=== PATIENT | female | born 1935 | race Caucasian/White ===

== ENCOUNTER 2017-07-03 17:42 | Inpatient (IN) | payer MEDICARE, OTHER ==
[2017-07-03] VITALS (8 sets, daily range): BP systolic 102–153; BP diastolic 49–102
[~2017-07-03] VITALS: Ht 147.3 cm; Wt 49.5 kg
[~2017-07-03 17:42] MED LIST: CARVEDILOL6.25 MG PO; FERROUS SULFAT325 MG PO; LEVOFLOXACIN500 MG PO; METFORMIN HCL500 MG PO; MYRBETRIQ25 MG PO; SULAR17 MG PO
[2017-07-03] MEDS ORDERED: SODIUM CHLORIDE 0.9% 1000ML 1,000 ML ONE (18:13)
[2017-07-03 18:47] LABS: BASOPHILS % 0.1 % (0.0-1.0); HEMATOCRIT 28.9 % (34.2-44.1); LYMPHOCYTES # (AUTO) 1.9 (1.0-3.2); LYMPHOCYTES % 5.2 % (18.0-39.1); MEAN CORPUSCULAR HEMOGLOBIN 30.6 pg (28-32); MEAN CORPUSCULAR HGB CONC 34.6 g/dL (31-35); MEAN CORPUSCULAR VOLUME 88.4 fL (81-99); MONOCYTES # (AUTO) 1.1 (0.2-0.8); MONOCYTES % 2.9 % (4.4-11.3); NEUTROPHILS # (AUTO) 32.5 (2.1-6.9); NEUTROPHILS % 88.1 % (38.7-80.0); PLATELET COUNT 327 x10e3/uL (140-360); RED BLOOD COUNT 3.27 x10e6/uL (3.6-5.1); RED CELL DISTRIBUTION WIDTH 14.2 % (11.7-14.4)
[2017-07-03 18:51] LABS: BILIRUBIN,URINE NEGATIVE (NEGATIVE); CLARITY,URINE CLOUDY (CLEAR); COLOR,URINE YELLOW (YELLOW); KETONES,URINE NEGATIVE (NEGATIVE); LEUKOCYTE ESTERASE ,URINE 2+ (NEGATIVE); URINE UROBILINOGEN 0.2 mg/dL (0.2 - 1)
[2017-07-03 18:54] LABS: INR 1.03
[2017-07-03 18:55] LABS: NITRITE,URINE POSITIVE (NEGATIVE); PARTIAL THROMBOPLASTIN TIME 29.2 seconds (23.8-35.5)
[2017-07-03 18:56] LABS: PROTEIN,URINE DIPSTICK 2+ (NEGATIVE)
[2017-07-03 19:00] LABS: BACTERIA,URINE MANY /HPF; EPITHELIAL CELLS,URINE RARE /LPF; WBC,URINE (MAN) >50 /HPF (0-5)
[2017-07-03 19:02] LABS: ABG PH 7.41 (7.31-7.41)
[2017-07-03 19:02] LABS: ALBUMIN 2.2 g/dL (3.5-5.0); ALBUMIN/GLOBULIN RATIO 0.5 (0.8-2.0); ANION GAP 12.9 mmol/L (8-16); CALCIUM 8.1 mg/dL (8.4-10.2); CREATININE, SERUM 1.08 mg/dL (0.57-1.11)
[2017-07-03 19:05] LABS: POTASSIUM 2.9 mmol/L (3.5-5.1)
--- NOTE | 2017-07-03 19:07 | Diagnostic Imaging Report ---
EXAMINATION: Chest, CHEST SINGLE (PORTABLE) INDICATION: Chest pain COMPARISON: None FINDINGS: LINES: Endotracheal catheter is present with the tip projecting over the expected region of the trachea, positioned 2 cm from the nehemiah. Heart: Normal cardiac silhouette. Vascular: The pulmonary vasculature is within normal limits. Atherosclerotic calcifications of the aortic arch. Mediastinum: No mediastinal, hilar, or axillary mass or lymphadenopathy. Lungs: No parenchymal mass. Right lung base airspace opacity. Pleura: Small bilateral pleural effusions. No pneumothorax. Bones: No acute osseous abnormality. Degenerative changes of the thoracic spine. Degenerative changes of the right shoulder. Median sternotomy wires. Soft tissues: Normal. Impression: Right lung base airspace opacity may represent a developing pneumonia. Small bilateral pleural effusions. Signed by: Dr. Shmuel Rodgers M.D. on 07/03/2017 7:03 PM
[2017-07-03 19:08] LABS: CREATINE KINASE MB 0.6 ng/mL (0.00-5.00); TROPONIN I 0.018 ng/mL (0-0.300)
[2017-07-03] MEDS ORDERED: SODIUM CHLORIDE 0.9% 1000ML 1,000 ML IV SCH (19:10)
[2017-07-03] MEDS ORDERED: AZITHROMYCIN 500MG/SOD CHL 0.9% 250ML BAG IV SCH (19:15)
[2017-07-03] MEDS ORDERED: LEVOFLOXACIN 750MG/DEXTROSE PREMIX BAG 150ML IV SCH (19:15)
[2017-07-03] MEDS ORDERED: LEVOFLOXACIN 500MG/D5W 100ML 0 ML IV ONE (19:19)
[2017-07-03] MEDS ORDERED: POTASSIUM CHLORIDE 20MEQ/100ML 100 ML IV STA (19:45)
--- NOTE | 2017-07-03 19:49 | Diagnostic Imaging Report ---
EXAMINATION: Head CT without contrast. HISTORY:Unresponsive. COMPARISON:None. TECHNIQUE: Multidetector axial images were obtained from the foramen magnum to the vertex without contrast. The images were reconstructed using brain and bone algorithms. Thin section brain images were reformatted into coronal and sagittal planes. Intravenous contrast: None IMAGE QUALITY: Suboptimal evaluation due to motion-related streak artifacts. FINDINGS: Skull/scalp: No abnormality. Parenchyma: Nonspecific few, scattered supratentorial white matter patchy hypodensity are likely related to small vessel ischemic changes. No acute hemorrhage, mass or acute major vascular territorial infarct. Arteries: Atherosclerotic calcification in bilateral carotid siphon and V4 segment of the vertebral arteries. Dural sinuses: No abnormal density suggestive of thrombosis. Ventricles: Mild compensated dilatation due to volume loss. No hydrocephalus. Extra-axial spaces: No abnormal density. Brain volume: Generalized age-related cerebral volume loss. Craniocervical junction: No mass, Chiari malformation, or basilar invagination. Sella: No mass. Paranasal/mastoid sinuses: Imaged portions unremarkable. IMPRESSION: No acute intracranial abnormality, particularly no acute hemorrhage, mass or acute major vascular territorial infarct. Mild supratentorial white matter microvascular ischemic changes. Generalized age-related cerebral volume loss. Signed by: Dr. Kylie James M.D. on 07/03/2017 7:45 PM
[2017-07-03] MEDS ORDERED: POTASSIUM CHLORIDE 20MEQ/100ML 100 ML ONE (19:52)
[2017-07-03] MEDS: KCL 20MEQ/.9 SOD CHL 1,000 ML IV SCH (20:04)
[2017-07-03 20:09] LABS: BAND NEUTROPHILS % (MANUAL) 28 %; LYMPHOCYTES % (MANUAL) 2 % (19-48); MONOCYTES % (MANUAL) 2 % (3.4-9.0); NEUTROPHILS % (MANUAL) 67 % (40-74)
[2017-07-03 20:10] LABS: PLATELET ESTIMATE ADEQUATE; PLATELET MORPHOLOGY COMMENT FEW LARGE; RBC MORPHOLOGY COMMENT NORMAL
[2017-07-03] MEDS ORDERED: ASCORBIC ACID500 MG PO (20:49)
[2017-07-03] MEDS ORDERED: OS-CAL 500+D T1 EACH PO (20:49)
[2017-07-03] MEDS ORDERED: PANTOPRAZOLE SO40 MG PO (20:49)
[2017-07-03] MEDS ORDERED: PERCOCET 10-321 EACH PO (20:49)
[2017-07-03] MEDS ORDERED: GABAPENTIN100 MG PO (20:49)
[2017-07-03] MEDS ORDERED: IMODIUM2 MG PO (20:49)
[2017-07-03] MEDS ORDERED: NOVOLOG100 UNITS1 (20:49)
[2017-07-03] MEDS ORDERED: TRESIBA SC (20:49)
[2017-07-03] MEDS ORDERED: URSODIOL300 MG PO (20:49)
[2017-07-03] MEDS ORDERED: MULTIVITAMINS1 EAC7 PO (20:49)
[2017-07-03] MEDS ORDERED: VOLTAREN100 GM TD (20:49)
[2017-07-03] MEDS ORDERED: VANCOMYCIN HCL 1GM/NS 250 ML BAG IV SCH (21:00)
[2017-07-03] MEDS ORDERED: DEXTROSE 50% SYRINGE 50 ML IV PRN (21:45)
[2017-07-03] MEDS: VANCOMYCIN HCL 1GM/NS 250 ML BAG IV SCH (23:30)
[2017-07-04] VITALS (96 sets, daily range): BP systolic 81–170; BP diastolic 41–105
[2017-07-04] MEDS: FENTANYL CITRATE INJ 2,000 MCG in SODIUM CHLORIDE 0.9% 250ML 210 ML IV PRN (00:10)
[2017-07-04] MEDS ORDERED: ACETAMINOPHEN 325 MG SUPP PR PRN (00:15)
[2017-07-04] MEDS: ALBUTEROL/IPRATROPIUM 3 ML NEB NEB SCH ×4 (01:00→19:57)
[2017-07-04] MEDS: KCL 20MEQ/.9 SOD CHL 1,000 ML IV SCH (04:24)
[2017-07-04 07:17] LABS: BASOPHILS # (AUTO) 0.1 (0.0-0.1); BASOPHILS % 0.4 % (0.0-1.0); HEMATOCRIT 26.5 % (34.2-44.1); HEMOGLOBIN 9.1 g/dL (12.0-16.0); LYMPHOCYTES # (AUTO) 1.6 (1.0-3.2); MEAN CORPUSCULAR HEMOGLOBIN 30.3 pg (28-32); MEAN CORPUSCULAR HGB CONC 34.3 g/dL (31-35); MEAN CORPUSCULAR VOLUME 88.3 fL (81-99); MONOCYTES # (AUTO) 0.6 (0.2-0.8); MONOCYTES % 2.7 % (4.4-11.3); NEUTROPHILS # (AUTO) 19.6 (2.1-6.9); PLATELET COUNT 253 x10e3/uL (140-360); RED CELL DISTRIBUTION WIDTH 14.1 % (11.7-14.4)
[2017-07-04 07:41] LABS: ALANINE AMINOTRANSFERASE 11 IU/L (0-55); ALBUMIN 1.8 g/dL (3.5-5.0); ALBUMIN/GLOBULIN RATIO 0.5 (0.8-2.0); ALKALINE PHOSPHATASE 115 IU/L (40-150); ANION GAP 10.4 mmol/L (8-16); BLOOD UREA NITROGEN 13 mg/dL (7-26); BUN/CREATININE RATIO 16 (6-25); CALCIUM 7.5 mg/dL (8.4-10.2); CARBON DIOXIDE 19 mmol/L (22-29); CHLORIDE 103 mmol/L (98-107); EST GLOMERULAR FILTRATION RATE > 60 ML/MIN (60-); GLUCOSE 79 mg/dL (74-118); PHOSPHORUS 1.4 MG/DL (2.3-4.7); POTASSIUM 3.4 mmol/L (3.5-5.1); SODIUM 129 mmol/L (136-145)
[2017-07-04] MEDS ORDERED: KCL 20MEQ/.9 SOD CHL 1,000 ML IV SCH (07:45)
[2017-07-04 07:55] LABS: MAGNESIUM 0.9 MG/DL (1.3-2.1)
[2017-07-04] MEDS ORDERED: MAGNESIUM SULFATE 2GM/50ML 50 ML IV ONE (08:15)
[2017-07-04] MEDS ORDERED: MAGNESIUM SULF 1GRAM/DEXTROSE 100 ML IV ONE (08:15)
[2017-07-04] MEDS ORDERED: POTASSIUM CHLORIDE 20MEQ/100ML 100 ML IV ONE ×2 (08:15→19:00)
[2017-07-04 09:02] LABS: BAND NEUTROPHILS % (MANUAL) 9 %; EOSINOPHILS % (MANUAL) 1 % (0-7); LYMPHOCYTES % (MANUAL) 3 % (19-48); MONOCYTES % (MANUAL) 3 % (3.4-9.0); NEUTROPHILS % (MANUAL) 84 % (40-74)
[2017-07-04 09:03] LABS: ANISOCYTOSIS SLIGHT; HYPOCHROMASIA SLIGHT; RBC MORPHOLOGY COMMENT NORMAL
[2017-07-04 09:04] LABS: PLATELET ESTIMATE ADEQUATE; PLATELET MORPHOLOGY COMMENT NORMAL
[2017-07-04] MEDS: D5NS/KCL 20MEQ 1,000 ML IV SCH ×3 (10:49→21:02)
[2017-07-04] MEDS: VANCOMYCIN HCL 1GM/NS 250 ML BAG IV SCH (10:50)
[2017-07-04] MEDS ORDERED: DEXTROSE 50% SYRINGE 50 ML IV PRN (18:30)
[2017-07-04] MEDS ORDERED: FUROSEMIDE INJ 10 MG/ML 2 ML VIAL IV ONE (18:45)
[2017-07-04] MEDS: ENOXAPARIN SOD INJ 40 MG/0.4 ML SYR SC SCH (18:57)
[2017-07-04 19:36] LABS: MAGNESIUM 1.6 MG/DL (1.3-2.1); PHOSPHORUS 1.5 MG/DL (2.3-4.7)
[2017-07-04 19:43] LABS: ANION GAP 11.3 mmol/L (8-16); BLOOD UREA NITROGEN 10 mg/dL (7-26); BUN/CREATININE RATIO 12 (6-25); CARBON DIOXIDE 15 mmol/L (22-29); CHLORIDE 107 mmol/L (98-107); CREATININE, SERUM 0.82 mg/dL (0.57-1.11); EST GLOMERULAR FILTRATION RATE > 60 ML/MIN (60-); GLUCOSE 319 mg/dL (74-118); POTASSIUM 4.3 mmol/L (3.5-5.1); SODIUM 129 mmol/L (136-145)
[2017-07-04] MEDS ORDERED: MAGNESIUM SULFATE 2GM/50ML 50 ML IV PRN (20:30)
[2017-07-04] MEDS: FAMOTIDINE 20 MG/2 ML VIAL IV SCH (21:02)
[2017-07-04] MEDS: CEFEPIME 1GM/NS 0.9% 50 ML 50 ML IV SCH (21:02)
[2017-07-04] MEDS ORDERED: CEFOXITIN SOD 1 GM VIAL ONE (21:03)
[2017-07-04] MEDS: INSULIN REGULAR, HUMAN 100 UNIT/1 ML 3ML VIAL SQ SCH (21:03)
[2017-07-04] MEDS: MIDAZOLAM HCL 2 MG/2 ML VIAL IV PRN (23:00)
[2017-07-05] VITALS (69 sets, daily range): BP systolic 77–167; BP diastolic 44–86
--- NOTE | 2017-07-05 00:02 | History and Physical ---
PRIMARY CARE PROVIDER: Dr. Cesar Frost at [facility]. CHIEF COMPLAINT: Unresponsive. HISTORY OF PRESENT ILLNESS: Ms. Feldman is an 81-year-old lady found unresponsive at the [facility] and sent to the ER for evaluation. She was urgently intubated in the ED for altered mental status. REVIEW OF SYSTEMS: Unobtainable as the patient is intubated. PAST MEDICAL HISTORY: Significant for hypertension, coronary artery disease, aortic stenosis, type 2 diabetes and frequent UTIs. She has a history of aortic valve replacement and one vessel CABG in 2010. She has a distant history of hysterectomy. She has had 2 bladder suspensions done in 2005 in an attempt to address these recurrent UTIs. CURRENT MEDICATIONS: Coreg 6.25 mg twice daily. Ascorbic acid 500 mg twice daily. Gabapentin 100 mg twice a day. Multivitamin daily. Myrbetriq extended release 50 mg daily. NovoLog insulin on a sliding scale. Os-Laz + D 500 mg twice a day. Oxycodone 1/2 tablet every 6 hours as needed. for pain. Protonix 20 mg q.a.m. Tresiba flex touch 12 units a day. Ursodiol 300 mg daily. Voltaren gel. ALLERGIES: SHE HAS A STATED ALLERGY TO ITRACONAZOLE. FAMILY HISTORY: Significant for hypertension and diabetes. SOCIAL HISTORY: The patient currently residing at the [facility] where she is being treated for recurrent UTIs. She does smoke, drink or use illegal drugs. She requires quite a bit of assistance with ADLs. PHYSICAL EXAM: PSYCHIATRIC: Patient is awake and following commands. VITAL SIGNS: Blood pressure 116/57. Pulse 96 and regular. Respiratory rate 17, ventilated. O2 sat 98%. Temperature 99.3. . HEENT: Head is atraumatic. Eyes are anicteric with clear conjunctivae. Ears and nares are without erythema or discharge. Oropharynx is clear. NECK: Supple with no masses or thyromegaly. LYMPHATIC SYSTEM: She has no palpable cervical, axillary or inguinal adenopathy. CARDIOVASCULAR: Her heart has a regular rate and rhythm without murmur or extra heart sounds. No peripheral edema. RESPIRATORY: Lungs are clear to auscultation and percussion. She is being ventilated. GASTROINTESTINAL: Abdomen is soft without organomegaly, masses or tenderness. She has normal bowel sounds present. CUTANEOUS: Her skin is warm and dry to touch with no rash or skin breakdown. MUSCULOSKELETAL: Joints are normal alignment without erythema or swelling. She has no calf tenderness. NEUROLOGIC: Exam is nonfocal with intact cranial nerves and no motor or sensory deficits. DIAGNOSTIC STUDIES: Chest x-ray shows right lower lobe atelectasis, possible early pneumonia. CT scan of brain shows no acute disease, but does show extensive microvascular changes and atrophy consistent with age. Her UA has greater than 50 white cells and her urine culture is growing greater than 100,000 gram-negative rods. BNP 347.0. Troponin 0.018, lactic acid 10.5. Her chemistry profile: Sodium is 121. Potassium 2.9, chloride 92. CO2 19. Calcium 8.1. Glucose 137. Creatinine is 1.08. BUN 17 for a GFR 49. After 24 hour hydration with D5 normal saline and potassium, patient has a sodium of 129, potassium 3.4. CO2 is still 19. Creatinine 0.80. BUN 13 for a normal GFR. Calcium 7.5. Magnesium 0.9. Phosphorus 1.4. Glucose 79. Transaminases, bilirubin and alkaline phos are normal. CBC shows a white count of 38.8 thousand with 88% neutrophils, 5% lymphocytes and 3% monocytes. Hemoglobin 10.0, hematocrit 28.9 and platelet count 327,000. IMPRESSION AND PLAN 1. Acute respiratory failure secondary to altered mental status and sepsis. The patient was intubated and is on a ventilator, admitted to ICU. Pulmonary services managing the ventilator weaning. 2. Urinary tract infection with sepsis. The patient is started on IV vancomycin, Levaquin and cefepime in view of previous recurrent UTIs [facility]. 3. Possible right lower lobe pneumonia. Again, will continue Levaquin and cefepime and will check another chest x-ray tomorrow. Will consult infectious disease for assistance with the recurrent urinary tract infection and sepsis. 4. Hypertension. Will continue her Coreg. 5. Type 2 diabetes. Will use sliding scale insulin. 6. For prophylaxis will use Lovenox for DVT prophylaxis and Pepcid for GI prophylaxis. Job#: [id number]
[2017-07-05] MEDS: MIDAZOLAM HCL 2 MG/2 ML VIAL IV PRN (01:00)
[2017-07-05] MEDS: ALBUTEROL/IPRATROPIUM 3 ML NEB NEB SCH ×4 (01:08→19:30)
[2017-07-05] MEDS: FENTANYL CITRATE INJ 2,000 MCG in SODIUM CHLORIDE 0.9% 250ML 210 ML IV PRN ×2 (01:15→04:46)
--- NOTE | 2017-07-05 01:19 | Consultation ---
DATE OF CONSULTATION: July 04, 2017 PULMONARY/CRITICAL CARE MEDICINE CONSULT REFERRING PHYSICIAN: Dr. Frost REASON FOR REFERRAL: Acute respiratory failure. HISTORY: Ms. Feldman is a pleasant 81-year-old female with acute respiratory failure. Patient has been having worsening pain over the last year. While she was basically independent per the family, she did have a fracture of the hip in about November 2016. Since then, she is confined to the home. She does walk with the walker inside the house. She used to get out 3 times a week, but now is mostly homebound. Patient was having repetitive urinary tract infection. Furthermore, patient with issues with eating and labs. Family reports "malnutrition" diagnosis. Patient was at nursing facility, where she has recovered from recent colitis and urinary tract infection. Patient was having worsening mentation. She is having appearance of more shortness of breath. She was transferred to acute care facility [facility]. Patient came to the ER and was found to have abnormal urinalysis. Furthermore, chest x-ray with some infiltrates versus atelectasis plus effusion. She was intubated. Low urine output so far. I am consulted. PAST MEDICAL HISTORY: Coronary artery disease, status post CABG, valvular disease, status post valve replacement. Weakness. Recurrent UTI. Hip fracture. MEDICATIONS: Medication list reviewed per electronic record. ALLERGIES: ITRACONAZOLE. SOCIAL HISTORY: Cannot get it as she is not verbalizing. No smoking, no drinking, no drugs. FAMILY HISTORY: Noncontributory to this condition. REVIEW OF SYSTEMS: Cannot get it as she is intubated. OBJECTIVE VITAL SIGNS: 100.7 temperature maximum. Other vital signs noted per record. She is on pressors. GENERAL: On vent, pale, awake despite ventilator. HEENT: Normocephalic, atraumatic. NECK: Supple. Throat midline. LUNGS: Bilateral air entry, few rhonchi. CARDIOVASCULAR: S1/S2. No murmurs, rubs or gallops. ABDOMEN: Soft, nontender. EXTREMITIES: No clubbing, no cyanosis. There is the 1+ edema. INTEGUMENT: No rash, no purpura. LABS: 121 sodium, phosphorus 1.4. Magnesium 0.9. 37,000 white count, 26 hematocrit, 253,000 platelets, 20% bands. BNP was 348. Albumin was 1.8. INR is 1.03. IMPRESSIONS AND PLAN 1. Acute respiratory failure, intubated. 2. Severe sepsis. 3. Clinical likely urinary tract infection, severe. 4. Abnormal chest x-ray possible pneumonia. 5. Abnormal chest x-ray, possible fluid overload. 6. Recurrent urinary tract infection. 7. Electrolyte abnormalities including hyponatremia, hypophosphatemia, hypomagnesemia, hypokalemia. 8. Severe protein-calorie malnutrition. 9. Coronary artery disease. 10. Aortic valve replacement. 11. Other history not totally known. Continue current treatment. Follow up on high-dose antibiotics. Will modify and adjust dosing as needed. Follow up kidney function. Good amount of fluid bolusing today. Later, towards evening, we gave some diuretics. She is responding well. She remains on pressors. Will consider extubating with further improvement. I discussed in detail with family, staff, and physicians. Thank you very much, Dr. Frost, for allowing me the chance to participate in the care of Ms. Feldman. Do not hesitate to contact me if I can help in any way. Thirty minutes of direct care today, multiple evaluations, and multiple followups. Job#: [id number] CQ
[2017-07-05] MEDS: CEFEPIME 1GM/NS 0.9% 50 ML 50 ML IV SCH ×2 (01:50→09:48)
[2017-07-05] MEDS: INSULIN REGULAR, HUMAN 100 UNIT/1 ML 3ML VIAL SQ SCH ×3 (03:25→16:30)
[2017-07-05 06:05] LABS: BASOPHILS # (AUTO) 0.1 (0.0-0.1); BASOPHILS % 0.3 % (0.0-1.0); EOSINOPHILS % 0.1 % (0.0-6.0); HEMATOCRIT 25.7 % (34.2-44.1); HEMOGLOBIN 8.7 g/dL (12.0-16.0); LYMPHOCYTES # (AUTO) 2.5 (1.0-3.2); LYMPHOCYTES % 9.1 % (18.0-39.1); MEAN CORPUSCULAR HEMOGLOBIN 30.7 pg (28-32); MEAN CORPUSCULAR HGB CONC 33.9 g/dL (31-35); MEAN CORPUSCULAR VOLUME 90.8 fL (81-99); MONOCYTES # (AUTO) 1.4 (0.2-0.8); NEUTROPHILS % 82.9 % (38.7-80.0); PLATELET COUNT 245 x10e3/uL (140-360); RED BLOOD COUNT 2.83 x10e6/uL (3.6-5.1); RED CELL DISTRIBUTION WIDTH 14.5 % (11.7-14.4)
[2017-07-05 06:25] LABS: ALANINE AMINOTRANSFERASE 9 IU/L (0-55); ALBUMIN 1.7 g/dL (3.5-5.0); ALBUMIN/GLOBULIN RATIO 0.5 (0.8-2.0); ALKALINE PHOSPHATASE 118 IU/L (40-150); ANION GAP 9.3 mmol/L (8-16); BLOOD UREA NITROGEN 10 mg/dL (7-26); BUN/CREATININE RATIO 12 (6-25); CALCIUM 7.4 mg/dL (8.4-10.2); CARBON DIOXIDE 17 mmol/L (22-29); CHLORIDE 111 mmol/L (98-107); CREATININE, SERUM 0.81 mg/dL (0.57-1.11); EST GLOMERULAR FILTRATION RATE > 60 ML/MIN (60-); GLUCOSE 99 mg/dL (74-118); MAGNESIUM 1.5 MG/DL (1.3-2.1); PHOSPHORUS 1.3 MG/DL (2.3-4.7); POTASSIUM 3.3 mmol/L (3.5-5.1); SODIUM 134 mmol/L (136-145)
[2017-07-05 06:58] LABS: FREE T4 (FREE THYROXINE) 1.12 ng/dL (0.8-1.8); THYROID STIMULATING HORMONE 2.939 uIU/mL (0.350-4.940)
[2017-07-05] MEDS: D5NS/KCL 20MEQ 1,000 ML IV SCH ×2 (06:58→19:55)
[2017-07-05] MEDS: POTASSIUM CHLORIDE 20MEQ/100ML 200 ML IV PRN (06:59)
--- NOTE | 2017-07-05 07:02 | Diagnostic Imaging Report ---
EXAM: CHEST SINGLE (PORTABLE), AP 1 view DATE: 07/05/2017 5:00 AM Time stamp on exam: O 0559 hours INDICATION: Intubated, pneumonia COMPARISON: AP view of the chest July 03, 2017 FINDINGS: LINES/TUBES: Stable position of endotracheal tube. LUNGS: Vascular congestion and bibasilar atelectasis. PLEURA: Small bilateral layering pleural effusions. HEART AND MEDIASTINUM: Stable appearance. BONES AND SOFT TISSUES: Advanced degenerative changes of the right shoulder. IMPRESSION: No interval change. Signed by: Dr. Rafia Redman M.D. on 07/05/2017 6:59 AM
[2017-07-05] MEDS ORDERED: POTASSIUM CHLORIDE 20MEQ/100ML 100 ML ONE (07:06)
[2017-07-05] MEDS ORDERED: VANCOMYCIN HCL 1GM/NS 250 ML BAG IV SCH (09:00)
[2017-07-05] MEDS ORDERED: VANCOMYCIN 1GM/NS 250 ML 250 ML IV SCH (09:00)
[2017-07-05] MEDS: FAMOTIDINE 20 MG/2 ML VIAL IV SCH ×2 (09:48→22:25)
[2017-07-05 10:03] LABS: BAND NEUTROPHILS % (MANUAL) 2 %; LYMPHOCYTES % (MANUAL) 7 % (19-48); MONOCYTES % (MANUAL) 4 % (3.4-9.0); NEUTROPHILS % (MANUAL) 87 % (40-74)
[2017-07-05 10:04] LABS: HYPOCHROMASIA SLIGHT; PLATELET ESTIMATE ADEQUATE
[2017-07-05 10:05] LABS: ANISOCYTOSIS SLIGHT
[2017-07-05 10:06] LABS: PLATELET MORPHOLOGY COMMENT NORMAL; RBC MORPHOLOGY COMMENT NORMAL
[2017-07-05] MEDS ORDERED: POTASSIUM CHLORIDE 20MEQ/100ML 100 ML IV ONE ×2 (11:30→11:45)
[2017-07-05] MEDS ORDERED: MAGNESIUM SULF 1GRAM/DEXTROSE 100 ML IV ONE (11:30)
[2017-07-05] MEDS ORDERED: FUROSEMIDE INJ 10 MG/ML 4 ML VIAL ONE (11:32)
[2017-07-05] MEDS ORDERED: LEVOFLOXACIN 750MG/D5W 150ML 150 ML IV SCH (12:00)
[2017-07-05] MEDS: FUROSEMIDE INJ 10 MG/ML 2 ML VIAL IV SCH (12:14)
--- NOTE | 2017-07-05 13:23 | Progress Note ---
DATE: July 05, 2017 PULMONARY MEDICINE PROGRESS NOTE SUBJECTIVE: Ernie Feldman was seen and examined at bedside. She remains intubated at this time. White count did come down minimally. However, she did respond very well yesterday to the fluid loading and then diuresis. Her C. diff assay did come back positive as she did have some diarrhea. Liters in 3.6, liters out 2.7. REVIEW OF SYSTEMS: No ability to get as she is intubated. OBJECTIVE VITAL SIGNS: Afebrile. Vital signs noted per electronic record. GENERALLY: No acute distress, alert and calm on ventilator. HEENT: Normocephalic, atraumatic. NECK: Supple. Throat midline. LUNGS: Bilateral air entry, a few rhonchi. CARDIOVASCULAR: S1 and S2. No murmurs, rubs or gallops. ABDOMINAL: Soft, nontender. EXTREMITIES: No clubbing, no cyanosis. There is 1+ edema. INTEGUMENT: No rash. No purpura. LABS: Potassium 3.3, sodium 134, BUN 10, creatinine 0.81. White count 28, hematocrit 37, platelets 245. IMPRESSION AND PLAN 1. Acute respiratory failure, intubated. 2. Clostridium difficile colitis. 3. Urinary tract infection, gram-negative, greater than 100,000 per high-power field. 4. Secondary fluid overload. 5. Possible pneumonia, less likely. 6. Hypokalemia. 7. Hypomagnesemia. 8. Hypophosphatemia. 9. Weakness. Continue current treatment at this time. Antibiotics have been adjusted. Follow up cultures for sensitivity. Patient will go for CAT scan reportedly of the abdomen today. Thereafter, we will consider extubation if she is able to tolerate. Give some Lasix and diurese her more before the possibility of extubation if her x-ray today is worse. Will follow up closely. We have been continuously repleting electrolytes given the fluid shifting. Greater than 30 minutes in direct care today in coordination. Job#: [id number] EV
--- NOTE | 2017-07-05 15:24 | Diagnostic Imaging Report ---
PROCEDURE: CT ABDOMEN AND PELVIS WITHOUT CONTRAST TECHNIQUE: The abdomen and pelvis were scanned utilizing a multidetector helical scanner from the diaphragm to the lesser trochanter after the oral administration of water. No IV contrast was administered per protocol. Coronal and sagittal multiplanar reformations were obtained. COMPARISON: None. INDICATIONS: sepsis, stone protocol FINDINGS: ABSENCE OF INTRAVENOUS CONTRAST DECREASES SENSITIVITY FOR DETECTION OF FOCAL LESIONS AND VASCULAR PATHOLOGY. LOWER THORAX: Small bilateral pleural effusions. Right lower lobe consolidation with air bronchograms (series 3, image 5). Mild compressive atelectasis of the left lower lobe. Atherosclerotic calcification of the aortic valve, coronary arteries and likely mitral anulus.. HEPATOBILIARY: Markedly nodular contour of the liver, consistent with cirrhosis. 2 mm calcification in the right hepatic lobe, likely representing a calcified granuloma (series 3, image 57). No other focal lesions. No intrahepatic or extrahepatic biliary ductal dilation. Gallbladder is hydropic. No radiopaque stones. No wall thickening. SPLEEN: No splenomegaly. PANCREAS: Marked fatty replacement of the pancreas and atrophy. No ductal dilation or focal lesion. ADRENALS: No adrenal nodules. KIDNEYS/URETERS: Right: 2-3 mm nonobstructing calculus in the interpolar region (series 3, image 45). 3-4 mm, nonobstructing calculus in the interpolar region (series 3, image 47). No other renal or any ureteral calculi. No hydronephrosis or obstruction. No renal contour abnormality. Mild surrounding perinephric stranding. Left: No renal or ureteral calculi. No hydronephrosis or obstruction. No renal contour abnormality. Mild perinephric stranding. PELVIC ORGANS/BLADDER: Evaluation of the pelvis is limited by beam hardening artifact from bilateral hip hardware. Daly catheter in place. Moderate circumferential bladder wall thickening. No definite focal lesions. The uterus is nonvisualized. No adnexal masses. PERITONEUM / RETROPERITONEUM: Small amount of perihepatic and abdominal ascites. Moderate amount of fluid in the pelvis. LYMPH NODES: No lymphadenopathy. VESSELS: Atherosclerotic calcification of the abdominal aorta, iliac vessels and aortic branches. GI TRACT: Moderate diffuse wall thickening involving the cecum, ascending, proximal and distal transverse, and proximal descending colon, with mild surrounding stranding (for example, series 3, image 77 in the hepatic flexure). No bowel dilation or evidence of obstruction. BONES AND SOFT TISSUES: Marked osteopenia with compression fractures of L1 and L2 status post vertebroplasty changes. Decreased height of the L4 and T12 vertebral bodies, likely representing chronic compression deformities. Bilateral humeral neck and head screws. A right femoral intramedullary carmencita is also noted. Generalized anasarca. Several rounded focal areas of nodularity and stranding in the subcutaneous soft tissues of the anterior lower abdomen/pelvis likely represent injection sites (for example series 3, images 111 and 105).. IMPRESSION: 1. 2 nonobstructing calculi in the right kidney. No ureteral, or bladder calculi. No hydronephrosis or obstruction. 2. Right lower lobe consolidation with air bronchograms, likely reflecting a combination of atelectasis and pneumonia. 3. Small bilateral pleural effusions. 4. Findings in the cecum, ascending, proximal and distal transverse, and proximal descending colon are suspicious for colitis, probably infectious (particularly if the patient has been on antibiotics). Portal colopathy is also considered. Ischemic colitis is another consideration, it cannot be assessed on this exam given the lack of intravenous contrast. 5. Hydropic gallbladder. No wall thickening or radiopaque stones are identified. 6. Moderate circumferential bladder wall thickening. Correlate for cystitis. 7. Cirrhotic liver. No focal lesions noted in this noncontrast exam. Babatunde Shelton M.D. Dictated by: Babatunde Shelton M.D. on 07/05/2017 at 15:32 Electronically approved by: Babtaunde Shelton M.D. on 07/05/2017 at 15:32
--- NOTE | 2017-07-05 16:42 | Consultation ---
DATE OF CONSULTATION: July 05, 2017 REASON FOR CONSULTATION: Sepsis. HISTORY OF PRESENT ILLNESS: This patient is an 81-year-old white female who is currently at [facility] ICU intubated. There is no family. History was taken mainly from the chart. The patient has history of coronary artery disease, hypertension, aortic stenosis, type 2 diabetes mellitus, recurrent UTI, history of aortic valve replacement, history of CABG in 2010, hysterectomy in the past, 2 bladder suspension surgeries in 2005. Patient comes into the emergency room with shortness of breath, altered mental status, and she was intubated in the emergency room. Today I was consulted to see her. Her stools came back positive for C. diff. The patient was in the intensive care unit, intubated, sedated. PAST MEDICAL HISTORY: As above. PAST SURGICAL HISTORY: As above. ALLERGIES: NKA. SOCIAL HISTORY: Does not smoke, no drug abuse or alcohol abuse. FAMILY HISTORY: Could not be obtained. REVIEW OF SYSTEMS: Could not be obtained. LABORATORY DATA: On admission white count was 36.8, came down to 22 and went up to 27, hemoglobin 10, hematocrit 28, sodium 134, potassium 3.3, creatinine of 0.8. Urine showing Citrobacter. C. diff. was positive. Chest x-ray showed no acute changes. PHYSICAL EXAMINATION: GENERAL: She was intubated, sedated. VITALS: Stable currently, afebrile. Temperature 98.4, T max has been 100.7. HEENT: Normocephalic. NECK: Supple. No JVD. No lymphadenopathy. No thyromegaly. CHEST: A few crackles. COR: No murmurs. ABDOMEN: Soft. Distended. EXTREMITIES: No edema. IMPRESSION AND PLAN: Sepsis, concerned due to Clostridium difficile. Suggest to discontinue Levaquin and cefepime. Continue oral vancomycin. Add metronidazole. Recheck CBC. Recheck chem panel. Will follow with you. Thank you for asking me to see this patient. Job#: [id number]
[2017-07-05] MEDS: ENOXAPARIN SOD INJ 40 MG/0.4 ML SYR SC SCH (17:55)
[2017-07-05] MEDS: VANCOMYCIN 250MG/5ML ORAL SOLN PO SCH ×2 (17:55→18:00)
[2017-07-05] MEDS: METRONIDAZOLE 500MG/NS 100ML 100 ML IV SCH (18:03)
[2017-07-06] VITALS (26 sets, daily range): BP systolic 91–166; BP diastolic 51–97
[2017-07-06] MEDS: METRONIDAZOLE 500MG/NS 100ML 100 ML IV SCH ×4 (00:14→23:29)
[2017-07-06] MEDS: VANCOMYCIN 250MG/5ML ORAL SOLN PO SCH ×5 (00:14→23:29)
[2017-07-06] MEDS: FUROSEMIDE INJ 10 MG/ML 2 ML VIAL IV SCH ×4 (00:14→21:03)
[2017-07-06] MEDS: INSULIN REGULAR, HUMAN 100 UNIT/1 ML 3ML VIAL SQ SCH ×5 (00:25→23:22)
[2017-07-06] MEDS: ALBUTEROL/IPRATROPIUM 3 ML NEB NEB SCH ×4 (02:20→19:05)
[2017-07-06 06:10] LABS: BASOPHILS # (AUTO) 0.1 (0.0-0.1); BASOPHILS % 0.3 % (0.0-1.0); EOSINOPHILS # (AUTO) 0.1 (0.0-0.4); EOSINOPHILS % 0.3 % (0.0-6.0); HEMATOCRIT 29.2 % (34.2-44.1); HEMOGLOBIN 9.9 g/dL (12.0-16.0); LYMPHOCYTES # (AUTO) 3.1 (1.0-3.2); LYMPHOCYTES % 12.5 % (18.0-39.1); MEAN CORPUSCULAR HEMOGLOBIN 30.2 pg (28-32); MEAN CORPUSCULAR HGB CONC 33.9 g/dL (31-35); MONOCYTES # (AUTO) 1.2 (0.2-0.8); MONOCYTES % 5.1 % (4.4-11.3); NEUTROPHILS # (AUTO) 19.2 (2.1-6.9); NEUTROPHILS % 78.7 % (38.7-80.0); PLATELET COUNT 232 x10e3/uL (140-360); RED BLOOD COUNT 3.28 x10e6/uL (3.6-5.1); RED CELL DISTRIBUTION WIDTH 14.8 % (11.7-14.4)
[2017-07-06 06:30] LABS: ALBUMIN 1.9 g/dL (3.5-5.0); ALBUMIN/GLOBULIN RATIO 0.5 (0.8-2.0); ANION GAP 13.1 mmol/L (8-16); CALCIUM 7.8 mg/dL (8.4-10.2); CREATININE, SERUM 0.91 mg/dL (0.57-1.11); MAGNESIUM 1.3 MG/DL (1.3-2.1); PHOSPHORUS 2.2 MG/DL (2.3-4.7); POTASSIUM 3.1 mmol/L (3.5-5.1)
--- NOTE | 2017-07-06 06:36 | Diagnostic Imaging Report ---
EXAM: CHEST SINGLE (PORTABLE), AP 1 view DATE: 07/06/2017 5:00 AM Time stamp on exam: 0534 hours INDICATION: Intubated, respiratory failure COMPARISON: AP view of the chest July 05, 2017 FINDINGS: LINES/TUBES: Stable position of endotracheal tube. The nasal/orogastric tube terminates in expected location of the proximal stomach. LUNGS: Bibasilar atelectasis. PLEURA: Layering bilateral pleural effusions. HEART AND MEDIASTINUM: Stable appearance. BONES AND SOFT TISSUES: No acute findings. IMPRESSION: Interval placement of nasal/orogastric tube, otherwise no significant interval change in appearance of the chest. Signed by: Dr. Rafia Redman M.D. on 07/06/2017 6:33 AM
[2017-07-06 08:18] LABS: BAND NEUTROPHILS % (MANUAL) 4 %; LYMPHOCYTES % (MANUAL) 14 % (19-48); MONOCYTES % (MANUAL) 4 % (3.4-9.0); NEUTROPHILS % (MANUAL) 78 % (40-74)
[2017-07-06 08:19] LABS: ANISOCYTOSIS SLIGHT; HYPOCHROMASIA SLIGHT; PLATELET ESTIMATE ADEQUATE; PLATELET MORPHOLOGY COMMENT NORMAL; RBC MORPHOLOGY COMMENT NORMAL
[2017-07-06] MEDS: FAMOTIDINE 20 MG/2 ML VIAL IV SCH ×2 (09:00→21:03)
[2017-07-06] MEDS ORDERED: MAGNESIUM OXIDE 400 MG TAB PO ONE (14:30)
[2017-07-06] MEDS: POTASSIUM CHLORIDE 20MEQ/15ML UDC NG SCH ×2 (14:45→19:42)
--- NOTE | 2017-07-06 15:56 | Progress Note ---
DATE: July 06, 2017 PULMONARY CRITICAL CARE MEDICINE PROGRESS NOTE SUBJECTIVE: Mrs. Feldman was seen and seen and examined at the bedside. She continues to be in the ICU at this time. She is intubated. She has had sedation on hold for greater than 4 hours. She is breathing about 5 liters a minute now, and obviously under the effects of some of the sedation. However, she does awaken readily, but she goes back to sleep when left alone. The patient otherwise with good urine output on the diuretics. REVIEW OF SYSTEMS: Unable to get as she is intubated. OBJECTIVE VITAL SIGNS: Afebrile. Vital signs noted per electronic record. GENERAL: In no acute distress, alert and calm. HEENT: Normocephalic, atraumatic NECK: Supple. Throat midline. LUNGS: Bilateral air entry, few rhonchi. CARDIOVASCULAR: S1 and S2 with no murmurs, rubs or gallops. ABDOMEN: Soft, nontender. EXTREMITIES: No clubbing or cyanosis. There is trace edema to the legs. INTEGUMENT: No rash, no purpura. IMPRESSION 1. Acute respiratory failure, intubated. 2. Fluid overload. 3. Possible pneumonia. 4. Clostridium difficile colitis. 5. Urinary tract infection, severe. 6. Hypokalemia. PLAN: Continue diuresis. Replace potassium aggressively. Will continue to try to get the patient extubated today. Multiple evaluations being done. The patient will continued on sedation holiday. Greater than 30 minutes of direct care today. Will continue to follow closely. Job#: [id number]
[2017-07-06] MEDS: ENOXAPARIN SOD INJ 40 MG/0.4 ML SYR SC SCH (19:01)
[2017-07-06] MEDS: D5NS/KCL 20MEQ 1,000 ML IV SCH (19:31)
--- NOTE | 2017-07-06 20:43 | Diagnostic Imaging Report ---
A single frontal view of the chest. HISTORY: PICC line insertion COMPARISON: Chest radiograph July 06, 2017 DISCUSSION: Portable technique, limits sensitivity of the exam. Multiple overlying tubes and lines. Tubes/Lines: The endotracheal tube and nasogastric/orogastric tube appear unchanged. Interval placement of a right upper extremity PICC line, the tip projects at the level of the distal superior vena cava. Lungs and pleura: Low lung volumes result in bibasilar vascular crowding, accentuation of the pulmonary interstitial markings, central pulmonary vasculature, and the cardiac silhouette. Allowing for these limitations, the findings are as follows: Slightly decreased right basilar opacity. Heart and mediastinum: The cardiomediastinal silhouette appears unremarkable. IMPRESSION: Status post placement of a right upper extremity PICC line with the tip at the level of the distal superior vena cava. Signed by: Dr. Kennedy Mendez D.O., M.M.M. on 07/06/2017 8:39 PM
[2017-07-07] VITALS (72 sets, daily range): BP systolic 101–177; BP diastolic 57–111
[2017-07-07] MEDS: ALBUTEROL/IPRATROPIUM 3 ML NEB NEB SCH ×3 (03:00→19:40)
[2017-07-07] MEDS: FUROSEMIDE INJ 10 MG/ML 2 ML VIAL IV SCH ×3 (05:05→21:25)
[2017-07-07] MEDS: VANCOMYCIN 250MG/5ML ORAL SOLN PO SCH ×4 (05:05→23:17)
[2017-07-07] MEDS: INSULIN REGULAR, HUMAN 100 UNIT/1 ML 3ML VIAL SQ SCH ×4 (05:12→23:11)
[2017-07-07] MEDS: METRONIDAZOLE 500MG/NS 100ML 100 ML IV SCH ×3 (08:00→23:16)
[2017-07-07 08:57] LABS: BASOPHILS # (AUTO) 0.1 (0.0-0.1); BASOPHILS % 0.4 % (0.0-1.0); HEMATOCRIT 29.9 % (34.2-44.1); HEMOGLOBIN 10.1 g/dL (12.0-16.0); LYMPHOCYTES # (AUTO) 2.1 (1.0-3.2); LYMPHOCYTES % 12.4 % (18.0-39.1); MEAN CORPUSCULAR HEMOGLOBIN 30.1 pg (28-32); MEAN CORPUSCULAR HGB CONC 33.8 g/dL (31-35); MONOCYTES # (AUTO) 1.3 (0.2-0.8); MONOCYTES % 7.7 % (4.4-11.3); NEUTROPHILS # (AUTO) 12.7 (2.1-6.9); NEUTROPHILS % 74.7 % (38.7-80.0); PLATELET COUNT 231 x10e3/uL (140-360); RED BLOOD COUNT 3.36 x10e6/uL (3.6-5.1); RED CELL DISTRIBUTION WIDTH 14.6 % (11.7-14.4)
[2017-07-07] MEDS: FAMOTIDINE 20 MG/2 ML VIAL IV SCH ×2 (09:00→21:11)
[2017-07-07 09:13] LABS: ANION GAP 14.1 mmol/L (8-16); CREATININE, SERUM 1.1 mg/dL (0.57-1.11); POTASSIUM 3.1 mmol/L (3.5-5.1)
--- NOTE | 2017-07-07 09:15 | Diagnostic Imaging Report ---
PROCEDURE:CHEST SINGLE (PORTABLE) TECHNIQUE:Portable AP chest INDICATION:Pneumonia COMPARISON:Patients [facility], DX, CHEST XRAY LINE PLACEMENT, 07/06/2017, 20:07. FINDINGS: See conclusion. CONCLUSION: 1. Enteric tube tip in the gastric body. 2. Right PICC terminating in the low SVC. 3. Right middle and lower lobe airspace opacity unchanged from July 06 consistent with pneumonia. No cavitation. 4. No pleural effusions. 5. Stable cardiomediastinal silhouette, with normal heart size. Midline sternotomy wires intact. 6. Grossly intact skeleton. Severe right glenohumeral degenerative change. Dictated by: Kike Villalta M.D. on 07/07/2017 at 9:24 Electronically approved by: Kike Villalta M.D. on 07/07/2017 at 9:24
[2017-07-07] MEDS ORDERED: POTASSIUM CHLORIDE 20MEQ/15ML UDC NG NR ×2 (11:30→13:30)
[2017-07-07] MEDS: MEROPENEM 500 MG VIAL IV SCH ×2 (12:00→21:12)
[2017-07-07 12:13] LABS: BAND NEUTROPHILS % (MANUAL) 1 %; LYMPHOCYTES % (MANUAL) 14 % (19-48); METAMYELOCYTES % (MANUAL) 2 % (0-0); MONOCYTES % (MANUAL) 11 % (3.4-9.0); MYELOCYTES % (MANUAL) 1 % (0-0); NEUTROPHILS % (MANUAL) 71 % (40-74); PLATELET MORPHOLOGY COMMENT FEW LARGE
[2017-07-07 12:14] LABS: ANISOCYTOSIS SLIGHT; HYPOCHROMASIA SLIG; PLATELET ESTIMATE ADEQUATE; RBC MORPHOLOGY COMMENT NORMAL
[2017-07-07] MEDS ORDERED: SODIUM CHLORIDE 0.9% 250ML 250 ML ONE (12:56)
--- NOTE | 2017-07-07 13:06 | Diagnostic Imaging Report ---
PROCEDURE:CHEST SINGLE (PORTABLE) TECHNIQUE:Portable AP chest INDICATION:Endotracheal tube positioning COMPARISON:Patients [facility], , CHEST SINGLE (PORTABLE), 07/07/2017, 8:46. FINDINGS: See conclusion. CONCLUSION: 1. Endotracheal tube tip about 2 cm from the nehemiah. 2. Nasogastric tube tip in the gastric body. 3. Right PICC terminating in the high SVC. 4. Stable right lower lobe airspace opacity consistent with atelectasis with or without pneumonia. 5. Intact skeleton. 6. No interval change from 8:46 AM. Dictated by: Kike Villalta M.D. on 07/07/2017 at 13:15 Electronically approved by: Kike Villalta M.D. on 07/07/2017 at 13:15
[2017-07-07] MEDS ORDERED: MEROPENEM 500MG 500 MG in SODIUM CHLORIDE 0.9% 50ML 50 ML IV SCH (14:00)
[2017-07-07 14:04] LABS: ABG HCO3 27 mmol/L (23-28); ABG PCO2 29 mmHg (41-51); ABG PH 7.58 (7.31-7.41); ABG PO2 203 mmHg (80-105)
[2017-07-07] MEDS ORDERED: ONDANSETRON HCL INJ 2 MG/ML VIAL IV PRN (15:00)
--- NOTE | 2017-07-07 16:06 | Progress Note ---
DATE: July 07, 2017 PULMONARY MEDICINE PROGRESS NOTE SUBJECTIVE: Mrs. Feldman was seen and examined at bedside. Temperature maximum 101.3. IV fluid at 40 mL per hour. Urine 650 mL over 5 hours. Chest x-ray with borderline low endotracheal tube, which was felt reasonable after repeat chest x-ray. D5 NS at 40 mL per hour right now. Patient still with significant apnea during weaning trials, which have been going on all night and during the morning. Therefore, no extubation. REVIEW OF SYSTEMS: No ability to get as she is intubated. OBJECTIVE VITAL SIGNS: Afebrile. Vital signs noted per electronic record. GENERALLY: No acute distress, looks amazingly well off sedation on ventilator. HEENT: Normocephalic, atraumatic. NECK: Supple. Throat midline. LUNGS: Bilateral air entry, limited, a few rhonchi. CARDIOVASCULAR: S1 and S2. No murmurs, rubs or gallops. ABDOMINAL: Soft, nontender. EXTREMITIES: No clubbing, no cyanosis. There is trace edema. INTEGUMENT: No rash. No purpura. LABS: Potassium 3.1, BUN 9, creatinine 1.1. White count 17, hematocrit 30, platelets 231. Chest x-ray with continuing improvement in the edema versus pneumonia. IMPRESSION AND PLAN 1. Clostridium difficile colitis. 2. Urinary tract infection, citrobacter. 3. Possible pneumonia, seems less likely. 4. Fluid overload. 5. Acute kidney injury, resolving. 6. Continued apnea, possible chronic apnea versus new acute. 7. Presumed toxic-metabolic encephalopathy. 8. Hypokalemia. Continue diuresis. Will consider decreasing diuretics tomorrow. Continue sodium and potassium following potassium repletion today. Start tube feeds as we are not extubating yet. Follow up closely and will extubate her once she is not having these apneas. Will follow along closely. Greater than 30 minutes in direct care today, multiple evaluations. Job#: [id number] JOHN
[2017-07-07] MEDS: ENOXAPARIN SOD INJ 40 MG/0.4 ML SYR SC SCH (17:00)
[2017-07-07] MEDS: POTASSIUM CHLORIDE 20MEQ/100ML 200 ML IV PRN (19:33)
[2017-07-07] MEDS ORDERED: METOPROLOL TARTRATE INJ 1 MG/ML VIAL ONE ×2 (19:57→20:19)
[2017-07-07] MEDS ORDERED: AMIODARONE HCL 360MG 200 ML IV PRN (20:30)
[2017-07-07] MEDS ORDERED: AMIODARONE HCL 150MG 100 ML IV ONE (20:30)
[2017-07-07] MEDS ORDERED: AMIODARONE HCL 900 MG in DEXTROSE 5 % 500ML BOTTLE 500 ML IV SCH (20:30)
[2017-07-07] MEDS ORDERED: METOPROLOL TARTRATE INJ 1 MG/ML VIAL IV PRN (20:30)
[2017-07-07] MEDS ORDERED: METOPROLOL TARTRATE INJ 1 MG/ML VIAL IV ONE ×2 (20:45→20:55)
[2017-07-07] MEDS ORDERED: AMIODARONE HCL 900 MG in DEXTROSE 5 % 500ML BOTTLE 500 ML IV PRN (20:45)
[2017-07-07] MEDS ORDERED: AMIODARONE HCL 150 MG in DEXTROSE 5% 100ML 100 ML IV ONE (20:45)
[2017-07-07 20:52] LABS: BASOPHILS # (AUTO) 0.1 (0.0-0.1); BASOPHILS % 0.3 % (0.0-1.0); HEMATOCRIT 30.8 % (34.2-44.1); HEMOGLOBIN 10.6 g/dL (12.0-16.0); LYMPHOCYTES # (AUTO) 2.3 (1.0-3.2); LYMPHOCYTES % 10.1 % (18.0-39.1); MEAN CORPUSCULAR HEMOGLOBIN 30.5 pg (28-32); MEAN CORPUSCULAR HGB CONC 34.4 g/dL (31-35); MEAN CORPUSCULAR VOLUME 88.8 fL (81-99); MONOCYTES # (AUTO) 1.7 (0.2-0.8); MONOCYTES % 7.5 % (4.4-11.3); NEUTROPHILS # (AUTO) 17.4 (2.1-6.9); NEUTROPHILS % 77.8 % (38.7-80.0); PLATELET COUNT 240 x10e3/uL (140-360); RED BLOOD COUNT 3.47 x10e6/uL (3.6-5.1); RED CELL DISTRIBUTION WIDTH 14.6 % (11.7-14.4)
[2017-07-07 21:04] LABS: INR 1.32; PROTHROMBIN TIME 17.1 seconds (11.9-14.5)
[2017-07-07 21:05] LABS: PARTIAL THROMBOPLASTIN TIME 38.3 seconds (23.8-35.5)
[2017-07-07] MEDS ORDERED: HEPARIN SOD (PORCINE) 1000 UNIT/ML SDV IV ONE (21:15)
[2017-07-07] MEDS: HEPARIN 25,000 UNIT/D5W 250ML 250 ML IV PRN (21:38)
[2017-07-07] MEDS: METOPROLOL TARTRATE INJ 1 MG/ML VIAL IV SCH (23:17)
[2017-07-08] VITALS (89 sets, daily range): BP systolic 89–172; BP diastolic 46–123
[2017-07-08] MEDS: ALBUTEROL/IPRATROPIUM 3 ML NEB NEB SCH ×4 (02:00→18:50)
[2017-07-08] MEDS: MEROPENEM 500 MG VIAL IV SCH (03:37)
[2017-07-08] MEDS: FUROSEMIDE INJ 10 MG/ML 2 ML VIAL IV SCH ×3 (05:43→20:48)
[2017-07-08] MEDS: INSULIN REGULAR, HUMAN 100 UNIT/1 ML 3ML VIAL SQ SCH ×3 (05:44→17:39)
[2017-07-08] MEDS: VANCOMYCIN 250MG/5ML ORAL SOLN PO SCH ×3 (05:44→17:39)
[2017-07-08] MEDS: METOPROLOL TARTRATE INJ 1 MG/ML VIAL IV SCH ×3 (05:44→17:39)
[2017-07-08 06:00] LABS: BASOPHILS # (AUTO) 0.1 (0.0-0.1); BASOPHILS % 0.4 % (0.0-1.0); HEMATOCRIT 29.3 % (34.2-44.1); HEMOGLOBIN 9.9 g/dL (12.0-16.0); LYMPHOCYTES # (AUTO) 3.1 (1.0-3.2); LYMPHOCYTES % 13.1 % (18.0-39.1); MEAN CORPUSCULAR HEMOGLOBIN 30.7 pg (28-32); MEAN CORPUSCULAR HGB CONC 33.8 g/dL (31-35); MEAN CORPUSCULAR VOLUME 90.7 fL (81-99); MONOCYTES # (AUTO) 2.3 (0.2-0.8); MONOCYTES % 9.6 % (4.4-11.3); NEUTROPHILS # (AUTO) 16.8 (2.1-6.9); NEUTROPHILS % 71.3 % (38.7-80.0); PLATELET COUNT 236 x10e3/uL (140-360); RED BLOOD COUNT 3.23 x10e6/uL (3.6-5.1); RED CELL DISTRIBUTION WIDTH 14.6 % (11.7-14.4)
--- NOTE | 2017-07-08 06:09 | Diagnostic Imaging Report ---
EXAM: CHEST SINGLE (PORTABLE), AP 1 view DATE: 07/08/2017 5:00 AM Time stamp on exam: 0455 hours INDICATION: Respiratory failure COMPARISON: AP view of the chest July 07, 2017 at 1243 hours FINDINGS: LINES/TUBES: * Endotracheal tube terminates 2 cm above the nehemiah * Right approach PICC, stable position * Nasal/orogastric tube terminates in expected location of the body of the stomach LUNGS: Improved aeration of the lungs. PLEURA: No effusions or pneumothorax. HEART AND MEDIASTINUM: Normal size and contour. BONES AND SOFT TISSUES: No acute findings. IMPRESSION: Interval improved aeration of the lungs. Signed by: Dr. Rafia Redman M.D. on 07/08/2017 6:05 AM
[2017-07-08 06:35] LABS: ANION GAP 15.8 mmol/L (8-16); CALCIUM 8.1 mg/dL (8.4-10.2); CREATININE, SERUM 1.19 mg/dL (0.57-1.11)
[2017-07-08 06:37] LABS: POTASSIUM 2.8 mmol/L (3.5-5.1)
[2017-07-08] MEDS: POTASSIUM CHLORIDE 20MEQ/100ML 200 ML IV PRN (07:01)
[2017-07-08] MEDS: METRONIDAZOLE 500MG/NS 100ML 100 ML IV SCH ×2 (09:21→17:37)
[2017-07-08] MEDS: FAMOTIDINE 20 MG/2 ML VIAL IV SCH ×2 (09:21→20:49)
[2017-07-08] MEDS ORDERED: POTASSIUM CHLORIDE 20MEQ/15ML UDC NG STA (09:27)
[2017-07-08] MEDS ORDERED: MAGNESIUM SULFATE 2GM/50ML 50 ML IV ONE (09:30)
[2017-07-08 10:10] LABS: LYMPHOCYTES % (MANUAL) 11 % (19-48); MONOCYTES % (MANUAL) 7 % (3.4-9.0); NEUTROPHILS % (MANUAL) 82 % (40-74)
--- NOTE | 2017-07-08 10:11 | Progress Note ---
DATE: July 08, 2017 TIME: 5:33 a.m. OVERNIGHT: Patient had a new-onset AFib. REVIEW OF SYSTEMS: Unobtainable. PHYSICAL EXAM VITAL SIGNS: Reviewed. GENERAL: A tired-appearing woman resting in bed. HEENT: She has ET tube in place. Patient is intubated. Has NG tube in place. CARDIOVASCULAR: Normal S1/S2. LUNGS: Mildly coarse breath sounds. ABDOMEN: Soft, nontender, nondistended. : She has Daly in place. EXTREMITIES: No edema. SKIN: Dry. PSYCHIATRIC: Unable to assess neurologically. Not interactive at this time. MUSCULOSKELETAL: Midline surgical scar on the chest wall. LABS: Reviewed. MEDICATIONS: Reviewed. ASSESSMENT AND PLAN: This is an 81-year-old woman with 1. Acute respiratory failure. 2. Clostridium difficile positive colitis. 3. Urinary tract infection, Citrobacter. 4. Pneumonia. 5. Acute kidney injury. 6. Metabolic encephalopathy. 7. Electrolyte derangement. 8. Normocytic anemia. 9. Acute kidney injury. 10. Dysphagia. 11. Sepsis. PLAN 1. Continue IV meropenem and oral vancomycin. 2. Continue amiodarone and beta-blockers. 3. Continue potassium replacement. 4. Continue Lasix 20 IV q.8. 5. Continue heparin. 6. Continue IV Flagyl. 7. Daughter not interested in tracheostomy at this time. 8. Continue supportive care in the ICU. CRITICAL CARE TIME: More than 35 minutes. Job#: [id number] CQ
[2017-07-08 10:13] LABS: ANISOCYTOSIS SLIG; HYPOCHROMASIA SLIGHT; PLATELET ESTIMATE ADEQUATE; PLATELET MORPHOLOGY COMMENT NORMAL; RBC MORPHOLOGY COMMENT NORMAL; TOXIC GRANULATION SLIGHT
[2017-07-08] MEDS ORDERED: POTASSIUM CHLORIDE 20MEQ/15ML UDC NG ONE (10:45)
--- NOTE | 2017-07-08 14:09 | Progress Note ---
DATE: July 08, 2017 PULMONARY MEDICINE PROGRESS NOTE SUBJECTIVE: Mrs. Feldman was seen and examined at bedside. She continues at this time to be on ventilator. Liters in 0.9, liters out 3.5. Patient with IV fluid at 40 mL per hour right now. Feeds at 30 mL per hour as tolerated, 30 mL every 4 hours of water. REVIEW OF SYSTEMS: No headaches, no bleeding. OBJECTIVE VITAL SIGNS: Afebrile. Vital signs noted per electronic record. GENERALLY: No acute distress, on ventilator, calm. HEENT: Normocephalic, atraumatic. NECK: Supple. Throat midline. LUNGS: Bilateral air entry, a few rhonchi. CARDIOVASCULAR: S1 and S2. No murmurs, rubs or gallops. ABDOMINAL: Soft, nontender. EXTREMITIES: No clubbing, no cyanosis. There is trace edema. INTEGUMENT: No rash. No purpura. LABS: Potassium 2.8, creatinine 1.2. White count 24, hematocrit 29, platelets 236. ABG showed 7.58/39/203 yesterday. Magnesium level 1.0. IMPRESSION AND PLAN 1. Complicating atrial fibrillation with rapid rate. 2. Acute respiratory failure, intubated. 3. Persistent repetitive apneas, driving source under investigation. 4. Hypokalemia. 5. Acute kidney failure, improving. 6. Clostridium difficile colitis, severe but improving. 7. Urinary tract infection, gram-negative rods. Continue current treatment at this time. Patient will get aggressive potassium repletion. Patient will remain on amiodarone drip at this time. Will follow up closely. Family was discussed with. Patient is having less apnea tendency today. She is alkalotic, which may be driving the apnea or may not be. We will offer them trial of extubation, noting that the patient may be [id number]. Therefore, it is also feasible to wait another day or two to see if the apneas get better given the patient may be a [id number] status. Will follow along closely. Job#: [id number] EV
[2017-07-08 15:29] LABS: ABG HCO3 33 mmol/L (23-28); ABG PCO2 42 mmHg (41-51); ABG PH 7.51 (7.31-7.41); ABG PO2 191 mmHg (80-105)
--- NOTE | 2017-07-08 16:26 | Consultation ---
DATE OF CONSULTATION: July 08, 2017 CARDIOLOGY CONSULTATION REQUESTING PHYSICIAN: Dr. Cesar Frost. REASON FOR CONSULTATION: Atrial fibrillation. HISTORY OF PRESENT ILLNESS: This is an 81-year-old woman with history of coronary artery disease status post 1-vessel CABG in 2010, bioprosthetic aortic valve replacement, hypertension and type 2 diabetes mellitus, who presented with altered mental status. The patient had been at [facility] recovering from recent colitis and urinary tract infection when the family noted she was more somnolent than baseline. The day of admission, the staff at [facility] found the patient unresponsive and tachypneic. She was transferred to [facility] for further care. On arrival she was found to have leukocytosis, hypokalemia and a urinary tract infection. She was intubated and admitted to the ICU for further care. REVIEW OF SYSTEMS: Unable to obtain secondary to intubation. PAST MEDICAL HISTORY 1. Coronary artery disease status post 1-vessel CABG in 2010. 2. Aortic stenosis status post bioprosthetic aortic valve replacement. 3. Diabetes mellitus. 4. Hypertension. PAST SURGICAL HISTORY 1. CABG. 2. Aortic valve replacement. 3. Hysterectomy. 4. Bladder suspension x2. ALLERGIES: PLEASE SEE EMR. MEDICATIONS: Please see medication list. SOCIAL HISTORY: Unable to obtain secondary to intubation. Per EMR, no tobacco, alcohol or drugs. FAMILY HISTORY: Noncontributory. PHYSICAL EXAMINATION VITAL SIGNS: Temperature 96.9 degrees, pulse 88, respiratory rate 17, blood pressure 153/67, oxygen saturation 100% on mechanical ventilation. GENERAL: Elderly woman, no acute distress. Intubated and sedated. HEENT: Normocephalic, atraumatic. NECK: Supple. No thyromegaly or cervical lymphadenopathy, no carotid bruits. LUNGS: Clear to auscultation bilaterally. No wheezes or crackles. CARDIOVASCULAR: Normal rate, regular rhythm. No murmur. Normal S1 and S2. ABDOMEN: Soft. EXTREMITIES: No edema. NEURO: Sedated. LABS: WBC 23.6, hemoglobin 9.9, hematocrit 29.3, platelets 236. Sodium 141, potassium 2.8, chloride 102, CO2 26, BUN 11, creatinine 1.19. CHEST X-RAY: Interval improved aeration of the lungs. Initial EKG demonstrated normal sinus rhythm with normal ECG. EKG last night demonstrated atrial fibrillation, rapid ventricular response, and extensive ST-T wave changes. TELEMETRY: Normal sinus rhythm. IMPRESSION 1. Atrial fibrillation with rapid ventricular response, now normal sinus rhythm. 2. Acute respiratory failure on mechanical ventilation. 3. Clostridium difficile colitis. 4. Citrobacter urinary tract infection. 5. Pneumonia. 6. Acute kidney injury. 7. Altered mental status. 8. Electrolyte abnormalities. 9. Anemia. 10. Coronary artery disease status post coronary artery bypass graft. 11. Bioprosthetic aortic valve replacement. 12. Diabetes mellitus. 13. Hypertension. RECOMMENDATIONS: The patient converted back to normal sinus rhythm overnight after initiation of amiodarone protocol as well as metoprolol. Heparin drip was started for CVA prophylaxis given pharmacologic conversion to normal sinus rhythm. Continue metoprolol for rate control. Replete electrolytes. Antibiotics per Infectious Disease. We will review the echocardiogram which was previously done. Thank you for this consult. We will continue to follow. Job#: [id number] EV
[2017-07-08] MEDS ORDERED: POTASSIUM CHL 40 MEQ in WATER STERILE 10ML VIAL 80 ML IV PRN (17:45)
[2017-07-09] VITALS (59 sets, daily range): BP systolic 108–166; BP diastolic 50–87
[2017-07-09] MEDS: METRONIDAZOLE 500MG/NS 100ML 100 ML IV SCH ×3 (00:47→16:30)
[2017-07-09] MEDS: METOPROLOL TARTRATE INJ 1 MG/ML VIAL IV SCH ×4 (00:47→18:16)
[2017-07-09] MEDS: VANCOMYCIN 250MG/5ML ORAL SOLN PO SCH ×4 (00:47→18:16)
[2017-07-09] MEDS: ALBUTEROL/IPRATROPIUM 3 ML NEB NEB SCH ×4 (02:40→18:45)
[2017-07-09] MEDS: INSULIN REGULAR, HUMAN 100 UNIT/1 ML 3ML VIAL SQ SCH ×4 (05:43→18:16)
[2017-07-09 06:05] LABS: BASOPHILS # (AUTO) 0.1 (0.0-0.1); BASOPHILS % 0.4 % (0.0-1.0); EOSINOPHILS # (AUTO) 0.1 (0.0-0.4); EOSINOPHILS % 0.6 % (0.0-6.0); HEMATOCRIT 28.8 % (34.2-44.1); HEMOGLOBIN 9.3 g/dL (12.0-16.0); LYMPHOCYTES # (AUTO) 3.6 (1.0-3.2); LYMPHOCYTES % 15.7 % (18.0-39.1); MEAN CORPUSCULAR HEMOGLOBIN 30.2 pg (28-32); MEAN CORPUSCULAR HGB CONC 32.3 g/dL (31-35); MEAN CORPUSCULAR VOLUME 93.5 fL (81-99); MONOCYTES % 8.9 % (4.4-11.3); NEUTROPHILS # (AUTO) 15.9 (2.1-6.9); NEUTROPHILS % 70.4 % (38.7-80.0); PLATELET COUNT 210 x10e3/uL (140-360); RED BLOOD COUNT 3.08 x10e6/uL (3.6-5.1); RED CELL DISTRIBUTION WIDTH 14.7 % (11.7-14.4)
[2017-07-09 06:28] LABS: ALBUMIN 2.2 g/dL (3.5-5.0); ALBUMIN/GLOBULIN RATIO 0.5 (0.8-2.0); ANION GAP 12.9 mmol/L (8-16); CALCIUM 7.9 mg/dL (8.4-10.2); CREATININE, SERUM 1.1 mg/dL (0.57-1.11); MAGNESIUM 1.4 MG/DL (1.3-2.1)
[2017-07-09 06:43] LABS: POTASSIUM 2.9 mmol/L (3.5-5.1)
--- NOTE | 2017-07-09 06:48 | Diagnostic Imaging Report ---
EXAM: CHEST SINGLE (PORTABLE), AP 1 view DATE: 07/09/2017 5:00 AM Time stamp on exam: 0511 hours INDICATION: Congestive heart failure COMPARISON: AP view of the chest July 08, 2017 FINDINGS: LINES/TUBES: Stable right approach PICC and nasal/orogastric tube. Interval removal of endotracheal tube. LUNGS: Low inspiration with vascular crowding and bibasilar atelectasis PLEURA: No effusions or pneumothorax. HEART AND MEDIASTINUM: Stable appearance given low inspiration BONES AND SOFT TISSUES: No acute findings. IMPRESSION: Interval removal of endotracheal tube, otherwise no significant interval change given low inspiratory effort. Signed by: Dr. Rafia Redman M.D. on 07/09/2017 6:45 AM
[2017-07-09] MEDS ORDERED: POTASSIUM CHLORIDE 20MEQ/100ML 300 ML IV ONE (08:00)
--- NOTE | 2017-07-09 08:03 | Progress Note ---
DATE: July 09, 2017 MEDICINE PROGRESS NOTE TIME OF SERVICE: 7:36 a.m. SUBJECTIVE: Overnight patient extubated. REVIEW OF SYSTEMS: Unobtainable. VITAL SIGNS: Have been reviewed. PHYSICAL EXAMINATION GENERAL APPEARANCE: A tired-appearing woman resting in bed. HEENT: Anicteric. NG tube in place. CARDIOVASCULAR: Normal S1/S2. Irregular heart rate and rhythm. LUNGS: Moderate breath sounds. ABDOMEN: Soft, nontender, nondistended. : She has Daly. EXTREMITIES: No edema. SKIN: Dry. PSYCHIATRIC: Flat affect. NEUROLOGICALLY: Awake but not interactive. LABS: Reviewed. MEDICATIONS: Reviewed. ASSESSMENT AND PLAN: An 81-year-old woman. 1. Acute respiratory failure. 2. Clostridium difficile positive diarrhea. 3. Urinary tract infection with citrobacter. 4. Pneumonia. 5. Acute kidney injury. 6. Metabolic encephalopathy. 7. Electrolyte derangement. 8. Dysphagia. 9. Sepsis. PLAN 1. Get swallow eval. If one is passed, can remove NG tube. 2. Switch to Glucerna. 3. Continue amiodarone and heparin drip. 4. Lasix IV. 5. Probiotics. 6. Leukocytosis persistent at 22,000. 7. Replace potassium in setting of hypokalemia. 8. Continue oral vancomycin and IV Flagyl. 9. Critical care time more than 35 minutes. Job#: [id number] EV
[2017-07-09] MEDS: FUROSEMIDE INJ 10 MG/ML 2 ML VIAL IV SCH ×2 (08:22→20:46)
[2017-07-09] MEDS: LACTOBACILLUS ACIDOPHILUS CAPSULE PO SCH (08:22)
[2017-07-09] MEDS: FAMOTIDINE 20 MG/2 ML VIAL IV SCH ×2 (08:22→20:46)
[2017-07-09 10:35] LABS: BAND NEUTROPHILS % (MANUAL) 2 %; LYMPHOCYTES % (MANUAL) 11 % (19-48); MONOCYTES % (MANUAL) 6 % (3.4-9.0); NEUTROPHILS % (MANUAL) 81 % (40-74); PLATELET ESTIMATE ADEQUATE; PLATELET MORPHOLOGY COMMENT NORMAL; RBC MORPHOLOGY COMMENT NORMAL
[2017-07-09] MEDS: AMIODARONE HCL 200 MG TAB PO SCH ×2 (13:18→18:14)
--- NOTE | 2017-07-09 13:55 | Progress Note ---
DATE: July 09, 2017 PULMONARY/CRITICAL CARE PROGRESS NOTE I am covering for Dr. Prince today. SUBJECTIVE: Patient was seen by Infectious Disease yesterday and continued on high-dose oral vancomycin for Clostridium difficile. Her other antibiotics were held. She completed the loading dose for her amiodarone and will now take it orally. She was extubated yesterday and is not having any respiratory problems. OBJECTIVE VITAL SIGNS: The patient is afebrile. The vital signs are stable. HEENT: Examination shows no facial swelling or erythema. She has a nebulizer mask on. CARDIAC: Exam reveals a regular rate and rhythm with a normal S1 and S2. There are no murmurs or rubs. LUNGS: Auscultation reveals rhonchorous breath sounds at the bases. ABDOMEN: Soft and nontender. There is no rebound or guarding. EXTREMITIES: Patient has venous compression devices in place. LABORATORY DATA: White blood cell count is 22.6, and the potassium is 2.9. IMPRESSION 1. Severe Clostridium difficile colitis with severe sepsis. 2. Pneumonia. 3. Urinary tract infection. 4. Atrial fibrillation with acute systolic congestive heart failure. PLAN 1. Will continue the current antimicrobial regimen. 2. Repeat chest x-ray in a.m. 3. Monitor mental status. 4. Replace potassium. 5. Repeat CBC tomorrow. Job#: [id number] EV
[2017-07-09] MEDS: HEPARIN 25,000 UNIT/D5W 250ML 250 ML IV PRN (15:00)
--- NOTE | 2017-07-09 15:50 | Progress Note ---
DATE: July 09, 2017 CARDIOLOGY PROGRESS NOTE SUBJECTIVE: Patient denies chest pain or shortness of breath. She was successfully extubated yesterday. OBJECTIVE VITAL SIGNS: Temperature 97.7 degrees, pulse 79, respiratory rate 16, blood pressure 116/59, oxygen saturation 100% on 3 liters nasal cannula. GENERAL: Elderly woman in no acute distress. LUNGS: Clear to auscultation bilaterally. No wheezes or crackles. CARDIOVASCULAR: Normal rate, regular rhythm. No murmur. Normal S1 and S2. ABDOMEN: Soft. EXTREMITIES: No edema. CARDIAC MEDICATIONS 1. Amiodarone drip. 2. Metoprolol tartrate 5 mg IV q.6 h. 3. Furosemide 20 mg IV q.12 h. LABS: WBC 22.6, hemoglobin 9.3, hematocrit 28.8, platelets 210. Sodium 139, potassium 2.9, chloride 99, CO2 30, BUN 14, creatinine 1.1. Chest x-ray: Interval removal of endotracheal tube. Otherwise no significant interval change given low inspiratory effort. Telemetry: Normal sinus rhythm. IMPRESSION 1. Atrial fibrillation with rapid ventricular response, now normal sinus rhythm. 2. Acute respiratory failure, now extubated. 3. Clostridium difficile colitis. 4. Citrobacter urinary tract infection. 5. Pneumonia. 6. Acute kidney injury, improved. 7. Altered mental status. 8. Electrolyte abnormalities. 9. Anemia. 10. Coronary artery disease status post coronary artery bypass graft. 11. Bioprosthetic aortic valve replacement. 12. Diabetes mellitus. 13. Hypertension. RECOMMENDATIONS: Start amiodarone p.o. 200 mg b.i.d. Stop amiodarone drip. Continue heparin drip for CVA prophylaxis given her pharmacologic conversion to normal sinus rhythm. If she passes her swallow evaluation, we can transition metoprolol from intravenous to p.o. as well. Replete electrolytes. Antibiotics per Infectious Disease. Thank you for this consult. We will continue to follow. Job#: [id number] EV
[2017-07-10] VITALS (24 sets, daily range): BP systolic 108–170; BP diastolic 51–89
[2017-07-10] MEDS: METRONIDAZOLE 500MG/NS 100ML 100 ML IV SCH ×3 (00:03→16:18)
[2017-07-10] MEDS: METOPROLOL TARTRATE INJ 1 MG/ML VIAL IV SCH ×4 (00:03→18:35)
[2017-07-10] MEDS: VANCOMYCIN 250MG/5ML ORAL SOLN PO SCH ×4 (00:03→18:35)
[2017-07-10] MEDS: INSULIN REGULAR, HUMAN 100 UNIT/1 ML 3ML VIAL SQ SCH ×4 (00:08→18:36)
[2017-07-10] MEDS: ALBUTEROL/IPRATROPIUM 3 ML NEB NEB SCH ×4 (02:10→19:26)
[2017-07-10 06:02] LABS: BASOPHILS # (AUTO) 0.1 (0.0-0.1); BASOPHILS % 0.6 % (0.0-1.0); EOSINOPHILS # (AUTO) 0.2 (0.0-0.4); EOSINOPHILS % 1.3 % (0.0-6.0); HEMATOCRIT 32.3 % (34.2-44.1); HEMOGLOBIN 10.3 g/dL (12.0-16.0); LYMPHOCYTES # (AUTO) 3.2 (1.0-3.2); LYMPHOCYTES % 16.7 % (18.0-39.1); MEAN CORPUSCULAR HEMOGLOBIN 30.4 pg (28-32); MEAN CORPUSCULAR HGB CONC 31.9 g/dL (31-35); MEAN CORPUSCULAR VOLUME 95.3 fL (81-99); MONOCYTES # (AUTO) 1.5 (0.2-0.8); MONOCYTES % 7.7 % (4.4-11.3); NEUTROPHILS # (AUTO) 13.1 (2.1-6.9); PLATELET COUNT 208 x10e3/uL (140-360); RED BLOOD COUNT 3.39 x10e6/uL (3.6-5.1); RED CELL DISTRIBUTION WIDTH 15.1 % (11.7-14.4)
[2017-07-10 06:21] LABS: MAGNESIUM 1.5 MG/DL (1.3-2.1); PHOSPHORUS 3.3 MG/DL (2.3-4.7)
[2017-07-10 06:27] LABS: ALBUMIN 2.4 g/dL (3.5-5.0); ALBUMIN/GLOBULIN RATIO 0.5 (0.8-2.0); ANION GAP 12.6 mmol/L (8-16); CALCIUM 8.7 mg/dL (8.4-10.2); CREATININE, SERUM 1.12 mg/dL (0.57-1.11); POTASSIUM 4.6 mmol/L (3.5-5.1)
--- NOTE | 2017-07-10 06:30 | Diagnostic Imaging Report ---
EXAM: CHEST SINGLE (PORTABLE), AP 1 view DATE: 07/10/2017 5:00 AM Time stamp on exam: 0600 hours INDICATION: Shortness of breath COMPARISON: AP view of the chest July 09, 2017 FINDINGS: LINES/TUBES: Stable right approach PICC and nasal/orogastric tube LUNGS: Low inspiration with vascular crowding and bibasilar atelectasis PLEURA: Trace bilateral pleural effusions HEART AND MEDIASTINUM: Stable appearance BONES AND SOFT TISSUES: No acute findings. IMPRESSION: Trace bilateral pleural effusions, otherwise no significant interval change. Signed by: Dr. Rafia Redman M.D. on 07/10/2017 6:27 AM
[2017-07-10] MEDS: FUROSEMIDE INJ 10 MG/ML 2 ML VIAL IV SCH ×2 (08:31→21:49)
[2017-07-10] MEDS: LACTOBACILLUS ACIDOPHILUS CAPSULE PO SCH (08:32)
[2017-07-10] MEDS: AMIODARONE HCL 200 MG TAB PO SCH ×2 (08:32→16:18)
[2017-07-10] MEDS: FAMOTIDINE 20 MG/2 ML VIAL IV SCH ×2 (08:32→21:49)
[2017-07-10] MEDS: INSULIN DETEMIR 100 UNIT/ML PEN SQ SCH (09:58)
--- NOTE | 2017-07-10 10:54 | Progress Note ---
DATE: July 10, 2017 MEDICINE PROGRESS NOTE TIME OF SERVICE: 4:35 a.m. SUBJECTIVE: Overnight 1 episode of diarrhea. REVIEW OF SYSTEMS: Unobtainable. VITAL SIGNS: Reviewed. PHYSICAL EXAMINATION GENERAL APPEARANCE: A tired-appearing woman resting in bed. HEENT: Anicteric. NG tube in place. CARDIOVASCULAR: Normal S1/S2. Irregular heart rate. LUNGS: Moderate breath sounds. ABDOMEN: Soft. : Daly. EXTREMITIES: No edema. SKIN: Dry. PSYCHIATRIC: Flat affect. NEUROLOGICALLY: Awake but not interactive. LABS: Reviewed. MEDICATIONS: Reviewed. ASSESSMENT: An 81-year-old woman. 1. Now acute respiratory failure. 2. Clostridium difficile positive diarrhea. 3. Urinary tract infection with citrobacter. 4. Pneumonia. 5. Acute kidney injury. 6. Metabolic encephalopathy. 7. Electrolyte derangement. 8. Dysphagia. 9. Sepsis. PLAN 1. Patient did not do well with a 3-ounce swallow eval yesterday. 2. Off of amiodarone drip, now on heparin drip only. 3. Probiotics. 4. Follow up labs this morning. 5. Glucose still uncontrolled. Will titrate medication. Will start Levemir 5 units daily. Will also obtain electrolytes. 6. Chest x-ray yesterday was reviewed. 7. Critical care time more than 35 minutes. Job#: [id number] JOHN
[2017-07-10 11:38] LABS: BAND NEUTROPHILS % (MANUAL) 3 %; LYMPHOCYTES % (MANUAL) 20 % (19-48); MONOCYTES % (MANUAL) 2 % (3.4-9.0); NEUTROPHILS % (MANUAL) 75 % (40-74); PLATELET ESTIMATE ADEQUATE; PLATELET MORPHOLOGY COMMENT NORMAL; RBC MORPHOLOGY COMMENT NORMAL
[2017-07-10] MEDS ORDERED: MAGNESIUM SULFATE 2GM/50ML 50 ML IV ONE (12:30)
--- NOTE | 2017-07-10 16:01 | Progress Note ---
DATE: July 10, 2017 PULMONARY/CRITICAL CARE PROGRESS NOTE I am covering for Dr. Prince today. SUBJECTIVE: The patient's saturation is good. She does not have cough or respiratory problems today. She has no diarrhea. She is receiving enteral feedings. OBJECTIVE: The patient is somnolent but arousable. She is not in any acute distress. She has a nasogastric tube in place. She is on a nasal cannula. She has a regular rate and rhythm with a normal S1 and S2. She has decreased breath sounds at the bases. There is no abdominal tenderness. She has no leg edema or calf tenderness. LABORATORY DATA: White blood cell count is decreased to 18.5. IMPRESSION 1. Clostridium difficile colitis with severe sepsis. 2. Resolving pneumonia. 3. Resolving respiratory failure. 4. Atrial fibrillation. 5. Urinary tract infection. PLAN 1. Continue the current antibiotic regimen. 2. Repeat CBC in the morning. 3. Continue enteral feedings. 4. Oxygen. 5. Out of bed as tolerated. Job#: [id number] EV
[2017-07-10] MEDS: BALSAM PERU/CASTOR OIL 60 GM OINT...G. TP PRN (18:38)
[2017-07-11] VITALS (51 sets, daily range): BP systolic 85–157; BP diastolic 45–85
[2017-07-11] MEDS: VANCOMYCIN 250MG/5ML ORAL SOLN PO SCH ×4 (00:36→18:11)
[2017-07-11] MEDS: METRONIDAZOLE 500MG/NS 100ML 100 ML IV SCH ×3 (00:36→16:00)
[2017-07-11] MEDS: INSULIN REGULAR, HUMAN 100 UNIT/1 ML 3ML VIAL SQ SCH ×4 (00:37→18:00)
[2017-07-11] MEDS: METOPROLOL TARTRATE INJ 1 MG/ML VIAL IV SCH ×4 (00:59→18:11)
[2017-07-11] MEDS: ALBUTEROL/IPRATROPIUM 3 ML NEB NEB SCH ×4 (01:10→19:17)
--- NOTE | 2017-07-11 04:42 | Progress Note ---
DATE: July 10, 2017 SUBJECTIVE: The patient is awake, however, she responds yes to most questions. OBJECTIVE: VITAL SIGNS: Temperature 98.1 degrees, pulse 87, respiratory rate 18, blood pressure 147/80, oxygen saturation 100% on 2 L nasal cannula. GENERAL: Elderly woman. Frail. No acute distress. LUNGS: Clear to auscultation bilaterally. No wheezes or crackles. CARDIOVASCULAR: Normal rate. Regular rhythm. No murmur. Normal S1, S2. ABDOMEN: Soft. EXTREMITIES: No edema. CARDIAC MEDICATIONS 1. Amiodarone 200 mg p.o. b.i.d. 2. Furosemide 20 mg IV q.12 h. 3. Metoprolol tartrate 5 mg IV q.6 h. LABS: WBC 18.97, hemoglobin 10.3, hematocrit 32.3, platelets 208,000. Sodium 135, potassium 4.6, chloride 97, CO2 30, BUN 24, creatinine 1.12. Telemetry: Normal sinus rhythm. IMPRESSION 1. Atrial fibrillation with rapid ventricular rate, now in normal sinus rhythm. 2. Acute respiratory failure, now extubated. 3. Clostridium colitis. 4. Citrobacter urinary tract infection. 5. Pneumonia. 6. Acute kidney injury, improved. 7. Altered mental status. 8. Electrolyte abnormalities. 9. Anemia. 10. Coronary artery disease, status post coronary artery bypass graft. 11. Bioprosthetic aortic valve replacement. 12. Diabetes mellitus. 13. Hypertension. RECOMMENDATIONS: Continue current cardiac medications including heparin for CVA prophylaxis. Transition intravenous metoprolol to p.o. Replete magnesium. We will check a lipid panel. Given her frailty, the patient is not a candidate for any invasive cardiac evaluation. Continue medical management including beta sanjuana. We will check a fasting lipid panel. Thank you for this consult. We will continue to follow. Job#: [id number]
[2017-07-11 07:17] LABS: BASOPHILS # (AUTO) 0.1 (0.0-0.1); BASOPHILS % 0.7 % (0.0-1.0); EOSINOPHILS # (AUTO) 0.2 (0.0-0.4); EOSINOPHILS % 0.8 % (0.0-6.0); HEMATOCRIT 29.8 % (34.2-44.1); HEMOGLOBIN 9.4 g/dL (12.0-16.0); LYMPHOCYTES # (AUTO) 3.8 (1.0-3.2); MEAN CORPUSCULAR HEMOGLOBIN 30.5 pg (28-32); MEAN CORPUSCULAR HGB CONC 31.5 g/dL (31-35); MEAN CORPUSCULAR VOLUME 96.8 fL (81-99); MONOCYTES # (AUTO) 1.3 (0.2-0.8); MONOCYTES % 6.4 % (4.4-11.3); NEUTROPHILS # (AUTO) 13.8 (2.1-6.9); NEUTROPHILS % 69.5 % (38.7-80.0); PLATELET COUNT 227 x10e3/uL (140-360); RED BLOOD COUNT 3.08 x10e6/uL (3.6-5.1); RED CELL DISTRIBUTION WIDTH 15.4 % (11.7-14.4)
[2017-07-11 07:36] LABS: INR 1.09; PROTHROMBIN TIME 14.7 seconds (11.9-14.5)
[2017-07-11 07:53] LABS: ALBUMIN 2.3 g/dL (3.5-5.0); ALBUMIN/GLOBULIN RATIO 0.5 (0.8-2.0); ANION GAP 11.8 mmol/L (8-16); CALCIUM 8.4 mg/dL (8.4-10.2); CREATININE, SERUM 1.23 mg/dL (0.57-1.11); MAGNESIUM 1.8 MG/DL (1.3-2.1); POTASSIUM 3.8 mmol/L (3.5-5.1)
[2017-07-11] MEDS: FAMOTIDINE 20 MG/2 ML VIAL IV SCH (09:00)
[2017-07-11] MEDS: FUROSEMIDE INJ 10 MG/ML 2 ML VIAL IV SCH ×2 (09:00→21:47)
[2017-07-11] MEDS: LACTOBACILLUS ACIDOPHILUS CAPSULE PO SCH (09:00)
[2017-07-11] MEDS: INSULIN DETEMIR 100 UNIT/ML PEN SQ SCH (09:00)
[2017-07-11] MEDS: AMIODARONE HCL 200 MG TAB PO SCH ×2 (10:18→16:52)
[2017-07-11 11:36] LABS: BAND NEUTROPHILS % (MANUAL) 5 %; LYMPHOCYTES % (MANUAL) 13 % (19-48); MONOCYTES % (MANUAL) 1 % (3.4-9.0); NEUTROPHILS % (MANUAL) 81 % (40-74)
[2017-07-11 11:37] LABS: PLATELET ESTIMATE ADEQUATE; PLATELET MORPHOLOGY COMMENT NORMAL; RBC MORPHOLOGY COMMENT NORMAL
[2017-07-11] MEDS ORDERED: SODIUM CHLORIDE 0.9% 250ML 250 ML ONE (12:03)
--- NOTE | 2017-07-11 14:19 | Progress Note ---
DATE: July 11, 2017 CARDIOLOGY PROGRESS NOTE SUBJECTIVE: The patient is less awake today. Will open eyes to stimulus, but does not otherwise respond. OBJECTIVE VITAL SIGNS: Temperature 97.4 degrees, pulse 56, respiratory rate 16, blood pressure 115/61. Oxygen saturation 100% on 2 liters nasal cannula. GENERAL: Elderly woman. Frail. No acute distress. LUNGS: Clear to auscultation bilaterally. No wheezes or crackles. CARDIOVASCULAR: Normal rate. Regular rhythm. No murmur. Normal S1, S2. ABDOMEN: Soft and nontender. EXTREMITIES: No edema. CARDIAC MEDICATIONS 1. Amiodarone 200 mg p.o. b.i.d. 2. Furosemide 20 mg IV q.12 h. 3. Metoprolol tartrate 5 mg IV q.6 h. LABS: WBC 19.8, hemoglobin 9.4, hematocrit 29.8, platelets 227,000, sodium 133, potassium 3.8, chloride 93, CO2 of 32, BUN 31, creatinine 1.23. TELEMETRY: Normal sinus rhythm. IMPRESSION 1. Atrial fibrillation with rapid ventricular response, now in normal sinus rhythm. 2. Acute respiratory failure, now extubated. 3. Clostridium difficile colitis. 4. Citrobacter urinary tract infection. 5. Pneumonia. 6. Acute kidney injury, improved. 7. Altered mental status. 8. Electrolyte abnormalities. 9. Anemia. 10. Coronary artery disease, status post coronary artery bypass graft. 11. Bioprosthetic aortic valve replacement. 12. Diabetes mellitus. 13. Hypertension. RECOMMENDATIONS: Continue current cardiac medications including heparin for CVA prophylaxis. Complete electrolytes. Continue metoprolol. Continue medical management. We will back off on diuresis due to rising creatinine. Thank you for this consult. We will continue to follow. Job#: [id number]
[2017-07-12] VITALS (48 sets, daily range): BP systolic 104–143; BP diastolic 50–81
[2017-07-12] MEDS: ALBUTEROL/IPRATROPIUM 3 ML NEB NEB SCH ×4 (01:01→19:20)
[2017-07-12] MEDS: INSULIN REGULAR, HUMAN 100 UNIT/1 ML 3ML VIAL SQ SCH ×4 (01:19→18:00)
[2017-07-12] MEDS: VANCOMYCIN 250MG/5ML ORAL SOLN PO SCH ×4 (01:20→18:00)
[2017-07-12] MEDS: METRONIDAZOLE 500MG/NS 100ML 100 ML IV SCH ×3 (01:20→16:00)
[2017-07-12] MEDS: METOPROLOL TARTRATE INJ 1 MG/ML VIAL IV SCH ×4 (01:21→18:00)
[2017-07-12] MEDS: MODAFINIL 100 MG TAB PO SCH (05:36)
[2017-07-12 06:14] LABS: BASOPHILS # (AUTO) 0.1 (0.0-0.1); BASOPHILS % 0.4 % (0.0-1.0); EOSINOPHILS # (AUTO) 0.2 (0.0-0.4); EOSINOPHILS % 0.7 % (0.0-6.0); HEMATOCRIT 28.5 % (34.2-44.1); HEMOGLOBIN 8.9 g/dL (12.0-16.0); LYMPHOCYTES # (AUTO) 3.3 (1.0-3.2); LYMPHOCYTES % 15.8 % (18.0-39.1); MEAN CORPUSCULAR HEMOGLOBIN 30.3 pg (28-32); MEAN CORPUSCULAR HGB CONC 31.2 g/dL (31-35); MEAN CORPUSCULAR VOLUME 96.9 fL (81-99); MONOCYTES # (AUTO) 1.2 (0.2-0.8); MONOCYTES % 5.9 % (4.4-11.3); NEUTROPHILS # (AUTO) 15.6 (2.1-6.9); NEUTROPHILS % 73.6 % (38.7-80.0); PLATELET COUNT 217 x10e3/uL (140-360); RED BLOOD COUNT 2.94 x10e6/uL (3.6-5.1); RED CELL DISTRIBUTION WIDTH 15.5 % (11.7-14.4)
[2017-07-12 06:33] LABS: ALBUMIN 2.2 g/dL (3.5-5.0); ALBUMIN/GLOBULIN RATIO 0.6 (0.8-2.0); ANION GAP 12.8 mmol/L (8-16); CALCIUM 8.7 mg/dL (8.4-10.2); CREATININE, SERUM 1.15 mg/dL (0.57-1.11); MAGNESIUM 1.6 MG/DL (1.3-2.1); POTASSIUM 3.8 mmol/L (3.5-5.1)
[2017-07-12 06:33] LABS: INR 0.98; PROTHROMBIN TIME 13.5 seconds (11.9-14.5)
--- NOTE | 2017-07-12 06:37 | Diagnostic Imaging Report ---
EXAM: CHEST SINGLE (PORTABLE), AP 1 view DATE: 07/12/2017 6:00 AM INDICATION: Pneumonia COMPARISON: 07/10/2017 FINDINGS: LINES/TUBES: Stable right approach PICC and nasal/orogastric tube LUNGS: Lung apices are partially excluded. Low volumes with vascular crowding and bibasilar atelectasis PLEURA: Trace bilateral pleural effusions HEART AND MEDIASTINUM: Stable appearance IMPRESSION: No significant interval change. Signed by: Dr Faviola Soto MD on 07/12/2017 6:33 AM
[2017-07-12 07:57] LABS: ANISOCYTOSIS SLIGHT; EOSINOPHILS % (MANUAL) 1 % (0-7); HYPOCHROMASIA MODERATE; LYMPHOCYTES % (MANUAL) 9 % (19-48); MONOCYTES % (MANUAL) 5 % (3.4-9.0); NEUTROPHILS % (MANUAL) 82 % (40-74)
[2017-07-12 07:58] LABS: PLATELET ESTIMATE ADEQUATE; PLATELET MORPHOLOGY COMMENT NORMAL; RBC MORPHOLOGY COMMENT NORMAL
[2017-07-12] MEDS: AMIODARONE HCL 200 MG TAB PO SCH ×2 (09:00→16:51)
[2017-07-12] MEDS: INSULIN DETEMIR 100 UNIT/ML PEN SQ SCH (09:00)
[2017-07-12] MEDS: LACTOBACILLUS ACIDOPHILUS CAPSULE PO SCH (09:00)
[2017-07-12] MEDS: MEROPENEM 500 MG VIAL IV SCH ×2 (10:41→21:54)
--- NOTE | 2017-07-12 11:45 | Progress Note ---
DATE: Ms. Feldman seems a bit more alert today. Family is at the bedside. There are no problems. She is still weak. PHYSICAL EXAMINATION GENERAL: She is alert and comfortable but weak. VITALS: Stable, afebrile. HEENT: She is noted to be anicteric. NECK: Supple. CHEST: A few crackles at the bases. COR: S1 and S2. ABDOMEN: Soft. Diffuse discomfort. EXTREMITIES: No edema. LABORATORY DATA: Reviewed. Her white count is 21.1, hemoglobin 8.9. Sodium 132, potassium 3.8, creatinine 1.15. Chest x-ray: No environmental change analyst the last couple of days. Trace bilateral effusions. IMPRESSION 1. Sepsis. Seems clinically better. Her Clostridium difficile is better. I am concerned about the leukocytosis. She is continued on oral vancomycin and metronidazole. She is extremely weak. Concerned that she may have underlying also pneumonia and maybe a urinary tract infection. Will restart meropenem. Continue with oral vancomycin and metronidazole. Will check CBC. Will check Chem panel. 2. Chronic kidney disease. 3. Will follow with you. Job#: [id number]
--- NOTE | 2017-07-12 16:23 | Progress Note ---
DATE: July 12, 2017 CARDIOLOGY PROGRESS NOTE SUBJECTIVE: The patient is more awake today but does not really respond to questions. OBJECTIVE VITAL SIGNS: Temperature 99.1 degrees, pulse 86, respiratory rate 16, blood pressure 140/66. Oxygen saturation is 100% on 2 L nasal cannula. GENERAL: Elderly woman. Frail. No acute distress. LUNGS: Clear to auscultation bilaterally. No wheezes or crackles. CARDIOVASCULAR: Normal rate. Regular rhythm. No murmur. Normal S1, S2. ABDOMEN: Soft and nontender. EXTREMITIES: No edema. CARDIAC MEDICATIONS 1. Metoprolol tartrate 5 mg IV q.6 h.. 2. Furosemide 20 mg IV q.12 h. 3. Amiodarone 200 mg p.o. b.i.d. LABS: WBC 21.12, hemoglobin 8.9, hematocrit 28.5, platelets 217. Sodium 132, potassium 3.8, chloride 91, CO2 of 32, BUN 32, creatinine 1.15. TELEMETRY: Normal sinus rhythm. IMPRESSION 1. Atrial fibrillation with rapid ventricular response, now in normal sinus rhythm. 2. Acute respiratory failure, now extubated. 3. Clostridium difficile colitis. 4. Citrobacter urinary tract infection. 5. Pneumonia. 6. Acute kidney injury. 7. Altered mental status. 8. Electrolyte abnormalities. 9. Anemia. 10. Coronary artery disease, status post coronary artery bypass graft. 11. Bioprosthetic aortic valve replacement. 12. Diabetes mellitus. 13. Hypertension. RECOMMENDATIONS: Continue current cardiac medications including heparin for CVA prophylaxis. Replete electrolytes. We will change metoprolol to p.o. Continue amiodarone for rhythm control. The patient can transfer to the floor from a cardiac standpoint on telemetry. Thank you for this consult. We will continue to follow. Job#: [id number]
[2017-07-12] MEDS ORDERED: MEROPENEM 500MG 500 MG in SODIUM CHLORIDE 0.9% 50ML 50 ML IV SCH (17:00)
[2017-07-12] MEDS: HEPARIN 25,000 UNIT/D5W 250ML 250 ML IV PRN (22:03)
--- NOTE | 2017-07-12 22:08 | Progress Note ---
DATE: July 12, 2017 PULMONARY MEDICINE PROGRESS NOTE SUBJECTIVE: Mrs. Feldman was seen and examined at bedside. She continues to have slow progress. She remains very weak. Daly is in place. Chest x-ray showing trace effusions and bilateral atelectasis. Tube feeds ongoing at 30 mL per hour via feeding tube, which is still in place. She is on heparin IV, continuous. On 100% oxygen saturation 2 L per minute, nasal cannula oxygen. She is having bowel movements. REVIEW OF SYSTEMS: No chest pain, no bleeding. OBJECTIVE VITAL SIGNS: Afebrile. Vital signs noted per electronic record. GENERALLY: In no acute distress, but looks very weak in bed. HEENT: Normocephalic, atraumatic. NECK: Supple. Throat midline. LUNGS: Bilateral air entry, a few rhonchi. Limited breath sounds at the base. CARDIOVASCULAR: S1/S2. No murmurs, rubs or gallops. ABDOMINAL: Soft, nontender. EXTREMITIES: No clubbing, no cyanosis. There is only trace edema. INTEGUMENT: No rash. No purpura. LABS: White count 21, hematocrit 28, platelets 270,000. Creatinine 1.15, bicarbonate 32. IMPRESSIONS AND PLAN 1. Acute respiratory failure, now extubated. 2. Severe urinary tract infection, citrobacter. 3. Clostridium difficile colitis. 4. Fluid overload with pneumonia. 5. Atrial fibrillation, now controlled rate. Follow up serial white count. Follow up her energy levels. Patient still with 100% dependence on us for her medical care and for mobilization. We hope to have therapy to help strengthen the patient. They will continue to work on the patient and do activities that she tolerates. Patient with very mild overload appearance on x-ray and we hope to have the patient auto-diurese. If note, will add diuretics the next few days. Follow up closely. She needs a lot of therapy still. Continue heparin per other physician for the atrial fibrillation. Job#: [id number]
[2017-07-13] VITALS (29 sets, daily range): BP systolic 107–145; BP diastolic 55–73
[2017-07-13] MEDS ORDERED: SODIUM CHLORIDE 0.9% 250ML 250 ML ONE (00:03)
[2017-07-13] MEDS: VANCOMYCIN 250MG/5ML ORAL SOLN PO SCH ×4 (00:30→17:54)
[2017-07-13] MEDS: METOPROLOL TARTRATE INJ 1 MG/ML VIAL IV SCH ×2 (00:30→05:31)
[2017-07-13] MEDS: METRONIDAZOLE 500MG/NS 100ML 100 ML IV SCH ×3 (00:30→17:54)
[2017-07-13] MEDS: INSULIN REGULAR, HUMAN 100 UNIT/1 ML 3ML VIAL SQ SCH ×4 (00:36→18:00)
[2017-07-13] MEDS: ALBUTEROL/IPRATROPIUM 3 ML NEB NEB SCH ×4 (01:02→20:55)
--- NOTE | 2017-07-13 03:32 | Progress Note ---
DATE: July 11, 2017 TIME: 6:15 a.m. OVERNIGHT: No events. REVIEW OF SYSTEMS: Unobtainable. PHYSICAL EXAMINATION VITAL SIGNS: Reviewed. GENERAL: A tired-appearing woman resting in bed. HEENT: Anicteric. CARDIOVASCULAR: Normal S1 and S2. LUNGS: Moderate breath sounds. ABDOMEN: Soft, nontender and nondistended. EXTREMITIES: No edema. SKIN: Dry. PSYCHIATRIC: Unable to assess. NEUROLOGICAL: Awake. LABS: Reviewed. MEDICATIONS: Reviewed. ASSESSMENT: An 81-year-old woman with: 1. Acute respiratory failure. 2. Clostridium difficile positive diarrhea. 3. Urinary tract infection with Citrobacter. 4. Pneumonia. 5. Acute kidney injury. 6. Metabolic encephalopathy. 7. Electrolyte derangement. 8. Dysphagia. 9. Sepsis. PLAN 1. Continue amiodarone. 2. Swallow eval. 3. Insulin Levemir titrate as appropriate. 4. Supportive care. 5. Critical care time more than 35 minutes. Job#: [id number] CT
--- NOTE | 2017-07-13 03:36 | Progress Note ---
DATE: July 12, 2017 TIME: 6:15 a.m. OVERNIGHT: No events. REVIEW OF SYSTEMS: Unobtainable. PHYSICAL EXAMINATION VITAL SIGNS: Reviewed. GENERAL: A tired-appearing woman resting in bed. HEENT: Anicteric. CARDIOVASCULAR: Normal S1 and S2. LUNGS: Moderate breath sounds. ABDOMEN: Soft and nontender. EXTREMITIES: No edema. SKIN: Dry. PSYCHIATRIC: Flat affect. NEUROLOGIC: Awake but not interactive. LABS: Reviewed. MEDICATIONS: Reviewed. ASSESSMENT: An 82-year-old woman with: 1. Acute respiratory failure. 2. Clostridium difficile positive diarrhea. 3. Urinary tract infection with Citrobacter. 4. Pneumonia. 5. Acute kidney injury. 6. Metabolic encephalopathy. 7. Electrolyte derangement. 8. Dysphagia. 9. Sepsis. PLAN 1. Continue heart rate control with amiodarone. 2. Glucose control and titrate insulin regimen. 3. Leukocytosis persists. 4. Hemoglobin somewhat stable. 5. Renal function unchanged at this time. Will continue to follow. Job#: [id number] GEREMIAS
[2017-07-13] MEDS: LACTOBACILLUS ACIDOPHILUS CAPSULE PO SCH (07:57)
[2017-07-13] MEDS: MODAFINIL 100 MG TAB PO SCH (07:57)
[2017-07-13] MEDS: AMIODARONE HCL 200 MG TAB PO SCH ×2 (07:57→17:54)
[2017-07-13] MEDS: INSULIN DETEMIR 100 UNIT/ML PEN SQ SCH ×2 (08:03→21:41)
[2017-07-13] MEDS: MEROPENEM 500 MG VIAL IV SCH ×2 (10:58→21:40)
--- NOTE | 2017-07-13 11:29 | Progress Note ---
DATE: July 13, 2017 CARDIOLOGY PROGRESS NOTE SUBJECTIVE: The patient is awake but does not really respond to questions. OBJECTIVE VITAL SIGNS: Temperature 99 degrees, pulse 88, respiratory rate 18, blood pressure 126/68. Oxygen saturation is 100% on 2 L nasal cannula. GENERAL: Elderly woman. Frail. No acute distress. LUNGS: Clear to auscultation bilaterally. No wheezes or crackles. CARDIOVASCULAR: Normal rate. Regular rhythm. No murmur. Normal S1, S2. ABDOMEN: Soft and nontender. EXTREMITIES: No edema. CARDIAC MEDICATIONS 1. Amiodarone 200 mg p.o. b.i.d. 2. Metoprolol tartrate 5 mg IV q.6 h. 3. Heparin drip. LABS: None today. TELEMETRY: Normal sinus rhythm. IMPRESSION 1. Atrial fibrillation with rapid ventricular response, now in normal sinus rhythm. 2. Acute respiratory failure, now extubated. 3. Clostridium difficile colitis. 4. Citrobacter urinary tract infection. 5. Pneumonia. 6. Acute kidney injury. 7. Altered mental status. 8. Electrolyte abnormalities. 9. Anemia. 10. Coronary artery disease, status post coronary artery bypass graft. 11. Bioprosthetic aortic valve replacement. 12. Diabetes mellitus. 13. Hypertension. RECOMMENDATIONS: Continue current cardiac medications. Heparin drip for CVA prophylaxis. We will start p.o. metoprolol. Continue amiodarone for rate control. Replete electrolytes. The patient can transfer to the floor from a cardiac standpoint on telemetry. Thank you for this consult. We will continue to follow. Job#: [id number]
[2017-07-13] MEDS: METOPROLOL TARTRATE 25 MG TAB PO SCH (17:54)
[2017-07-13] MEDS: FAMOTIDINE 20 MG TAB NG SCH (21:40)
[2017-07-14] VITALS: BP 121/65
[2017-07-14] MEDS: VANCOMYCIN 250MG/5ML ORAL SOLN PO SCH ×4 (00:11→17:08)
[2017-07-14] MEDS: METRONIDAZOLE 500MG/NS 100ML 100 ML IV SCH ×3 (00:11→16:18)
[2017-07-14] MEDS: INSULIN REGULAR, HUMAN 100 UNIT/1 ML 3ML VIAL SQ SCH ×4 (00:24→18:00)
[2017-07-14] MEDS: ALBUTEROL/IPRATROPIUM 3 ML NEB NEB SCH ×4 (02:35→19:15)
[2017-07-14 04:00] VITALS: BP 142/68
[2017-07-14 06:01] LABS: BASOPHILS # (AUTO) 0.1 (0.0-0.1); BASOPHILS % 0.4 % (0.0-1.0); EOSINOPHILS # (AUTO) 0.2 (0.0-0.4); EOSINOPHILS % 0.8 % (0.0-6.0); HEMOGLOBIN 9.3 g/dL (12.0-16.0); LYMPHOCYTES # (AUTO) 3.2 (1.0-3.2); LYMPHOCYTES % 15.2 % (18.0-39.1); MEAN CORPUSCULAR HEMOGLOBIN 30.9 pg (28-32); MEAN CORPUSCULAR HGB CONC 32.1 g/dL (31-35); MEAN CORPUSCULAR VOLUME 96.3 fL (81-99); MONOCYTES # (AUTO) 1.6 (0.2-0.8); MONOCYTES % 7.6 % (4.4-11.3); NEUTROPHILS # (AUTO) 15.2 (2.1-6.9); NEUTROPHILS % 72.5 % (38.7-80.0); PLATELET COUNT 252 x10e3/uL (140-360); RED BLOOD COUNT 3.01 x10e6/uL (3.6-5.1); RED CELL DISTRIBUTION WIDTH 16.7 % (11.7-14.4)
[2017-07-14 06:22] LABS: ANION GAP 12.3 mmol/L (8-16); CALCIUM 8.5 mg/dL (8.4-10.2); CREATININE, SERUM 1.11 mg/dL (0.57-1.11); POTASSIUM 4.3 mmol/L (3.5-5.1)
--- NOTE | 2017-07-14 07:31 | Diagnostic Imaging Report ---
PROCEDURE: A single AP view of the chest. COMPARISON: Portable chest 07/12/2017. INDICATIONS: CONGESTIVE HEART FAILURE FINDINGS: Lines/tubes: Right peripherally inserted central venous catheter with tip projecting over the expected region of the superior vena cava. Enteric feeding catheter with tip projecting over the expected region of the gastric body. Lungs: Bibasilar atelectasis. No parenchymal mass. Bilateral perihilar opacifications. Pleura: Small bilateral pleural effusions. No pneumothorax. Heart and mediastinum: The heart and the mediastinum are unremarkable. Atherosclerotic calcifications. Bones: No acute bony abnormality. Median sternotomy wires. Degenerative changes of the thoracic spine. Degenerative changes of the right shoulder. IMPRESSION: Bilateral pulmonary edema and small pleural effusions may represent congestive heart failure. Dictated by: Shmuel Rodgers M.D. on 07/14/2017 at 7:40 Electronically approved by: Shmuel Rodgers M.D. on 07/14/2017 at 7:40
[2017-07-14 08:23] VITALS: BP 157/78
--- NOTE | 2017-07-14 09:58 | Diagnostic Imaging Report ---
Examination: CT BRAIN WITHOUT CONTRAST History:Confusion. Altered mental status. Comparison studies:Head CT performed July 03, 2017 Technique: Axial images were obtained from the skull base to the vertex. Coronal and sagittal images reconstructed from the axial data. Intravenous contrast: None Findings: Scalp: No abnormalities. Bones: No fractures, blastic or lytic lesions. Brain sulci: Moderate volume loss for age. Ventricles: Ex vacuo dilatation. No hydrocephalus. Extra-axial space: No abnormalities. Parenchyma: Again demonstrated are confluent areas of hypoattenuation in the periventricular and subcortical white matter, nonspecific. No masses, hemorrhage, or acute or chronic cortical based vascular insults. Sellar/suprasellar region: No abnormalities. Craniocervical junction: Patent foramen magnum. No Chiari one malformation. Incidental findings: Atherosclerotic calcification of the cavernous and supraclinoid internal carotid and V4 segments of the bilateral vertebral arteries. Impression: 1. No new or acute intracranial abnormalities. No change from prior head CT performed July 03, 2017. 2. Unchanged moderate volume loss. 3. Unchanged mild chronic microvascular ischemic change. Signed by: Dr. Sabiha Ford M.D. on 07/14/2017 9:55 AM
[2017-07-14] MEDS: LACTOBACILLUS ACIDOPHILUS CAPSULE PO SCH (10:10)
[2017-07-14] MEDS: FAMOTIDINE 20 MG TAB NG SCH ×2 (10:10→21:59)
[2017-07-14] MEDS: AMIODARONE HCL 200 MG TAB PO SCH ×2 (10:10→17:08)
[2017-07-14] MEDS: METOPROLOL TARTRATE 25 MG TAB PO SCH ×2 (10:10→17:08)
[2017-07-14] MEDS: MODAFINIL 100 MG TAB PO SCH (10:10)
[2017-07-14] MEDS: INSULIN DETEMIR 100 UNIT/ML PEN SQ SCH ×2 (10:11→22:03)
[2017-07-14] MEDS ORDERED: DEXTROSE 50% SYRINGE 50 ML IV PRN (10:15)
[2017-07-14] MEDS: MEROPENEM 500 MG VIAL IV SCH ×2 (11:09→21:59)
[2017-07-14] MEDS ORDERED: INSULIN REGULAR, HUMAN 100 UNIT/1 ML 3ML VIAL SQ SCH (11:30)
--- NOTE | 2017-07-14 12:08 | Progress Note ---
DATE: July 14, 2017 PULMONARY MEDICINE PROGRESS NOTE SUBJECTIVE: Ms. Feldman was seen and examined at bedside. She continues to have slow progress. She remains weak and does not move her head very readily except with effort. The patient certainly is weak in all extremities and remains high assist. NG tube is still in place. There was no clinical aspiration overnight. She remains on nasal cannula oxygen with good saturation. REVIEW OF SYSTEMS: No headaches, no bleeding. OBJECTIVE VITAL SIGNS: Afebrile, vital signs noted per electronic record. GENERAL: In no acute distress, alert, weak, in bed. HEENT: Normocephalic, atraumatic. NECK: Supple. Throat midline. LUNGS: Bilateral air entry, a few rales at the bases. CARDIOVASCULAR: S1, S2. No murmurs, rubs, or gallops. ABDOMEN: Soft, nontender. EXTREMITIES: No clubbing. No cyanosis. There is trace edema. INTEGUMENT: No rash, no purpura. LABS: Pending. IMPRESSION AND PLAN 1. Clostridium difficile colitis. 2. Urinary tract infection. 3. Possible pneumonia. 4. Fluid overload. 5. Acute polyneuropathy. 6. Atrial fibrillation. Continue current treatment at this time. The patient will have further followup on the current medications. She remains on amiodarone and metoprolol for control. Await good awakening that is sustained by the patient. Furthermore, we wish to continue antibiotics for her infections. We will follow up closely. Continue tube feeds. We will assess if the patient seems ready to repeat oral evaluation soon. Follow up closely. Job#: [id number]
[2017-07-14] MEDS: HEPARIN 25,000 UNIT/D5W 250ML 250 ML IV PRN (13:19)
--- NOTE | 2017-07-14 15:25 | Progress Note ---
DATE: July 14, 2017 CARDIOLOGY PROGRESS NOTE SUBJECTIVE: Patient is somnolent. She was transferred out of the ICU yesterday. OBJECTIVE VITAL SIGNS: Temperature 96.9 degrees, pulse 101, respiratory rate 20, blood pressure 157/78, oxygen saturation 100% on 2 liters nasal cannula. GENERAL: Elderly woman, frail, no acute distress. LUNGS: Clear to auscultation bilaterally. No wheezes or crackles. CARDIOVASCULAR: Normal rate, regular rhythm. No murmur. Normal S1 and S2. ABDOMEN: Soft, nontender. EXTREMITIES: No edema. CARDIAC MEDICATIONS 1. Heparin drip. 2. Metoprolol tartrate 25 mg p.o. b.i.d. 3. Amiodarone 200 mg p.o. b.i.d. LABS: WBC 21, hemoglobin 9.3, hematocrit 29, platelets 252. Sodium 133, potassium 4.3, chloride 96, CO2 29, BUN 32, creatinine 1.1. TELEMETRY: Normal sinus rhythm. IMPRESSION 1. Atrial fibrillation with rapid ventricular response, now normal sinus rhythm. 2. Acute respiratory failure, now extubated. 3. Clostridium difficile colitis. 4. Citrobacter urinary tract infection. 5. Pneumonia. 6. Acute kidney injury. 7. Altered mental status. 8. Electrolyte abnormalities. 9. Anemia. 10. Coronary artery disease status post coronary artery bypass graft. 11. Bioprosthetic aortic valve replacement. 12. Diabetes mellitus. 13. Hypertension. RECOMMENDATIONS: Continue current cardiac medications. Heparin drip for CVA prophylaxis. If no further procedures are planned, recommend initiation of Coumadin with heparin bridge to therapeutic INR. Replete electrolytes. Thank you for this consult. We will continue to follow. Job#: [id number] [place]
[2017-07-14] MEDS: BALSAM PERU/CASTOR OIL 60 GM OINT...G. TP SCH (16:45)
--- NOTE | 2017-07-14 17:00 | Progress Note ---
DATE: July 13, 2017 PULMONARY MEDICINE PROGRESS NOTE SUBJECTIVE: Ms. Feldman was seen and examined at bedside. She continues to have steady progress. Fingersticks little bit high. She is on heparin IV. 1.8 L in, 1.7 L out. One bowel movement recorded. 100% oxygen saturation on 2 L per minute by nasal cannula. Feeds tolerated by NG tube and water is tolerated as well. She is still very weak and rotates her neck very slowly. REVIEW OF SYSTEMS: No headaches, no rash. OBJECTIVE: VITAL SIGNS: Afebrile, vital signs noted per electronic record. GENERAL: In no acute distress, alert and calm, but very weak and pale. HEENT: Normocephalic, atraumatic. NECK: Supple. Throat midline. LUNGS: Bilateral air entry, few rhonchi. CARDIOVASCULAR: S1, S2. No murmurs, rubs, or gallops. ABDOMEN: Soft, nontender. EXTREMITIES: No clubbing, no cyanosis, there is only trace edema. INTEGUMENT: No rash, no purpura. LABS: 3.8 potassium, 1.15 creatinine. 21 white count, 28 hematocrit. IMPRESSION AND PLAN: 1. Acute respiratory failure, extubated. 2. Significant severe weakness. 3. Uncontrolled diabetes and hyperglycemia. 4. Atrial fibrillation with rapid rate, now controlled. 5. Treatment as Clostridium difficile colitis. 6. Gram-negative urinary tract infection. 7. Possible pneumonia. Continue anticoagulation . Warfarin is still on hold. Heparin is ongoing. Replete potassium. Slightly increased glucose controlled. Chest x-ray will be ordered for morning as well as complete blood cell count followup. Continue to follow up as she hopefully will make good improvement. Job#: [id number]
[2017-07-14 20:00] VITALS: BP 119/58
[2017-07-14] MEDS: BALSAM PERU/CASTOR OIL 60 GM OINT...G. TP PRN (22:13)
[2017-07-14] MEDS: NYSTATIN 15 GM POWDER UD BTL TOP SCH (23:39)
[2017-07-15] VITALS (8 sets, daily range): BP systolic 134–168; BP diastolic 61–75
[2017-07-15] MEDS: VANCOMYCIN 250MG/5ML ORAL SOLN PO SCH ×2 (00:27→06:35)
[2017-07-15] MEDS: METRONIDAZOLE 500MG/NS 100ML 100 ML IV SCH ×2 (00:27→08:00)
[2017-07-15] MEDS: INSULIN REGULAR, HUMAN 100 UNIT/1 ML 3ML VIAL SQ SCH ×4 (00:27→18:00)
[2017-07-15 02:15] LABS: BASOPHILS # (AUTO) 0.1 (0.0-0.1); BASOPHILS % 0.5 % (0.0-1.0); EOSINOPHILS # (AUTO) 0.2 (0.0-0.4); EOSINOPHILS % 0.9 % (0.0-6.0); HEMATOCRIT 27.5 % (34.2-44.1); HEMOGLOBIN 8.8 g/dL (12.0-16.0); LYMPHOCYTES # (AUTO) 2.7 (1.0-3.2); LYMPHOCYTES % 14.7 % (18.0-39.1); MEAN CORPUSCULAR HEMOGLOBIN 31.3 pg (28-32); MEAN CORPUSCULAR VOLUME 97.9 fL (81-99); MONOCYTES # (AUTO) 1.4 (0.2-0.8); MONOCYTES % 7.5 % (4.4-11.3); NEUTROPHILS # (AUTO) 13.6 (2.1-6.9); NEUTROPHILS % 73.5 % (38.7-80.0); PLATELET COUNT 245 x10e3/uL (140-360); RED BLOOD COUNT 2.81 x10e6/uL (3.6-5.1); RED CELL DISTRIBUTION WIDTH 17.2 % (11.7-14.4)
[2017-07-15 02:32] LABS: ANION GAP 10.3 mmol/L (8-16); CALCIUM 8.3 mg/dL (8.4-10.2); CREATININE, SERUM 1.03 mg/dL (0.57-1.11); POTASSIUM 4.3 mmol/L (3.5-5.1)
[2017-07-15] MEDS: ALBUTEROL/IPRATROPIUM 3 ML NEB NEB SCH ×4 (06:51→19:45)
[2017-07-15] MEDS: NYSTATIN 15 GM POWDER UD BTL TOP SCH (09:00)
[2017-07-15] MEDS: FAMOTIDINE 20 MG TAB NG SCH ×2 (09:00→21:00)
[2017-07-15] MEDS: BALSAM PERU/CASTOR OIL 60 GM OINT...G. TP SCH ×2 (09:00→17:00)
[2017-07-15] MEDS: INSULIN DETEMIR 100 UNIT/ML PEN SQ SCH ×2 (09:00→21:00)
[2017-07-15] MEDS: LACTOBACILLUS ACIDOPHILUS CAPSULE PO SCH (09:00)
[2017-07-15] MEDS: METOPROLOL TARTRATE 25 MG TAB PO SCH ×2 (09:00→17:00)
[2017-07-15] MEDS: AMIODARONE HCL 200 MG TAB PO SCH ×2 (09:00→17:00)
[2017-07-15] MEDS: MODAFINIL 100 MG TAB PO SCH (09:00)
[2017-07-15] MEDS ORDERED: SODIUM CHLORIDE 0.9% 250ML 250 ML ONE (09:26)
[2017-07-15] MEDS: MEROPENEM 500 MG VIAL IV SCH ×2 (10:30→23:00)
[2017-07-15] MEDS ORDERED: PROPOFOL IV EMULSION 10 MG/ML 20 ML VIAL ONE (13:50)
[2017-07-15] MEDS ORDERED: LIDOCAINE HCL 2% LOCAL INJ 5 ML SDV VIAL INJ ONE (13:50)
--- NOTE | 2017-07-15 14:39 | Diagnostic Imaging Report ---
History: CVA? Comparison studies: CT head 07/14/2017 Technique: Sagittal T2; axial DWI, FLAIR, MPGR, T1, Coronal FLAIR. Intravenous contrast: None Findings: Scalp: Normal in signal . No masses . Bone marrow: Normal in signal intensity. Extra-axial: No masses, no fluid collections. Brain sulci: Moderately prominent. Ventricles: Moderately prominent . No hydrocephalus . Parenchyma: Periventricular T-2/flair hyperintensities No masses, hemorrhage, acute or chronic vascular insults. Suprasellar region: No abnormalities. Craniocervical junction: No abnormalities. Patent foramen magnum. No Chiari one malformation. Vessels: Normal flow-voids in the arteries and sinuses. Bilateral mastoid effusions, secondary to nonspecific inflammation. IMPRESSION: 1. No acute abnormalities. 2. Prominent lateral ventricles, this could be related to central atrophy or normal pressure hydrocephalus, clinical correlation recommended. 3. Mild chronic microvascular ischemic changes of white matter. 4. Nonspecific inflammatory changes of the bilateral masseter cells. Signed by: DR Francisco Jansen M.D. on 07/15/2017 2:35 PM
--- NOTE | 2017-07-15 15:27 | Progress Note ---
DATE: July 15, 2017 CARDIOLOGY PROGRESS NOTE SUBJECTIVE: The patient is awake but does not interact. OBJECTIVE VITAL SIGNS: Temperature 98.4 degrees, pulse 96, respiratory rate 17, blood pressure 158/76, oxygen saturation 96% on 3 liters nasal cannula. GENERAL: Elderly woman, frail, no acute distress. LUNGS: Clear to auscultation bilaterally. No wheezes or crackles. CARDIOVASCULAR: Normal rate, regular rhythm. No murmur. Normal S1 and S2. ABDOMEN: Soft, nontender. EXTREMITIES: No edema. CARDIAC MEDICATIONS 1. Heparin drip. 2. Metoprolol tartrate 25 mg p.o. b.i.d. 3. Amiodarone 200 mg p.o. b.i.d. LABS: WBC 18.5, hemoglobin 8.8, hematocrit 27.5, platelets 245,000, sodium 135, potassium 4.3, chloride 100, CO2 of 29, BUN 32, creatinine 1.03. IMPRESSION 1. Atrial fibrillation with rapid ventricular response, now normal sinus rhythm. 2. Acute respiratory failure, now extubated. 3. Clostridium difficile colitis. 4. Citrobacter urinary tract infection. 5. Pneumonia. 6. Acute kidney injury. 7. Altered mental status. 8. Electrolyte abnormalities. 9. Anemia. 10. Coronary artery disease status post coronary artery bypass graft. 11. Bioprosthetic aortic valve replacement. 12. Diabetes mellitus. 13. Hypertension. RECOMMENDATIONS: Continue current cardiac medications. Resume heparin drip once procedure complete. If no further procedures, our plan is to recommend administration of Coumadin with heparin bridge to therapeutic INR. Replete electrolytes as necessary. Thank you for this consult. We will continue to follow. Job#: [id number]
--- NOTE | 2017-07-15 18:01 | Operative Report ---
DATE OF PROCEDURE: July 15, 2017 REFERRING PHYSICIAN: Dr. Mindi Frost. PROCEDURE PERFORMED: Esophagogastroduodenoscopy and percutaneous endoscopic gastrotomy tube placement. INDICATIONS FOR PROCEDURE: Patient is nasogastric tube feeding dependent. She is in for an EGD and PEG tube insertion. MEDICATION: Patient was done under MAC. Please see anesthesiologist's note. PROCEDURE: With the patient in the supine position, the flexible fiberoptic Olympus gastroscope was introduced into the esophagus under direct visualization without any difficulty. There was some patchy erythema noted in the distal esophagus. The scope was then advanced with ease into the stomach, and mucosa overlying the antrum and the body revealed some diffuse erythema. The pylorus was intubated with ease, and the scope was advanced all the way to the 2nd portion of the duodenum. The scope was then withdrawn slowly. Mucosa overlying the proximal 2nd portion and the duodenal bulb grossly appeared to be within normal limits. The scope was then withdrawn back into the stomach and retroflexed, and the mucosa overlying the fundus and the cardia appeared to be within normal limits. A small hiatal hernia was noted in the retroflexed position. The scope was then straightened out, and after delineating a safe entry point per external digital palpation and transabdominal illumination, a PEG tube insertion was carried out in the usual fashion. The scope was subsequently withdrawn after documenting a good positioning of the intragastric bumper. Patient tolerated procedure well. IMPRESSION: 1. Distal esophagitis, mild. 2. Small hiatal hernia. 3. Gastritis, mild. 4. Percutaneous endoscopic gastrotomy tube placement carried out in the usual fashion. Patient tolerated the procedure well. PLAN: G-tube to drain to gravity times 24 hours in a Daly bag, then can use. Job#: [id number] EV cc:MINDI FROST MD
[2017-07-15] MEDS: SODIUM CHLORIDE 0.45% 1,000 ML IV SCH (18:15)
[2017-07-16] MEDS: ALBUTEROL/IPRATROPIUM 3 ML NEB NEB SCH ×3 (01:00→12:36)
[2017-07-16 01:19] VITALS: BP 141/63
--- NOTE | 2017-07-16 04:09 | Progress Note ---
DATE: July 15, 2017 PULMONARY MEDICINE PROGRESS NOTE SUBJECTIVE: Mrs. Feldman was seen and examined at bedside. She continues to have a lot of weakness. Oxygen saturation 94% on 3 L per minute of oxygen by nasal cannula. One bowel movement was achieved. She is still on heparin drip. She is still excessively sleepy. Family had discussion, and they want to give her a little bit more time, and they elected for feeding tube placement. REVIEW OF SYSTEMS: Cannot get as she is rather sleepy. OBJECTIVE VITALS: Afebrile. Vital signs noted per electronic record. GENERAL: Looks weak in bed. Spontaneously breathing. HEENT: Normocephalic and atraumatic. NECK: Supple. Throat midline. LUNGS: Bilateral air entry. Few rhonchi bilaterally. CARDIOVASCULAR: S1 and S2. No murmurs, rubs or gallops. ABDOMEN: Soft and nontender. EXTREMITIES: No clubbing. No cyanosis. There is trace edema. INTEGUMENT: No rash. No purpura. LABS: White count 19, hematocrit 28 and platelets 245,000. BUN 32, creatinine 1. IMPRESSION AND PLAN 1. Weakness. 2. Encephalopathy, multifactorial, toxic metabolic. 3. Citrobacter urinary tract infection. 4. Acute respiratory failure, improved. 5. Dysphagia, failure to thrive. Expect for PEG tube tonight. Follow up closely. MRI was ordered for the brain to assess better the pathology. Patient continues to need close followup. Will repeat a chest x-ray in the morning. Follow along closely. Patient remains in very guarded condition due to her weakness. Repeat CBC until the white count resolves. Will follow along. Thank you very much, Dr. Frost. Job#: [id number] [place]
[2017-07-16] MEDS: INSULIN REGULAR, HUMAN 100 UNIT/1 ML 3ML VIAL SQ SCH ×3 (06:00→12:00)
[2017-07-16 06:23] VITALS: BP 180/88
--- NOTE | 2017-07-16 06:29 | Diagnostic Imaging Report ---
EXAM: CHEST SINGLE (PORTABLE), AP 1 view DATE: 07/16/2017 5:00 AM INDICATION: Congestive heart failure COMPARISON: 07/14/2017 FINDINGS: LINES/TUBES: Removal of NG tube. Stable right PICC. LUNGS: Low volumes with central vascular congestion and bibasilar atelectasis, stable PLEURA: Small pleural effusions, stable HEART AND MEDIASTINUM: Stable appearance IMPRESSION: Removal of NG tube. Otherwise no significant interval change. Signed by: Dr Faviola Soto MD on 07/16/2017 6:25 AM
[2017-07-16 06:50] LABS: BASOPHILS # (AUTO) 0.1 (0.0-0.1); BASOPHILS % 0.4 % (0.0-1.0); EOSINOPHILS # (AUTO) 0.1 (0.0-0.4); EOSINOPHILS % 0.5 % (0.0-6.0); HEMATOCRIT 26.7 % (34.2-44.1); HEMOGLOBIN 8.5 g/dL (12.0-16.0); LYMPHOCYTES # (AUTO) 1.6 (1.0-3.2); LYMPHOCYTES % 14.1 % (18.0-39.1); MEAN CORPUSCULAR HEMOGLOBIN 30.8 pg (28-32); MEAN CORPUSCULAR HGB CONC 31.8 g/dL (31-35); MEAN CORPUSCULAR VOLUME 96.7 fL (81-99); MONOCYTES # (AUTO) 1.1 (0.2-0.8); NEUTROPHILS # (AUTO) 8.2 (2.1-6.9); NEUTROPHILS % 73.1 % (38.7-80.0); PLATELET COUNT 256 x10e3/uL (140-360); RED BLOOD COUNT 2.76 x10e6/uL (3.6-5.1)
[2017-07-16 07:02] LABS: PROTHROMBIN TIME 13.7 seconds (11.9-14.5)
[2017-07-16 07:13] LABS: ANION GAP 12.3 mmol/L (8-16); BLOOD UREA NITROGEN 28 mg/dL (7-26); BUN/CREATININE RATIO 33 (6-25); CALCIUM 8.2 mg/dL (8.4-10.2); CARBON DIOXIDE 28 mmol/L (22-29); CHLORIDE 103 mmol/L (98-107); CREATININE, SERUM 0.84 mg/dL (0.57-1.11); EST GLOMERULAR FILTRATION RATE > 60 ML/MIN (60-); GLUCOSE 139 mg/dL (74-118); POTASSIUM 4.3 mmol/L (3.5-5.1); SODIUM 139 mmol/L (136-145)
[2017-07-16 08:52] VITALS: BP 163/72
[2017-07-16] MEDS: AMIODARONE HCL 200 MG TAB PO SCH ×2 (09:00→17:00)
[2017-07-16] MEDS: INSULIN DETEMIR 100 UNIT/ML PEN SQ SCH (09:00)
[2017-07-16] MEDS: LACTOBACILLUS ACIDOPHILUS CAPSULE PO SCH (09:00)
[2017-07-16] MEDS: BALSAM PERU/CASTOR OIL 60 GM OINT...G. TP SCH ×2 (09:00→17:00)
[2017-07-16] MEDS: METOPROLOL TARTRATE 25 MG TAB PO SCH ×2 (09:00→17:00)
[2017-07-16] MEDS: FAMOTIDINE 20 MG TAB NG SCH (09:00)
[2017-07-16] MEDS: MODAFINIL 100 MG TAB PO SCH (09:00)
[2017-07-16] MEDS: NYSTATIN 15 GM POWDER UD BTL TOP SCH (09:00)
[2017-07-16] MEDS: MEROPENEM 500 MG VIAL IV SCH (10:30)
[2017-07-16] MEDS ORDERED: MERREM500 MG IV (11:57)
[2017-07-16] MEDS ORDERED: DEXTROSE 50%-WA50 M1 IV (11:57)
[2017-07-16] MEDS ORDERED: HUMULIN R100 UNIT/2 SQ (11:57)
[2017-07-16] MEDS ORDERED: [UNRECOGNIZED DRUG - OTHER] IV (11:57)
[2017-07-16] MEDS ORDERED: FAMOTIDINE20 MG NG (11:57)
[2017-07-16] MEDS ORDERED: NYAMYC15 GM TOP (11:57)
[2017-07-16] MEDS ORDERED: AMIODARONE HCL200 MG PO (11:57)
[2017-07-16] MEDS ORDERED: VENELEX OINTMEN60 GM TP (11:57)
[2017-07-16] MEDS ORDERED: LOPRESSOR25 MG PO (11:57)
[2017-07-16] MEDS ORDERED: Albuterol/Ipratropium Nebulize NEB (11:57)
[2017-07-16] MEDS ORDERED: ONDANSETRON4 MG/2 M1 IV (11:57)
[2017-07-16] MEDS ORDERED: Lactobacillus Acidophilus PO (11:57)
[2017-07-16] MEDS ORDERED: Insulin Detemir SQ (11:57)
[2017-07-16] MEDS ORDERED: PROVIGIL100 MG PO (11:57)
[2017-07-16] MEDS ORDERED: Acetaminophen Supp PR (11:57)
[2017-07-16] MEDS ORDERED: VANCOCIN HCL250 MG PO (11:57)
[2017-07-16] MEDS ORDERED: XARELTO10 MG PO (11:57)
[2017-07-16] MEDS ORDERED: MAGNESIUM OXID400 MG PEG (11:58)
[2017-07-16] MEDS ORDERED: ZINC SULFATE220 MG PEG (11:58)
[2017-07-16] MEDS ORDERED: VANCOMYCIN 250MG/5ML ORAL SOLN PO SCH (12:00)
--- NOTE | 2017-07-16 13:58 | Progress Note ---
DATE: CARDIOLOGY PROGRESS NOTE SUBJECTIVE: Patient is unable to report. However, daughter at the bedside reports the patient has been quite drowsy OBJECTIVE VITAL SIGNS: Temperature 97, pulse 94, respiratory rate 18, blood pressure 163/72, oxygen saturation 95% on 3 L nasal cannula. GENERAL: Awake. Eye opening to name calling. Resting comfortably in bed. Daughter at the bedside. NECK: Supple. LUNGS: Diminished breath sounds throughout. CARDIOVASCULAR: Regular rate and rhythm. Tachycardic. ABDOMEN: Soft and nontender. Hypoactive bowel sounds. LOWER EXTREMITIES: Two plus pedal pulses. CARDIOVASCULAR MEDICATIONS 1. Metoprolol 25 mg p.o. b.i.d. 2. Amiodarone 200 mg p.o. b.i.d. 3. Modafinil 200 mg p.o. daily. 4. Metoprolol 5 mg q.6 h. p.r.n. LABS: WBC 11.25, hemoglobin 8.5, hematocrit 26.7, and platelets 256,000. Sodium 139, potassium 4.3, BUN 28, creatinine 0.84, glucose 139. Calcium 8.2. PT 13.7, INR 1 and PTT 29.2. Chest x-ray with no significant interval change. Brain MRI from yesterday with no acute abnormality. Mild chronic microvascular ischemic changes of white matter, and nonspecific inflammatory changes in bilateral center cells. Telemetry is sinus rhythm. IMPRESSION 1. Atrial fibrillation with rapid ventricular response, now is normal sinus rhythm. 2. Acute respiratory failure, now extubated. 3. Clostridium difficile. 4. Citrobacter urinary tract infection. 5. Pneumonia. 6. Acute kidney injury. 7. Altered mental status. 8. Electrolyte abnormality. 9. Anemia. 10. Coronary artery disease, status post coronary artery bypass graft. 11. Bioprosthetic aortic valve replacement. 12. Diabetes mellitus. 13. Hypertension. RECOMMENDATIONS: Continue with the above-listed cardiac medication. Resume heparin now that PEG tube has been placed. If no other procedures are planned, we will bridge Coumadin and heparin until INR is therapeutic. Monitor closely. Maintain on telemetry at all times. DICTATED BY JOSEFINA ORR NP Job#: [id number] [place]
[2017-07-16] MEDS ORDERED: METRONIDAZOLE 500MG/NS 100ML 100 ML IV SCH (14:00)
[2017-07-16] MEDS: SODIUM CHLORIDE 0.45% 1,000 ML IV SCH (14:15)
[2017-07-16 16:21] VITALS: BP 101/56
[2017-07-16] MEDS ORDERED: WARFARIN SOD 1 MG TAB PO SCH (17:00)
[2017-07-16] MEDS ORDERED: RIVAROXABAN 20 MG TABLET PO SCH (17:00)
[2017-07-16] MEDS ORDERED: FUROSEMIDE INJ 10 MG/ML 4 ML VIAL IV SCH (21:00)
--- NOTE | 2017-07-17 06:30 | Progress Note ---
DATE: July 16, 2017 PULMONARY MEDICINE PROGRESS NOTE SUBJECTIVE: Mrs. Feldman was seen and examined at bedside. She continues with slow progress. She is awake for a couple of hours reportedly today. She was able to say the word "okay" a few times. Her Daly with good urine output; 1:1.5 normal saline at 50 mL per hour; 100% oxygen saturation on 3 L per minute by nasal cannula. REVIEW OF SYSTEMS: Cannot get reliably as she is altered. OBJECTIVE VITALS: Afebrile. Vital signs noted per the chart record. GENERAL: No acute distress but alert, calm in bed but not doing too much. Looks chronic. HEENT: Normocephalic and atraumatic. NECK: Supple. Throat midline. LUNGS: Bilateral air entry. Few rhonchi, decreased effort. CARDIOVASCULAR: S1 and S2. No murmurs, rubs, or gallops. ABDOMEN: Soft and nontender. EXTREMITIES: No clubbing. No cyanosis. There is trace edema. INTEGUMENT: No rash. No purpura. LABS: Potassium 4.3, creatinine 0.8. White count 11, hematocrit 26. IMPRESSIONS 1. Severe citrobacter urinary tract infection. 2. Acute respiratory failure, resolved. 3. Acute kidney injury, improved. 4. Encephalopathy, toxic metabolic, improving slowly. 5. Remnant fluid overload. 6. Possible pneumonia. PLAN: At this time, continue antibiotics. adjusted for her size. Furthermore, patient will have clinical followup to ensure appropriate neuropsychiatric wakefulness and response. PEG tube was placed and she will be allowed to start eating by the PEG tube tonight. Patient will have some Lasix trough to try to keep her slightly on the dry side. We will follow along closely. Job#: [id number]
--- NOTE | 2017-07-17 08:48 | Discharge Summary ---
PERTINENT HISTORY AND PHYSICAL INFORMATION/HISTORY OF PRESENT ILLNESS: Ms. Feldman is an 81-year-old lady who was found unresponsive at [facility] and sent to the emergency room for evaluation. She was urgently intubated in the emergency department for altered mental status. Her past medical history is significant for hypertension, coronary artery disease, aortic stenosis, type 2 diabetes mellitus, and frequent UTIs. She has a history of aortic valve replacement and 1-vessel CABG in 2010. She has a distant history of hysterectomy and has had 2 bladder suspensions done in 2005 in an attempt to address those recurrent UTIs. Dr. Veronica was consulted with infectious disease. Dr. Prince was consulted with pulmonary critical care medicine as the patient was intubated. Dr. Allen with urology was consulted due to recurrent UTIs, and Dr. Winston was consulted with gastroenterology for PEG placement, which was placed yesterday on July 15. Dr. Springer was consulted for atrial fibrillation with RVR. THE PATIENT HAS A STATED ALLERGY TO ITRACONAZOLE. The patient's family history is significant for hypertension and diabetes. SOCIAL HISTORY: The patient does not smoke, drink or use illegal drugs. She requires quite a bit of assistance with ADLs. Upon admission, the chest x-ray had shown right lower lobe atelectasis, possibly early pneumonia. CT scan of the brain had shown no acute disease, had shown extensive microvascular changes and atrophy consistent with age. Urinalysis had greater than 50 white cells, and her urine culture was growing greater than 100,000 gram-negative rods and urine culture came back positive for Citrobacter freundii. B-type natriuretic peptide was 347. Lactic acid 10.5. Sodium 121, potassium 2.9, chloride 92, CO2 19. Creatinine was 1.08, BUN 17 for a GFR of 49. After 24 hours of hydration with D5 NS and potassium, the patient had a sodium level of 129, potassium 3.4, and CO2 was still 19. Creatinine 0.8, BUN 13 for a normal GFR. Calcium 7.5, magnesium 0.9, phosphorus 1.4. Glucose 79. LFTs were normal. CBC showed a white blood cell count of 38.8 thousand with 88% neutrophils, 5% lymphocytes and 3% monocytes. H\T\H was 10 and 28.9, and platelet count was 327,000. ADMITTING DIAGNOSES: Included 1. Acute respiratory failure secondary to altered mental status and sepsis. 2. Urinary tract infection with sepsis. 3. Possible right lower lobe pneumonia. 4. Hypertension. 5. Type 2 diabetes mellitus. Lovenox was used for DVT prophylaxis and Pepcid for GI prophylaxis. The patient was gradually weaned off the ventilator by Pulmonary Medicine. The patient received nebulized treatments and IV antibiotics. The patient continues to receive meropenem, IV antibiotics. Her respiratory status is much improved and currently using nasal cannula. Her repeat urine culture is negative. She was found to have right lower lobe pneumonia. She has been receiving metoprolol tartrate for hypertension. C. difficile toxin was positive on July 04 and negative on July 13. Blood culture and sensitivity was negative on July 14. Her brain CT on July 14 showed no acute abnormalities and no changes. Her brain MRI from July 15 showed no acute abnormalities. Her chest x-ray from today was negative. Her hyponatremia is improved. Subjectively the patient remains lethargic with altered mental status. Her daughter, Clement, is at the bedside. Case was discussed with her. PHYSICAL EXAMINATION VITAL SIGNS: Temperature 97.0, heart rate 95, blood pressure 163/72, respirations 18, oxygen saturation 95%. Intake and output 1084 mL in, 900 mL out. GENERAL: The patient is awake, supine on her left side. No acute distress. LUNGS: Generally clear. Oxygen at 2 liters per minute via nasal cannula. HEENT: Extraocular eye movements intact. NECK: Supple. No lymphadenopathy, thyromegaly or JVD noted. CARDIOVASCULAR: Irregularly irregular with heart rate controlled. She currently has half-normal saline infusing at 50 mL an hour. ABDOMEN: Bowel sounds positive. Soft, nontender, nondistended. She has a PEG which is to bedside drainage currently. She has a Daly catheter with yellow urine. EXTREMITIES: Without pitting edema. No clubbing, cyanosis or marked swelling. NEUROLOGICAL: GCS of 13: Eye 3, verbal 4, motor 6. LABORATORY DATA: Fingerstick blood glucose levels from yesterday were 151, 84, 131, 116 and 115. Then today: Sodium 139, potassium 4.3, chloride 103, CO2 28, BUN 28, creatinine 0.84, glucose 139. WBC 11.2, hemoglobin 8.5, hematocrit 26.7, platelets 256,000. Neutrophils 73.1%. PT 13.7, PTT 29.2, INR 1.0. DISCHARGE DIAGNOSES 1. Status post acute respiratory failure due to altered mental status and sepsis. 2. Sepsis with status post Citrobacter freundii urinary tract infection, right lower lobe pneumonia, Clostridium difficile colitis. 3. Altered mental status/encephalopathy with hyponatremia. 4. Recent atrial fibrillation with rapid ventricular response. 5. Hypertension. 6. Type 2 diabetes mellitus. 7. Percutaneous endoscopic gastrotomy status. The patient will be transferred to [facility] today. Plans are to begin feeding [facility] We will check an ammonia level and determine if hyperammonemia exists. Continue to monitor for improvement in mental status as her leukocytosis seems to be improving. Dictated by: Chaka Capps NP MINDI WHARTON MD Job#: [id number]
== END 2017-07-16 17:39 | DRG 870 ==
LOC: ER 17:42 → EDBEDREQSVC 19:46 → ERHOLD 20:26 → ICU 22:16 → MED/SURG2 07-13 16:51
PROVIDERS: ADMIT Internal Medicine; ATTEND Internal Medicine
PROC: 5A1955Z Respiratory Ventilation, Greater than 96 Consecutive Hours (ICD-10-PCS; principal; 2017-07-03)
PROC: 0BH17EZ Insertion of Endotracheal Airway into Trachea, Via Natural or Artificial Opening (ICD-10-PCS; 2017-07-03)
PROC: 02HV33Z Insertion of Infusion Device into Superior Vena Cava, Percutaneous Approach (ICD-10-PCS; 2017-07-06)
PROC: 0DHA8UZ Insertion of Feeding Device into Jejunum, Via Natural or Artificial Opening Endoscopic (ICD-10-PCS; 2017-07-15)
PROC: 0DJ08ZZ Inspection of Upper Intestinal Tract, Via Natural or Artificial Opening Endoscopic (ICD-10-PCS; 2017-07-15)
DX: A41.89 Other specified sepsis (principal); J96.00 Acute respiratory failure, unspecified whether with hypoxia or hypercapnia; J18.9 Pneumonia, unspecified organism; E43 Unspecified severe protein-calorie malnutrition; G93.41 Metabolic encephalopathy; N17.9 Acute kidney failure, unspecified; E87.3 Alkalosis; E11.65 Type 2 diabetes mellitus with hyperglycemia; E11.22 Type 2 diabetes mellitus with diabetic chronic kidney disease; N39.0 Urinary tract infection, site not specified; E87.1 Hypo-osmolality and hyponatremia; B96.7 Clostridium perfringens [C. perfringens] as the cause of diseases classified elsewhere; I25.10 Atherosclerotic heart disease of native coronary artery without angina pectoris; Z95.1 Presence of aortocoronary bypass graft; Z95.2 Presence of prosthetic heart valve; E87.6 Hypokalemia; B96.89 Other specified bacterial agents as the cause of diseases classified elsewhere; E83.42 Hypomagnesemia; E83.39 Other disorders of phosphorus metabolism; R65.20 Severe sepsis without septic shock; I48.91 Unspecified atrial fibrillation; D64.9 Anemia, unspecified; R62.7 Adult failure to thrive; R13.10 Dysphagia, unspecified; I12.9 Hypertensive chronic kidney disease with stage 1 through stage 4 chronic kidney disease, or unspecified chronic kidney disease; N18.9 Chronic kidney disease, unspecified; Z68.22 Body mass index [BMI] 22.0-22.9, adult; K20.9 Esophagitis, unspecified; K29.70 Gastritis, unspecified, without bleeding; K44.9 Diaphragmatic hernia without obstruction or gangrene
CPT/HCPCS: 31500; 36415; 36569; 36600; 70450; 70551; 71010; 74176; 80048; 80053; 81001; 82270; 82550; 82553; 82805; 82948; 83605; 83735; 83880; 84100; 84134; 84439; 84443; 84484; 85025; 85610; 85730; 87040; 87086; 87186; 87493; 93005; 93306; 94002; 94003; 94640; 96372; 97139; 99285; J0456; J0692; J0694; J1644; J1650; J1940; J1956; J2001; J2185; J2250; J2405; J3370; J3475; J3480; J7030; J7050; J7799

== ENCOUNTER 2017-09-22 19:58 | Inpatient (IN) | payer MEDICARE, OTHER ==
[~2017-09-22] VITALS: Ht 147.3 cm; Wt 49.9 kg
[~2017-09-22 19:58] MED LIST changes: +AMIODARONE HCL200 MG PO; +ASCORBIC ACID500 MG PO; +Acetaminophen Supp PR; +Albuterol/Ipratropium Nebulize NEB; +DEXTROSE 50%-WA50 M1 IV; +FAMOTIDINE20 MG NG; +GABAPENTIN100 MG PO; +HUMULIN R100 UNIT/2 SQ; +IMODIUM2 MG PO; +Insulin Detemir SQ; +LOPRESSOR25 MG PO; +Lactobacillus Acidophilus PO; +MAGNESIUM OXID400 MG PEG; +MERREM500 MG IV; +MULTIVITAMINS1 EAC7 PO; +NOVOLOG100 UNITS1; +NYAMYC15 GM TOP; +ONDANSETRON4 MG/2 M1 IV; +OS-CAL 500+D T1 EACH PO; +PANTOPRAZOLE SO40 MG PO; +PERCOCET 10-321 EACH PO; +PROVIGIL100 MG PO; +TRESIBA SC; +URSODIOL300 MG PO; +VANCOCIN HCL250 MG PO; +VENELEX OINTMEN60 GM TP; +VOLTAREN100 GM TD; +XARELTO10 MG PO; +ZINC SULFATE220 MG PEG; +[UNRECOGNIZED DRUG - OTHER] IV
--- OUTSIDE RECORDS SUMMARY | 2017-09-22 20:00 | XMS REPORT ---
Author Author [facility] Address Unknown Phone Unavailable Care Team Providers Care Portfolio Mgr Name Role Phone MINDI WHARTON Unavailable Unavailable Problems This patient has no known problems. Allergies, Adverse Reactions, Alerts This patient has no known allergies or adverse reactions. Medications This patient has no known medications. Results Test Description Test Time Test Comments Text Results Atomic Results Result Comments CHEST SINGLE (PORTABLE) [place] [address] Patient Name: WANDA RIVAS MR #: [id number] : 1935 Age/Sex: 81/F Req #: [id number] Adm Physician: MINDI WHARTON MD Ordered by: VINOD TIM MD Report #: [id number] Location: MED/SURG2 Room/Bed: [facility] Procedure: [id number] DX/CHEST SINGLE (PORTABLE) Exam Date: 07/16/17 Exam Time: 0515 REPORT STATUS: Signed EXAM: CHEST SINGLE (PORTABLE), AP 1 view DATE: 07/16/2017 5: 00 AM INDICATION: Congestive heart failure COMPARISON: 07/14/2017 FINDINGS: LINES/TUBES: Removal of NG tube. Stable right PICC. LUNGS: Low volumes with central vascular congestion and bibasilar atelectasis, stable PLEURA: Small pleural effusions, stable HEART AND MEDIASTINUM: Stable appearance IMPRESSION: Removal of NG tube. Otherwise no significant interval change. Signed by: Dr Barbara Gongora MD on 07/16/2017 6:25 AM Dictated By: BARBARA GONGORA MD 4 Transcribed By: LUZ on 07/16/17624 COPY TO: VINOD TIM MD MRI BRAIN WO [place] [address] Patient Name: WANDA RIVAS MR #: [id number] : 1935 Age/Sex: 81/F Req #: [id number] Adm Physician: MINDI WHARTON MD Ordered by: Bernadette Cleary QUANTITATIVE RESEARCH ANALYST Report #: [id number] Location: MED/SURG2 Room/Bed: [facility] _ Procedure: [id number] MRI/MRI BRAIN WO Exam Date: Exam Time: REPORT STATUS: Signed History: CVA? Comparison studies: CT head 07/14/2017 Technique: Sagittal T2; axial DWI, FLAIR, MPGR, T1, Coronal FLAIR. Intravenous contrast: None Findings: Scalp : Normal in signal . No masses . Bone marrow: Normal in signal intensity. Extra-axial: No masses, no fluid collections. Brain sulci: Moderately prominent. Ventricles: Moderately prominent . No hydrocephalus . Parenchyma: Periventricular T-2/flair hyperintensities No masses, hemorrhage , acute or chronic vascular insults. Suprasellar region: No abnormalities. Craniocervical junction: No abnormalities. Patent foramen magnum. No Chiari one malformation. Vessels: Normal flow-voids in the arteries and sinuses. Bilateral mastoid effusions, secondary to nonspecific inflammation. IMPRESSION: 1. No acute abnormalities. 2. Prominent lateral ventricles, this could be related to central atrophy or normal pressure hydrocephalus, clinical correlation recommended. 3. Mild chronic microvascular ischemic changes of white matter. 4. Nonspecific inflammatory changes of the bilateral masseter cells. Signed by: DR Francisco Jansen M.D. on 07/15/2017 2:35 PM Dictated By: FRANCISCO JANSEN MD 34 Transcribed By: LUZ on 07/15/17 143 COPY TO: BERNADETTE CLEARY NP CT BRAIN WO [place] [address] Patient Name: WANDA RIVAS MR #: [id number] : 1935 Age/Sex: 81/F Req #: [id number] Adm Physician: MINDI WHARTON MD Ordered by: MINDI WHARTON MD Report #: [id number] Location: [facility] Room/Bed: [facility] _ Procedure: [id number] CT/CT BRAIN WO Exam Date: 07/14/17 Exam Time: 0830 REPORT STATUS: Signed Examination: CT BRAIN WITHOUT CONTRAST History:Confusion. Altered mental status. Comparison studies:Head CT performed July 03, 2017 Technique: Axial images were obtained from the skull base to the vertex. Coronal and sagittal images reconstructed from the axial data. Intravenous contrast: None Findings: Scalp: No abnormalities. Bones: No fractures, blastic or lytic lesions. Brain sulci: Moderate volume loss for age. Ventricles: Ex vacuo dilatation. No hydrocephalus. Extra-axial space: No abnormalities. Parenchyma: Again demonstrated are confluent areas of hypoattenuation in the periventricular and subcortical white matter, nonspecific. No masses, hemorrhage, or acute or chronic cortical based vascular insults. Sellar/ suprasellar region: No abnormalities. Craniocervical junction: Patent foramen magnum. No Chiari one malformation. Incidental findings: Atherosclerotic calcification of the cavernous and supraclinoid internal carotid and V4 segments of the bilateral vertebral arteries. Impression: 1. No new or acute intracranial abnormalities. No change from prior head CT performed July 03, 2017. 2. Unchanged moderate volume loss. 3. Unchanged mild chronic microvascular ischemic change. Signed by: Dr. Becki Ford M.D. on 07/14/2017 9:55 AM Dictated By: BECKI LANDERS MD 4 COPY TO: MINDI WHARTON MD CHEST SINGLE (PORTABLE) [place] [address] Patient Name: WADNA RIVAS MR #: [id number] : 1935 Age/Sex: 81/F Req #: [id number] Adm Physician: MINDI WHARTON MD Ordered by: VINOD TIM MD Report #: [id number] Location: MED/SURG2 Room/Bed: [facility] Procedure: [id number] DX/CHEST SINGLE (PORTABLE) Exam Date: 07/14/17 Exam Time: 0641 REPORT STATUS: Signed PROCEDURE: A single AP view of the chest. COMPARISON: Portable chest 07/12/2017. INDICATIONS: CONGESTIVE HEART FAILURE FINDINGS: Lines/tubes: Right peripherally inserted central venous catheter with tip projecting over the expected region of the superior vena cava. Enteric feeding catheter with tip projecting over the expected region of the gastric body. Lungs: Bibasilar atelectasis. No parenchymal mass. Bilateral perihilar opacifications. Pleura: Small bilateral pleural effusions. No pneumothorax. Heart and mediastinum: The heart and the mediastinum are unremarkable. Atherosclerotic calcifications. Bones : No acute bony abnormality. Median sternotomy wires. Degenerative changes of the thoracic spine. Degenerative changes of the right shoulder. IMPRESSION: Bilateral pulmonary edema and small pleural effusions may represent congestive heart failure. Dictated by: Mo Del Real M.D. on 07/14/2017 at 7:40 Electronically approved by: Mo Del Real M.D. on 07/14/2017 at 7:40 Dictated By: MO DEL REAL MD 9 Transcribed By: LEIGH on 07/14/17739 COPY TO: VINOD TIM MD CHEST SINGLE (PORTABLE) [place] [address] Patient Name: WANDA RIVAS MR #: [id number] : 1935 Age/Sex: 81/F Req #: [id number] Adm Physician: MINDI WHARTON MD Ordered by: MARZENA SEVERINO MD Report #: [id number] Location: ICU Room/Bed: [place] [address] ___ Procedure: [id number] DX/CHEST SINGLE (PORTABLE) Exam Date: 07/12/17 Exam Time: 0535 REPORT STATUS: Signed EXAM: CHEST SINGLE (PORTABLE), AP 1 view DATE: 07/12/2017 6:00 AM INDICATION: Pneumonia COMPARISON: 07/10/2017 FINDINGS: LINES/TUBES: Stable right approach PICC and nasal/orogastric tube LUNGS: Lung apices are partially excluded. Low volumes with vascular crowding and bibasilar atelectasis PLEURA: Trace bilateral pleural effusions HEART AND MEDIASTINUM: Stable appearance IMPRESSION: No significant interval change. Signed by: Dr Barbara Gongora MD on 07/12/2017 6:33 AM Dictated By: BARBARA GONGORA MD 2 Transcribed By: LUZ on 07/12/17632 COPY TO: MARZENA SEVERINO MD CHEST SINGLE (PORTABLE) [place] [address] Patient Name: WANDA RIVAS MR #: [id number] : 1935 Age/Sex: 81/F Req #: [id number] Adm Physician: MINDI WHARTON MD Ordered by: MARZENA SEVERINO MD Report #: [id number] Location: ICU Room/Bed: [place] [address] ___ Procedure: [id number] DX/CHEST SINGLE (PORTABLE) Exam Date: 07/10/17 Exam Time: 0535 REPORT STATUS: Signed EXAM: CHEST SINGLE (PORTABLE), AP 1 view DATE: 07/10/2017 5:00 AM Time stamp on exam: 0600 hours INDICATION: Shortness of breath COMPARISON: AP view of the chest July 09, 2017 FINDINGS: LINES/TUBES: Stable right approach PICC and nasal/orogastric tube LUNGS: Low inspiration with vascular crowding and bibasilar atelectasis PLEURA: Trace bilateral pleural effusions HEART AND MEDIASTINUM: Stable appearance BONES AND SOFT TISSUES: No acute findings. IMPRESSION: Trace bilateral pleural effusions, otherwise no significant interval change. Signed by: Dr. Veronique Redman M.D. on 07/10/2017 6:27 AM Dictated By: VERONIQUE REDMAN MD 6 Transcribed By : LUZ on 07/10/17626 COPY TO: MARZENA SEVERINO MD CHEST SINGLE (PORTABLE) [facility] [address] [place] [address] Patient Name: WANDA RIVAS MR #: [id number] : 1935 Age/Sex: 81/F Req #: [id number] Adm Physician: MINDI WHARTON MD Ordered by: VINOD TIM MD Report #: [id number] Location: ICU Room/Bed: ICU [facility] Procedure: [id number] DX/CHEST SINGLE (PORTABLE) Exam Date: 07/09/17 Exam Time: 0500 REPORT STATUS: Signed EXAM: CHEST SINGLE (PORTABLE), AP 1 view DATE: 07/09/2017 5:00 AM Time stamp on exam: 0511 hours INDICATION: Congestive heart failure COMPARISON: AP view of the chest July 08, 2017 FINDINGS: LINES/TUBES : Stable right approach PICC and nasal/orogastric tube. Interval removal of endotracheal tube. LUNGS: Low inspiration with vascular crowding and bibasilar atelectasis PLEURA: No effusions or pneumothorax. HEART AND MEDIASTINUM: Stable appearance given low inspiration BONES AND SOFT TISSUES: No acute findings. IMPRESSION: Interval removal of endotracheal tube, otherwise no significant interval change given low inspiratory effort. Signed by: Dr. Veronique Redman M.D. on 2016 6:45 AM Dictated By: VERONIQUE REDMAN MD 4 Transcribed By: LUZ on 07/09/17644 COPY TO: VINOD TIM MD CHEST SINGLE (PORTABLE) [facility] [address] [place], [place] [address] Patient Name: WANDA RIVAS MR #: [id number] : 1935 Age/Sex: 81/F Req #: [id number] Adm Physician: MINDI WHARTON MD Ordered by: VINOD TIM MD Report #: [id number] Location: ICU Room/Bed: ICU [facility] Procedure: [id number] DX/CHEST SINGLE (PORTABLE) Exam Date: 07/08/17 Exam Time: 0445 REPORT STATUS: Signed EXAM: CHEST SINGLE (PORTABLE), AP 1 view DATE: 07/08/2017 5:00 AM Time stamp on exam: 0455 hours INDICATION: Respiratory failure COMPARISON: AP view of the chest July 07, 2017 at 1243 hours FINDINGS: LINES/ TUBES: * Endotracheal tube terminates 2 cm above the nehemiah * Right approach PICC, stable position * Nasal/orogastric tube terminates in expected location of the body of the stomach LUNGS: Improved aeration of the lungs. PLEURA: No effusions or pneumothorax. HEART AND MEDIASTINUM: Normal size and contour. BONES AND SOFT TISSUES: No acute findings. IMPRESSION: Interval improved aeration of the lungs. Signed by: Dr. Veronique Redman M.D. on 07/08/2017 6:05 AM Dictated By: VERONIQUE REDMAN MD 4 Transcribed By: LUZ on 07/08/17604 COPY TO: VINOD TIM MD CHEST SINGLE (PORTABLE) [address] [address] Patient Name: WANDA RIVAS MR #: [id number] : 1935 Age/Sex: 81/F Req #: [id number] Adm Physician: MINDI WHARTON MD Ordered by: VINOD TIM MD Report #: [id number] Location: ICU Room/Bed: ICU [facility] Procedure: [id number] DX/CHEST SINGLE (PORTABLE) Exam Date: Exam Time: REPORT STATUS: Signed PROCEDURE: CHEST SINGLE (PORTABLE) TECHNIQUE: Portable AP chest INDICATION: Endotracheal tube positioning COMPARISON: [facility], DX, CHEST SINGLE (PORTABLE), 07/07/2017, 8:46. FINDINGS: See conclusion. CONCLUSION: 1. Endotracheal tube tip about 2 cm from the nehemiah. 2. Nasogastric tube tip in the gastric body. 3. Right PICC terminating in the high SVC. 4. Stable right lower lobe airspace opacity consistent with atelectasis with or without pneumonia. 5. Intact skeleton. 6. No interval change from 8:46 AM. Dictated by: Patricio Villalta M.D. on 07/07/2017 at 13:15 Electronically approved by: Patricio Villalta M.D. on 07/07/2017 at 13:15 Dictated By: PATRICIO VILLALTA MD 1315 Transcribed By: LEIGH on 07/07/17 1315 COPY TO: VINOD TIM MD CHEST SINGLE (PORTABLE) [place] [address] Patient Name: WANDA RIVAS MR #: [id number] : 1935 Age/Sex: 81/F Req #: [id number] Adm Physician: MINDI WHARTON MD Ordered by: MINDI WHARTON MD Report #: [id number] Location: ICU Room/Bed: ICU 191- _ Procedure: [id number] DX/CHEST SINGLE (PORTABLE) Exam Date : 07/07/17 Exam Time: 0840 REPORT STATUS: Signed PROCEDURE: CHEST SINGLE (PORTABLE) TECHNIQUE: Portable AP chest INDICATION: Pneumonia COMPARISON: [facility], DX, CHEST XRAY LINE PLACEMENT, 07/06/2017, 20:07. FINDINGS: See conclusion. CONCLUSION: 1. Enteric tube tip in the gastric body. 2. Right PICC terminating in the low SVC. 3. Right middle and lower lobe airspace opacity unchanged from July 06 consistent with pneumonia. No cavitation. 4. No pleural effusions. 5. Stable cardiomediastinal silhouette, with normal heart size. Midline sternotomy wires intact. 6. Grossly intact skeleton. Severe right glenohumeral degenerative change. Dictated by: Patricio Villalta M.D. on 07/07/2017 at 9:24 Electronically approved by: Patricio Villalta M.D. on 07/07/2017 at 9:24 Dictated By: PATRICIO VILLALTA MD 3 Transcribed By: LEIGH on 07/07/17923 COPY TO: MINDI WHARTON MD CHEST XRAY LINE PLACEMENT [place] [address] Patient Name: WANDA RIVAS MR #: [id number] : 1935 Age/Sex: 81/F Req #: [id number] Adm Physician: MINDI WHARTON MD Ordered by: MINDI WHARTON MD Report #: [id number] Location: ICU Room/Bed: ICU 191-1 _ Procedure: [id number] DX/CHEST XRAY LINE PLACEMENT Exam Date: 07/06/17 Exam Time: 2009 REPORT STATUS: Signed A single frontal view of the chest. HISTORY: PICC line insertion COMPARISON: Chest radiograph July 06, 2017 DISCUSSION : Portable technique, limits sensitivity of the exam. Multiple overlying tubes and lines. Tubes/Lines: The endotracheal tube and nasogastric/ orogastric tube appear unchanged. Interval placement of a right upper extremity PICC line, the tip projects at the level of the distal superior vena cava. Lungs and pleura: Low lung volumes result in bibasilar vascular crowding, accentuation of the pulmonary interstitial markings, central pulmonary vasculature, and the cardiac silhouette. Allowing for these limitations, the findings are as follows: Slightly decreased right basilar opacity. Heart and mediastinum: The cardiomediastinal silhouette appears unremarkable. IMPRESSION: Status post placement of a right upper extremity PICC line with the tip at the level of the distal superior vena cava. Signed by: Dr. Kennedy Sheikh D.O., M.M.M. on 07/06/2017 8:39 PM Dictated By: KENNEDY SHEIKH DO 38 Transcribed By: LUZ on 07/06/172038 COPY TO: MINDI WHARTON MD CHEST SINGLE (PORTABLE) [place] [address] Patient Name: WANDA RIVAS MR #: [id number] : 1935 Age/Sex: 81/F Req #: [id number] Adm Physician: MINDI WHARTON MD Ordered by: VINOD TIM MD Report #: [id number] Location: ICU Room/Bed: ICU 191-1 Procedure: [id number] DX/CHEST SINGLE (PORTABLE) Exam Date: 07/06/17 Exam Time: 0500 REPORT STATUS: Signed EXAM: CHEST SINGLE (PORTABLE), AP 1 view DATE: 07/06/2017 5:00 AM Time stamp on exam: 0534 hours INDICATION: Intubated, respiratory failure COMPARISON: AP view of the chest July 05, 2017 FINDINGS: LINES/TUBES : Stable position of endotracheal tube. The nasal/orogastric tube terminates in expected location of the proximal stomach. LUNGS: Bibasilar atelectasis. PLEURA: Layering bilateral pleural effusions. HEART AND MEDIASTINUM: Stable appearance. BONES AND SOFT TISSUES: No acute findings. IMPRESSION: Interval placement of nasal/orogastric tube, otherwise no significant interval change in appearance of the chest. Signed by: Dr. Veronique Redman M.D. on 07/06/2017 6:33 AM Dictated By: VERONIQUE REDMAN MD 2 Transcribed By: LUZ on 07/06/17632 COPY TO: VINOD TIM MD CT ABDOMEN/PELVIS [place] [address] Patient Name: WANDA RIVAS MR #: [id number] : 1935 Age/Sex: 81/F Req #: [id number] Adm Physician: MINDI WHARTON MD Ordered by: FREDI GORMAN MD Report #: [id number] Location: ICU Room/Bed: ICU 191 Procedure: [id number] CT/CT ABDOMEN/PELVIS WO Exam Date: 07/05/17 Exam Time: 1440 REPORT STATUS: Signed PROCEDURE: CT ABDOMEN AND PELVIS WITHOUT CONTRAST TECHNIQUE: The abdomen and pelvis were scanned utilizing a multidetector helical scanner from the diaphragm to the lesser trochanter after the oral administration of water. No IV contrast was administered per protocol. Coronal and sagittal multiplanar reformations were obtained. COMPARISON: None. INDICATIONS: sepsis, stone protocol FINDINGS: ABSENCE OF INTRAVENOUS CONTRAST DECREASES SENSITIVITY FOR DETECTION OF FOCAL LESIONS AND VASCULAR PATHOLOGY. LOWER THORAX: Small bilateral pleural effusions. Right lower lobe consolidation with air bronchograms (series 3, image 5). Mild compressive atelectasis of the left lower lobe. Atherosclerotic calcification of the aortic valve, coronary arteries and likely mitral anulus.. HEPATOBILIARY: Markedly nodular contour of the liver, consistent with cirrhosis. 2 mm calcification in the right hepatic lobe, likely representing a calcified granuloma (series 3, image 57). No other focal lesions. No intrahepatic or extrahepatic biliary ductal dilation. Gallbladder is hydropic. No radiopaque stones. No wall thickening. SPLEEN: No splenomegaly. PANCREAS: Marked fatty replacement of the pancreas and atrophy. No ductal dilation or focal lesion. ADRENALS: No adrenal nodules. KIDNEYS/URETERS : Right: 2-3 mm nonobstructing calculus in the interpolar region (series 3 , image 45). 3-4 mm, nonobstructing calculus in the interpolar region (series 3, image 47). No other renal or any ureteral calculi. No hydronephrosis or obstruction. No renal contour abnormality. Mild surrounding perinephric stranding. Left: No renal or ureteral calculi. No hydronephrosis or obstruction. No renal contour abnormality. Mild perinephric stranding. PELVIC ORGANS/BLADDER: Evaluation of the pelvis is limited by beam hardening artifact from bilateral hip hardware. Dlay catheter in place. Moderate circumferential bladder wall thickening. No definite focal lesions. The uterus is nonvisualized. No adnexal masses. PERITONEUM / RETROPERITONEUM: Small amount of perihepatic and abdominal ascites. Moderate amount of fluid in the pelvis. LYMPH NODES: No lymphadenopathy. VESSELS: Atherosclerotic calcification of the abdominal aorta, iliac vessels and aortic branches. GI TRACT: Moderate diffuse wall thickening involving the cecum, ascending , proximal and distal transverse, and proximal descending colon, with mild surrounding stranding (for example, series 3, image 77 in the hepatic flexure ). No bowel dilation or evidence of obstruction. BONES AND SOFT TISSUES: Marked osteopenia with compression fractures of L1 and L2 status post vertebroplasty changes. Decreased height of the L4 and T12 vertebral bodies, likely representing chronic compression deformities. Bilateral humeral neck and head screws. A right femoral intramedullary carmencita is also noted. Generalized anasarca. Several rounded focal areas of nodularity and stranding in the subcutaneous soft tissues of the anterior lower abdomen/pelvis likely represent injection sites (for example series 3, images 111 and 105).. IMPRESSION: 1. 2 nonobstructing calculi in the right kidney. No ureteral , or bladder calculi. No hydronephrosis or obstruction. 2. Right lower lobe consolidation with air bronchograms, likely reflecting a combination of atelectasis and pneumonia. 3. Small bilateral pleural effusions. 4. Findings in the cecum, ascending, proximal and distal transverse, and proximal descending colon are suspicious for colitis, probably infectious ( particularly if the patient has been on antibiotics). Portal colopathy is also considered. Ischemic colitis is another consideration, it cannot be assessed on this exam given the lack of intravenous contrast. 5. Hydropic gallbladder. No wall thickening or radiopaque stones are identified. 6. Moderate circumferential bladder wall thickening. Correlate for cystitis. 7. Cirrhotic liver. No focal lesions noted in this noncontrast exam. Babatunde Saeed M.D. Dictated by: Babatunde Saeed M.D. on 07/05/2017 at 15:32 Electronically approved by: Babatunde Saeed M.D. on 2016 at 15:32 Dictated By: BABATUNDE SAEED MD 1532 Transcribed By: LEIGH on 1532 COPY TO: FREDI GORMAN MD CHEST [facility] (PORTABLE) [place] [address] Patient Name: WANDA RIVAS MR #: [id number] : 1935 Age/Sex: 81/F Req #: [id number] Adm Physician: MINDI WHARTON MD Ordered by: MINDI WHARTON MD Report #: [id number] Location: ICU Room/Bed: ICU [facility] _ Procedure: [id number] DX/CHEST SINGLE (PORTABLE) Exam Date : 07/05/17 Exam Time: 0550 REPORT STATUS: Signed EXAM: CHEST SINGLE (PORTABLE), AP 1 view DATE: 07/05/2017 5:00 AM Time stamp on exam: O 0559 hours INDICATION: Intubated, pneumonia COMPARISON : AP view of the chest July 03, 2017 FINDINGS: LINES/TUBES: Stable position of endotracheal tube. LUNGS: Vascular congestion and bibasilar atelectasis. PLEURA: Small bilateral layering pleural effusions. HEART AND MEDIASTINUM: Stable appearance. BONES AND SOFT TISSUES: Advanced degenerative changes of the right shoulder. IMPRESSION: No interval change. Signed by: Dr. Veronique Redman M.D. on 07/05/2017 6:59 AM Dictated By: VERONIQUE REDMAN MD 8 Transcribed By: LUZ on 07/05/17658 COPY TO: MINDI WHARTON MD CHEST SINGLE (PORTABLE) [place] [id number] Patient Name: WANDA RIVAS MR #: [id number] : 1935 Age/Sex: 81/F Req #: [id number] Adm Physician: MINDI WHARTON MD Ordered by: SOFIA PATEL MD Report #: [id number] Location: ICU Room/Bed: ICU 191-1 __ Procedure: [id number] DX/CHEST SINGLE (PORTABLE) Exam Date : 07/03/17 Exam Time: 1845 REPORT STATUS: Signed EXAMINATION: Chest, CHEST SINGLE (PORTABLE) INDICATION: Chest pain COMPARISON: None FINDINGS: LINES: Endotracheal catheter is present with the tip projecting over the expected region of the trachea, positioned 2 cm from the nehemiah. Heart: Normal cardiac silhouette. Vascular: The pulmonary vasculature is within normal limits. Atherosclerotic calcifications of the aortic arch. Mediastinum: No mediastinal, hilar, or axillary mass or lymphadenopathy. Lungs: No parenchymal mass. Right lung base airspace opacity. Pleura: Small bilateral pleural effusions. No pneumothorax. Bones: No acute osseous abnormality. Degenerative changes of the thoracic spine. Degenerative changes of the right shoulder. Median sternotomy wires. Soft tissues: Normal. Impression: Right lung base airspace opacity may represent a developing pneumonia. Small bilateral pleural effusions. Signed by: Dr. Mo Del Real M.D. on 07/03/2017 7:03 PM Dictated By: MO DEL REAL MD 02 Transcribed By: LUZ on 07/03/171902 COPY TO: SOFIA PATEL MD CT BRAIN WO [place] [address] Patient Name: WANDA RIVAS MR #: [id number] : 1935 Age/Sex: 81/F Req #: [id number] Adm Physician: MINDI WHARTON MD Ordered by: SOFIA PATEL MD Report #: [id number] Location: ICU Room/Bed: ICU [facility] Procedure: [id number] CT/CT BRAIN WO Exam Date: 07/03/17 Exam Time: 1929 REPORT STATUS: Signed EXAMINATION: Head CT without contrast. HISTORY:Unresponsive. COMPARISON:None. TECHNIQUE: Multidetector axial images were obtained from the foramen magnum to the vertex without contrast. The images were reconstructed using brain and bone algorithms. Thin section brain images were reformatted into coronal and sagittal planes. Intravenous contrast: None IMAGE QUALITY: Suboptimal evaluation due to motion-related streak artifacts. FINDINGS: Skull/scalp: No abnormality. Parenchyma: Nonspecific few, scattered supratentorial white matter patchy hypodensity are likely related to small vessel ischemic changes. No acute hemorrhage, mass or acute major vascular territorial infarct. Arteries: Atherosclerotic calcification in bilateral carotid siphon and V4 segment of the vertebral arteries. Dural sinuses: No abnormal density suggestive of thrombosis. Ventricles: Mild compensated dilatation due to volume loss. No hydrocephalus. Extra- axial spaces: No abnormal density. Brain volume: Generalized age- related cerebral volume loss. Craniocervical junction: No mass, Chiari malformation, or basilar invagination. Sella: No mass. Paranasal/ mastoid sinuses: Imaged portions unremarkable. IMPRESSION: No acute intracranial abnormality, particularly no acute hemorrhage, mass or acute major vascular territorial infarct. Mild supratentorial white matter microvascular ischemic changes. Generalized age-related cerebral volume loss. Signed by: Dr. Kylie James M.D. on 07/03/2017 7:45 PM Dictated By: KYLIE JAMES MD 44 Transcribed By: LUZ on 07/03/171944 COPY TO: SOFIA PATEL MD
--- OUTSIDE RECORDS SUMMARY | 2017-09-22 20:00 | XMS REPORT | Clinical Summary ---
Author Author [facility] Organization [facility] Address Unknown Phone Unavailable Care Team Providers Care Merchant Miller Name Role Phone Sussy Cantu MD PCP Allergies Active Allergy Reactions Severity Noted Date Comments Itraconazole Hives, Swelling High 01/05/2016 Current Medications Prescription Sig. Disp. Refills Start End Date Status Date carvedilol (COREG) 6.25 Take 1 tablet by mouth 2 12/17/19 Active MG tablet (two) times a day. 16 metFORMIN (GLUCOPHAGE) Take 2 tablets by mouth 2 10/22/19 Active 500 MG tablet (two) times a day. 16 nisoldipine (SULAR) 17 MG Take 1 tablet by mouth 10/21/19 Active 24 hr tablet daily. 16 ferrous sulfate 325 (65 Take 1 tablet by mouth 2 Active FE) MG tablet (two) times a day. TOCILIZUMAB (ACTEMRA IV) Infuse into a venous Active catheter every 30 (thirty) days. VIT A/VIT C/VIT Take 1 tablet by mouth 2 Active E/ZINC/COPPER (ICAPS (two) times a day. AREDS ORAL) insulin GLARGINE (LANTUS) Inject 18 Units under the Active 100 unit/mL injection skin daily before breakfast. ergocalciferol Take 50,000 Units by Active (ERGOCALCIFEROL) 50,000 mouth once a week. unit capsule Tuesdays phenazopyridine Take 1 tablet (100 mg 10 tablet 0 01/20/20 Active (PYRIDIUM) 100 MG tablet total) by mouth once as 16 needed for bladder spasms for up to 1 dose. cefpodoxime (VANTIN) 100 Take 100 mg by mouth 2 Active MG tablet (two) times a day. LANTUS SOLOSTAR 100 03/25/20 Active unit/mL (3 mL) insulin 16 pen conjugated estrogens 0.5g in the vagina 3 42.5 g 1 04/07/20 Active (PREMARIN) vaginal times a week 16 creamIndications: Fecal incontinence, Vaginal atrophy, Urethral caruncle trospium 60 mg TAKE ONE CAPSULE (60MG 30 capsule 2 05/03/20 Active capsule,extended release TOTAL) BY MOUTH DAILY 16 24hrIndications: Urge urinary incontinence mirabegron (MYRBETRIQ) 50 Take 1 tablet (50 mg 30 tablet 3 01/28/20 Active mg tablet extended total) by mouth daily. 17 release 24 hr MYRBETRIQ 25 mg tablet TAKE ONE TABLET BY MOUTH 30 tablet 0 09/21/19 10/16/19 Discontin extended release 24 DAILY 17 17 ued hrIndications: Urge urinary incontinence, Detrusor instability MYRBETRIQ 25 mg tablet TAKE ONE TABLET BY MOUTH 30 tablet 0 10/19/19 01/15/20 Discontin extended release 24 DAILY 17 17 ued hrIndications: Urge urinary incontinence, Detrusor instability amoxicillin-pot Take one tab twice a day 14 tablet 0 11/02/19 clavulanate (AUGMENTIN) for 7 days 17 17 875-125 mg per tablet nitrofurantoin, Take one tab starting the 3 capsule 0 11/12/1911/14 macrocrystal-monohydrate, day before the procedure 17 17 (MACROBID) 100 MG capsule , one the day of the procedure and the day after mirabegron (MYRBETRIQ) 25 Take 1 tablet (25 mg 30 tablet 3 01/15/20 01/28/20 Discontin mg tablet extended total) by mouth once 17 17 ued release 24 hrIndications: daily. Urge urinary incontinence, Detrusor instability amoxicillin-pot Take 1 tablet by mouth 2 20 tablet 0 03/07/20 Discontin clavulanate (AUGMENTIN) (two) times a day for 10 17 17 ued 875-125 mg per tablet days. cefpodoxime (VANTIN) 200 Take 1 tablet (200 mg 14 tablet 0 03/09/20 03/16/20 MG tablet total) by mouth 2 (two) 17 17 times a day for 7 days. Active Problems Problem Noted Date Sepsis due to urinary tract infection 01/19/2016 Type 2 diabetes mellitus 01/19/2016 Essential hypertension 01/19/2016 Acute cystitis without hematuria 01/18/2016 Encounters Date Type Specialty Care Team Description 06/04/2017 Emergency Emergency Medicine Diane Iraheta MD 04/20/2017 Telephone Urogynecology Magdalena Zamarripa MD 03/09/2017 Telephone Urogynecology Rowena Manjarrez, BLOCKMAN 03/09/2017 Orders Only Urogynecology Rowena Manjarrez, BLOCKMAN 03/09/2017 Telephone Urogynecology Nishi Manjarrezorah, BLOCKMAN 03/07/2017 Orders Only Urogynecology Rowena Manjarrez, BLOCKMAN Urinary tract infection, site unspecified (Primary Dx) 03/07/2017 Orders Only Urogynecology Rowena Manjarrez, BLOCKMAN 03/07/2017 Telephone Urogynecology Magdalena Zamarripa MD 02/18/2017 Telephone Obstetrics and Gynecology Magdalena Zamarripa MD 01/27/2017 Orders Only Urogynecology Rowena Manjarrez, BLOCKMAN 01/25/2017 Orders Only Urogynecology Rowena Manjarrez, BLOCKMAN Urinary tract infection without hematuria, site unspecified (Primary Dx) 01/25/2017 Telephone UrogynecologMagdalena Macario MD 01/14/2017 Telephone Urogynecology Rowena Manjarrez, BLOCKMAN 01/14/2017 Orders Only Urogynecology Rowena Manjarrez, BLOCKMAN Urge urinary incontinence; Detrusor instability 01/14/2017 Telephone Obstetrics and Gynecology Magdalena Zamarripa MD 01/08/2017 Refill Urogynecology Magdalena Zamarripa urinary MD Ze incontinence; Detrusor instability 12/29/2016 Telephone Obstetrics and Gynecology Magdalena Zamarripa MD 12/22/2016 Telephone Urogynecology Magdalena Zamarripa MD 12/01/2016 Orders Only Urogynecology Natasha Leger MA Recurrent urinary tract infection (Primary Dx) 12/01/2016 Telephone Obstetrics and Gynecology Magdalena Zamarripa MD 11/22/2016 Telephone Obstetrics and Gynecology Magdalena Zamarripa MD 11/11/2016 Orders Only Urogynecology Rowena Manjarrez, BLOCKMAN 11/11/2016 Telephone Urogynecology Rowena Manjarrez, BLOCKMAN 11/03/2016 Telephone Urogynecology Ni Carlos LVN Urinary tract infection, site unspecified (Primary Dx) 11/01/2016 Orders Only Urogynecology Rowena Manjarrez, BLOCKMAN 11/01/2016 Orders Only Urogynecology Rowena Manjarrez, BLOCKMAN Urinary tract infection without hematuria, site unspecified (Primary Dx) 11/01/2016 Telephone Obstetrics and Gynecology Magdalena Zamarripa MD 10/15/2016 Refill Urogynecology Magdalena Zamarripa urinary MD Ze incontinence; Detrusor instability 10/03/2016 Documentation Urogynecology Jaylen Tee MD Urinary Tract Infection after 09/21/2016 Family History Medical History Relation Name Comments Diabetes Father complications Hypertension Father Diabetes Mother complications Relation Name Status Comments Brother Father (Age 80) Mother (Age 82) Social History Tobacco Use Types Packs/Day Years Used Date Never Smoker Smokeless Tobacco: Never Used Alcohol Use Drinks/Week oz/Week Comments No Sex Assigned at Date Recorded Not on file Last Filed Vital Signs Vital Sign Reading Time Taken Blood Pressure 177/77 06/04/2017 2:32 PM ACID TANK LINER Pulse 90 06/04/2017 2:32 PM ACID TANK LINER Temperature 36.7 C (98 F) 06/04/2017 2:32 PM ACID TANK LINER Respiratory Rate 18 06/04/2017 2:32 PM ACID TANK LINER Oxygen Saturation 96% 06/04/2017 2:32 PM ACID TANK LINER Inhaled Oxygen - - Concentration Weight - - Height 147.3 cm (4' 10") 06/04/2017 2:32 PM ACID TANK LINER Body Mass Index - - Plan of Treatment Health Maintenance Due Date Last Done Comments FOOT EXAM 1945 OPHTHALMOLOGY EXAM 1945 URINE MICROALBUMIN 1944 ZOSTER VACCINE 1994 PNEUMOCOCCAL 1999 POLYSACCHARIDE VACCINE AGE 65 AND OVER PNEUMOCOCCAL-13 1999 INFLUENZA VACCINE 02/15/2017 Implants Implanted Type Area Assistant Warehouse Manager Device Expiration Model / Identifier Date Serial / Lot Aortic Valve Valve Results * Urine culture (03/07/2017 11:53 AM) Only the most recent of 3 results within the time period is included. Component Value Ref Range Urine culture Proteus mirabilis 10,000-25,000 colony forming units per mL (A) Specimen Performing Laboratory [facility]rine [facility] Narrative Performed at:[address] [place], [place] [id number] Roadability Machine Operator: Horacio Allen MD, Phone:[phone] Organism Antibiotic Method Susceptibility Proteus mirabilis Ampicillin R: Resistant Proteus mirabilis Cefazolin R: Resistant Proteus mirabilis Cefepime S: Susceptible Proteus mirabilis Ceftriaxone S: Susceptible Proteus mirabilis Cefuroxime I: Intermediate Proteus mirabilis Cephalothin R: Resistant Proteus mirabilis Ciprofloxacin R: Resistant Proteus mirabilis Ertapenem S: Susceptible Proteus mirabilis Gentamicin S: Susceptible Proteus mirabilis Levofloxacin R: Resistant Proteus mirabilis Nitrofurantoin R: Resistant Proteus mirabilis Piperacillin R: Resistant Proteus mirabilis Tetracycline R: Resistant Proteus mirabilis Tobramycin I: Intermediate Proteus mirabilis Trimethoprim/Sulfamethoxa R: Resistant zole Comment: Performed at: [address] [place] [id number] Roadability Machine Operator: Horacio Allen MD, Phone: [phone] * Microscopic Examination (11/01/2016 3:57 PM) Component Value Ref Range WBC, UA >30 (A)Comment: Clumps of leukocytes present. 0 - 5 /hpf RBC, UA 11-30 (A) 0 - 2 /hpf Epithelial cells (non 0-10 0 - 10 /hpf renal) Bacteria, UA Moderate (A) None seen/Few Specimen Performing Laboratory [facility] Narrative Performed at:[address] [place], [place] [id number] Roadability Machine Operator: Horacio Allen MD, Phone:[phone] * Urinalysis, automated with microscopy (11/01/2016 3:57 PM) Component Value Ref Range Specific gravity, urine Note:Comment: Unable to read or assay due to color 1.005 - 1.030 interference. pH, urine CANCELED Comment: Test not performed Result canceled by the ancillary Color, UA [place] Yellow Appearance Cloudy (A) Clear Protein, UA CANCELED Comment: Test not performed Result canceled by the ancillary Glucose, urine CANCELED Comment: Test not performed Result canceled by the ancillary Ketones, UA CANCELED Comment: Test not performed Result canceled by the ancillary Microscopic examination CommentComment: Microscopic follows if indicated. Microscopic examination See below:Comment: Microscopic was indicated and was performed. Specimen Performing Laboratory [facility]rine [facility] Narrative Performed at: [facility] [id number] Roadability Machine Operator: Horacio Allen MD, Phone:[phone] after 09/21/2016 Insurance Payer Benefit Subscriber ID Type Phone Address Plan / Group MEDICARE MEDICARE xxxxxxxxxx Medicare [place], [place] PART A AND B COMMERCIAL MISC MISC xxxxxxxxxx Commercial COMMERCIAL
[2017-09-22 21:21] LABS: BASOPHILS # (AUTO) 0.1 (0.0-0.1); BASOPHILS % 0.6 % (0.0-1.0); EOSINOPHILS # (AUTO) 0.1 (0.0-0.4); EOSINOPHILS % 1.2 % (0.0-6.0); HEMATOCRIT 36.4 % (34.2-44.1); HEMOGLOBIN 11.9 g/dL (12.0-16.0); LYMPHOCYTES # (AUTO) 3.4 (1.0-3.2); LYMPHOCYTES % 28.5 % (18.0-39.1); MEAN CORPUSCULAR HEMOGLOBIN 31.6 pg (28-32); MEAN CORPUSCULAR HGB CONC 32.7 g/dL (31-35); MEAN CORPUSCULAR VOLUME 96.6 fL (81-99); MONOCYTES # (AUTO) 1.4 (0.2-0.8); MONOCYTES % 11.9 % (4.4-11.3); NEUTROPHILS # (AUTO) 6.5 (2.1-6.9); NEUTROPHILS % 53.7 % (38.7-80.0); PLATELET COUNT 202 x10e3/uL (140-360); RED BLOOD COUNT 3.77 x10e6/uL (3.6-5.1); RED CELL DISTRIBUTION WIDTH 15.9 % (11.7-14.4)
[2017-09-22 21:28] LABS: INR 1.52; PROTHROMBIN TIME 17.2 seconds (11.9-14.5)
[2017-09-22 21:29] LABS: PARTIAL THROMBOPLASTIN TIME 31.5 seconds (23.8-35.5)
[2017-09-22 21:38] LABS: ALBUMIN 3.1 g/dL (3.5-5.0); ALBUMIN/GLOBULIN RATIO 0.5 (0.8-2.0); ANION GAP 22.3 mmol/L (8-16); CALCIUM 9.6 mg/dL (8.4-10.2); CREATININE, SERUM 1.72 mg/dL (0.57-1.11); POTASSIUM 4.3 mmol/L (3.5-5.1)
[2017-09-22 21:58] LABS: BILIRUBIN,URINE NEGATIVE (NEGATIVE); CLARITY,URINE HAZY (CLEAR); COLOR,URINE YELLOW (YELLOW); KETONES,URINE NEGATIVE (NEGATIVE); LEUKOCYTE ESTERASE ,URINE 2+ (NEGATIVE); NITRITE,URINE POSITIVE (NEGATIVE); PROTEIN,URINE DIPSTICK 2+ (NEGATIVE); URINE UROBILINOGEN 0.2 mg/dL (0.2 - 1)
[2017-09-22 22:10] LABS: BACTERIA,URINE MODERATE /HPF; EPITHELIAL CELLS,URINE RARE /LPF
[2017-09-22 22:11] LABS: TRIPLE PHOSPHATE CRYSTAL,UR MODERATE (FEW)
[2017-09-22 22:15] LABS: LYMPHOCYTES % (MANUAL) 25 % (19-48); MONOCYTES % (MANUAL) 13 % (3.4-9.0); NEUTROPHILS % (MANUAL) 62 % (40-74)
[2017-09-22 22:16] LABS: PLATELET ESTIMATE ADEQUATE; PLATELET MORPHOLOGY COMMENT NORMAL; RBC MORPHOLOGY COMMENT NORMAL
[2017-09-22] MEDS ORDERED: ONDANSETRON HCL INJ 2 MG/ML VIAL IV PRN (22:45)
--- OUTSIDE RECORDS SUMMARY | 2017-09-22 22:58 | XMS REPORT | Clinical Summary ---
Author Author [facility] Organization [facility] Address Unknown Phone Unavailable Care Team Providers Care Buildings And Grounds Supervisor Name Role Phone Sussy Cantu MD PCP [...] Zamarripa MD 03/09/2017 Telephone Urogynecology Rowena Manjarrez, EXHIBITION DESIGNER 03/09/2017 Orders Only Urogynecology Rowena Manjarrez, EXHIBITION DESIGNER 03/09/2017 Telephone Urogynecology Nishi Manjarrezorah, EXHIBITION DESIGNER 03/07/2017 Orders Only Urogynecology Rowena Manjarrez, EXHIBITION DESIGNER Urinary tract infection, site unspecified (Primary Dx) 03/07/2017 Orders Only Urogynecology Rowena Manjarrez, EXHIBITION DESIGNER 03/07/2017 Telephone Urogynecology Magdalena Zamarripa MD 02/18/2017 Telephone Obstetrics and Gynecology Magdalena Zamarripa MD 01/27/2017 Orders Only Urogynecology Rowena Manjarrez, EXHIBITION DESIGNER 01/25/2017 Orders Only Urogynecology Rowena Manjarrez, EXHIBITION DESIGNER Urinary tract infection without hematuria, site unspecified (Primary Dx) 01/25/2017 Telephone UrogynecologMagdalena Macario MD 01/14/2017 Telephone Urogynecology Rowena Manjarrez, EXHIBITION DESIGNER 01/14/2017 Orders Only Urogynecology Rowena Manjarrez, EXHIBITION DESIGNER Urge urinary incontinence; Detrusor instability 01/14/2017 Telephone [...] MD 11/11/2016 Orders Only Urogynecology Rowena Manjarrez, EXHIBITION DESIGNER 11/11/2016 Telephone Urogynecology Rowena Manjarrez, EXHIBITION DESIGNER 11/03/2016 Telephone Urogynecology Ni Carlos LVN Urinary tract infection, site unspecified (Primary Dx) 11/01/2016 Orders Only Urogynecology Rowena Manjarrez, EXHIBITION DESIGNER 11/01/2016 Orders Only Urogynecology Rowena Manjarrez, EXHIBITION DESIGNER Urinary tract infection without hematuria, site unspecified [...] Taken Blood Pressure 177/77 06/04/2017 2:32 PM BRICK EXTRUDER OPERATOR Pulse 90 06/04/2017 2:32 PM BRICK EXTRUDER OPERATOR Temperature 36.7 C (98 F) 06/04/2017 2:32 PM BRICK EXTRUDER OPERATOR Respiratory Rate 18 06/04/2017 2:32 PM BRICK EXTRUDER OPERATOR Oxygen Saturation 96% 06/04/2017 2:32 PM BRICK EXTRUDER OPERATOR Inhaled Oxygen - - Concentration Weight - - Height 147.3 cm (4' 10") 06/04/2017 2:32 PM BRICK EXTRUDER OPERATOR Body Mass Index - - Plan of Treatment Health Maintenance Due Date Last Done Comments FOOT EXAM 1944 OPHTHALMOLOGY EXAM 1944 URINE MICROALBUMIN 1944 ZOSTER VACCINE 1994 PNEUMOCOCCAL 1999 POLYSACCHARIDE VACCINE AGE 65 AND OVER PNEUMOCOCCAL-13 1999 INFLUENZA VACCINE 02/15/2017 Implants Implanted Type Area Manager Motor Device Expiration Model / Identifier Date Serial / Lot Aortic Valve Valve Results * Urine culture (03/07/2017 11:53 AM) Only the most recent of 3 results within the time period is included. Component Value Ref Range Urine culture Proteus mirabilis 10,000-25,000 colony forming units per mL (A) Specimen Performing Laboratory [facility] Narrative Performed at:[address] [place], [place] [id number] Catechist: Horacio Allen MD, Phone:[phone] Organism Antibiotic Method Susceptibility Proteus mirabilis Ampicillin [...] Trimethoprim/Sulfamethoxa R: Resistant zole Comment: Performed at: [address] [place] [id number] Catechist: Horacio Allen MD, Phone: [phone] * Microscopic Examination (11/01/2016 3:57 PM) Component Value Ref Range WBC, UA >30 (A)Comment: Clumps of leukocytes present. 0 - 5 /hpf RBC, UA 11-30 (A) 0 - 2 /hpf Epithelial cells (non 0-10 0 - 10 /hpf renal) Bacteria, UA Moderate (A) None seen/Few Specimen Performing Laboratory [facility] Narrative Performed at:[address] [place], [place] [id number] Catechist: Horacio Allen MD, Phone:[phone] * Urinalysis, automated with microscopy (11/01/2016 3:57 PM) Component Value Ref Range Specific gravity, urine Note:Comment: Unable to read or assay due to color 1.005 - 1.030 interference. pH, urine CANCELED Comment: Test not performed Result canceled by the ancillary Color, UA [place] Yellow Appearance Cloudy (A) Clear Protein, UA [...] Laboratory [facility] Narrative Performed at: [facility] [id number] Catechist: Horacio Allen MD, Phone:[phone] after 09/21/2016 Insurance Payer Benefit Subscriber ID Type Phone Address Plan / Group MEDICARE MEDICARE xxxxxxxxxx Medicare [place], [place] PART A AND B COMMERCIAL MISC MISC xxxxxxxxxx Commercial COMMERCIAL
--- NOTE | 2017-09-22 23:03 | Diagnostic Imaging Report ---
EXAMINATION: CHEST SINGLE (PORTABLE) INDICATION: Shortness of breath COMPARISON: 07/16/2017 FINDINGS: TUBES and LINES: None. LUNGS: Lungs are not well inflated. Lungs are clear. There is no evidence of pneumonia or pulmonary edema. PLEURA: No pleural effusion or pneumothorax. HEART AND MEDIASTINUM: The cardiomediastinal silhouette is unremarkable. There are atherosclerotic calcifications within the aorta. Midline sternotomy wires are intact BONES AND SOFT TISSUES: No acute osseous lesion. Soft tissues are unremarkable. UPPER ABDOMEN: No free air under the diaphragm. IMPRESSION: No acute thoracic abnormality. Signed by: Dr. Clive Cabrera M.D. on 09/22/2017 10:59 PM
[2017-09-22] MEDS ORDERED: SODIUM CHLORIDE 0.9% 1000ML 1,000 ML ONE (23:12)
[2017-09-22] MEDS: CEFTRIAXONE SOD 1 GM VIAL IV SCH (23:17)
[2017-09-22] MEDS: SODIUM CHLORIDE 0.9% 1000ML 1,000 ML IV SCH (23:18)
[2017-09-23] VITALS (7 sets, daily range): BP systolic 107–141; BP diastolic 49–64
[2017-09-23] MEDS ORDERED: LORAZEPAM INJ 2 MG/ML VIAL IV ONE (00:45)
[2017-09-23] MEDS: VANCOMYCIN 250MG/5ML ORAL SOLN GT SCH ×4 (01:13→17:17)
[2017-09-23] MEDS: METRONIDAZOLE 500MG/NS 100ML 100 ML IV SCH ×4 (01:13→17:17)
[2017-09-23] MEDS: SODIUM CHLORIDE 0.9% 1000ML 1,000 ML IV SCH ×2 (02:40→13:27)
[2017-09-23] MEDS ORDERED: LASIX40 MG PO (04:43)
[2017-09-23] MEDS ORDERED: ZOFRAN ODT4 MG (04:53)
[2017-09-23] MEDS ORDERED: ULTRAM50 MG PO (04:53)
[2017-09-23] MEDS ORDERED: LEVOTHYROXINE100 MC1 IV (05:00)
[2017-09-23 07:20] LABS: BASOPHILS # (AUTO) 0.1 (0.0-0.1); BASOPHILS % 0.5 % (0.0-1.0); EOSINOPHILS # (AUTO) 0.1 (0.0-0.4); EOSINOPHILS % 1.2 % (0.0-6.0); HEMATOCRIT 31.5 % (34.2-44.1); HEMOGLOBIN 10.1 g/dL (12.0-16.0); LYMPHOCYTES # (AUTO) 2.5 (1.0-3.2); LYMPHOCYTES % 27.9 % (18.0-39.1); MEAN CORPUSCULAR HEMOGLOBIN 31.4 pg (28-32); MEAN CORPUSCULAR HGB CONC 32.1 g/dL (31-35); MEAN CORPUSCULAR VOLUME 97.8 fL (81-99); MONOCYTES # (AUTO) 1.1 (0.2-0.8); MONOCYTES % 12.2 % (4.4-11.3); NEUTROPHILS # (AUTO) 5.1 (2.1-6.9); NEUTROPHILS % 55.6 % (38.7-80.0); PLATELET COUNT 179 x10e3/uL (140-360); RED BLOOD COUNT 3.22 x10e6/uL (3.6-5.1); RED CELL DISTRIBUTION WIDTH 15.9 % (11.7-14.4)
[2017-09-23] MEDS: INSULIN REGULAR, HUMAN 100 UNIT/1 ML 3ML VIAL SQ SCH ×4 (07:30→21:18)
[2017-09-23 07:50] LABS: ALBUMIN 2.6 g/dL (3.5-5.0); ALBUMIN/GLOBULIN RATIO 0.5 (0.8-2.0); ANION GAP 17.6 mmol/L (8-16); CREATININE, SERUM 1.56 mg/dL (0.57-1.11); POTASSIUM 3.6 mmol/L (3.5-5.1)
[2017-09-23] MEDS ORDERED: [UNRECOGNIZED DRUG - OTHER] PO SCH (09:00)
[2017-09-23] MEDS ORDERED: NYSTATIN 15 GM POWDER UD BTL TOP SCH (09:00)
[2017-09-23] MEDS: METOPROLOL TARTRATE 25 MG TAB PO SCH ×2 (09:52→17:16)
[2017-09-23] MEDS: HALOPERIDOL LACTATE 5 MG/ML VIAL IV PRN (09:52)
[2017-09-23] MEDS: MODAFINIL 100 MG TAB PO SCH (09:52)
[2017-09-23] MEDS: FAMOTIDINE 20 MG TAB NG SCH ×2 (09:52→21:17)
[2017-09-23] MEDS: MULTIVITAMINS/MINERALS TAB PO SCH (09:52)
[2017-09-23] MEDS: OYST-CAL-D 500MG TABLET PO SCH ×2 (09:52→17:16)
[2017-09-23] MEDS: AMIODARONE HCL 200 MG TAB PO SCH ×2 (09:52→17:16)
[2017-09-23] MEDS: ZINC SULFATE 220 MG CAP PEG SCH ×2 (09:52→17:16)
[2017-09-23] MEDS: LACTOBACILLUS ACIDOPHILUS CAPSULE PO SCH ×2 (09:52→17:16)
[2017-09-23] MEDS: MAGNESIUM OXIDE 400 MG TAB PEG SCH ×2 (09:52→17:16)
[2017-09-23] MEDS: ASCORBIC ACID 500 MG TAB PO SCH ×2 (09:52→17:16)
[2017-09-23] MEDS: BALSAM PERU/CASTOR OIL 60 GM OINT...G. TP SCH ×2 (09:52→18:50)
[2017-09-23] MEDS ORDERED: ACETAMINOPHEN/CODEINE 300MG - 30MG TAB PO PRN (10:30)
[2017-09-23] MEDS ORDERED: HYDRALAZINE HCL 20 MG/ML VIAL IV PRN (10:30)
[2017-09-23 15:51] LABS: OCCULT BLOOD STOOL NEGATIVE (NEGATIVE)
--- NOTE | 2017-09-23 16:57 | History and Physical ---
PRIMARY CARE PROVIDER: Unknown. The patient has [facility] a [facility]. CHIEF COMPLAINT: Rectal bleeding. HISTORY OF PRESENT ILLNESS: Ms. Feldman is an 82-year-old lady who was sent from [facility] with rectal bleeding and evidence of C. diff colitis on her labs at the penitentiary. REVIEW OF SYSTEMS: Unable to obtain due to dementia. PAST MEDICAL HISTORY: Significant for hypertension, coronary artery disease, aortic stenosis, type 2 diabetes, frequent UTIs, paroxysmal atrial fibrillation. The patient's current medications include: Amiodarone 200 mg twice a day. Vitamin C 500 mg twice a day. Calcium carbonate with vitamin D 500 mg twice a day. Pepcid 20 mg twice a day. Magnesium oxide 400 mg twice a day. Metoprolol 25 mg twice a day. Provigil 200 mg daily. Multivitamin daily. Nystatin powder daily. Xarelto 20 mg daily. Zinc sulfate 220 mg twice daily. Lactobacillus daily. She is on Levemir 20 units twice a day. Albuterol nebulizer treatments. Tylenol as needed. Levothyroxine 100 mcg daily. Regular insulin on a sliding scale. Lasix 40 mg daily. SHE HAS A STATED ALLERGY TO ITRACONAZOLE. FAMILY HISTORY: Significant for hypertension and diabetes. SOCIAL HISTORY: The patient is . [place] Islander is her primary language. She does not smoke, drink or use illegal drugs. She is currently residing in a penitentiary and requires assistance with most of all activities of daily living. PHYSICAL EXAM: PSYCHIATRIC: The patient is sleeping. She is arousable, a little bit lethargic, completely disoriented and confused. She is in no acute distress. VITAL SIGNS: Blood pressure 121/58. Pulse 57 and regular. Respiratory rate 16. O2 sat 99% on room air. Temperature 95.4. Her BMI is 22.98. HEENT: Her head is atraumatic. Her eyes are anicteric with clear conjunctivae. Ears and nares are without erythema or discharge. Oropharynx is clear. NECK: Is supple with no mass or thyromegaly. LYMPHATIC SYSTEM: She has no palpable cervical, axillary or inguinal adenopathy. CARDIOVASCULAR: Her heart has a regular rate and rhythm without murmur or extra heart sound. She has no carotid bruit. She has no peripheral edema. She has weak dorsal pedal pulses. RESPIRATORY: Lungs are clear to auscultation and percussion with normal respiratory effort. GASTROINTESTINAL: Her abdomen is soft without organomegaly, masses or tenderness. She has normal bowel sounds present. CUTANEOUS: Her skin is warm and dry to the touch. She has some scattered skin tears on her elbows, some scattered ecchymosis on the upper arms. MUSCULOSKELETAL: Her joints are in normal alignment without erythema or swelling. She has no calf tenderness. NEUROLOGIC: Exam is nonfocal with intact cranial nerves and no motor or sensory deficits. The patient has senile dementia. DIAGNOSTIC STUDIES: Chest x-ray shows no acute disease. Her UA shows 10 to 20 white cells, 6 to 10 red cells, and moderate bacteria. CBC shows a white count of 9.12 with a normal differential. Hemoglobin 10.1, hematocrit 31.5, and platelet count 179,000. Her chemistry shows normal electrolytes. CO2 18. Creatinine 1.72, BUN 100 for a GFR of 28. Her normal is between 30 and 40. Glucose is 144. Calcium 9.6. After hydration, electrolytes were normal. CO2 was 17. Creatinine 1.56, BUN 93 for a GFR of 32. Calcium 9.0. Glucose 238. Amylase is 47. Lipase is 65. Transaminases slightly elevated, an AST of 43. The ALT of 33 and bilirubin of 0.4 are normal. Alk phos is elevated at 430. Her pro time is 17.2 for an INR of 1.52, PTT 31.5. IMPRESSION AND PLAN: 1. Urinary tract infection. The patient has been started on IV Rocephin empirically pending urine culture report. 2. Clostridium difficile colitis. The patient has been started on IV Flagyl, p.o. vancomycin, and a confirmation C. diff test is ordered. 3. Hypertension with coronary artery disease and a history of CABG with chronic kidney disease stage 3. The patient will continue on metoprolol. 4. Paroxysmal atrial fibrillation. The patient is currently in normal sinus rhythm. Will continue the amiodarone, metoprolol and Xarelto. 5. Type 2 diabetes with chronic kidney disease stage 3. Will continue Levemir as well as sliding-scale insulin. 6. For prophylaxis, the patient is on Xarelto for stroke and DVT prophylaxis and Pepcid for GI prophylaxis. Job#: [id number] EV
[2017-09-23] MEDS: RIVAROXABAN 20 MG TABLET PO SCH (17:16)
[2017-09-23] MEDS: NYSTATIN/TRIAMCINOLONE 15 GM CR TOP SCH (18:50)
[2017-09-23] MEDS: NYSTATIN 15 GM POWDER UD BTL TOP SCH (18:50)
[2017-09-23] MEDS: ACETAMINOPHEN/CODEINE ELIX 120-12 MG/5 ML UDC NG PRN (21:17)
[2017-09-23] MEDS: INSULIN DETEMIR 100 UNIT/ML PEN SQ SCH (21:18)
[2017-09-23] MEDS: CEFTRIAXONE SOD 1 GM VIAL IV SCH (23:08)
[2017-09-24] VITALS (9 sets, daily range): BP systolic 86–131; BP diastolic 48–68
[2017-09-24] MEDS: VANCOMYCIN 250MG/5ML ORAL SOLN GT SCH ×4 (01:21→17:17)
[2017-09-24] MEDS: METRONIDAZOLE 500MG/NS 100ML 100 ML IV SCH ×4 (01:21→17:17)
[2017-09-24] MEDS: ACETAMINOPHEN/CODEINE ELIX 120-12 MG/5 ML UDC NG PRN ×2 (02:40→12:18)
[2017-09-24] MEDS: INSULIN REGULAR, HUMAN 100 UNIT/1 ML 3ML VIAL SQ SCH ×4 (07:30→20:51)
[2017-09-24] MEDS: NYSTATIN/TRIAMCINOLONE 15 GM CR TOP SCH ×2 (07:50→17:16)
[2017-09-24] MEDS: BALSAM PERU/CASTOR OIL 60 GM OINT...G. TP SCH ×2 (07:50→17:16)
[2017-09-24] MEDS: NYSTATIN 15 GM POWDER UD BTL TOP SCH ×2 (07:50→17:16)
[2017-09-24 08:14] LABS: HEMATOCRIT 32.8 % (34.2-44.1); HEMOGLOBIN 9.9 g/dL (12.0-16.0); MEAN CORPUSCULAR HEMOGLOBIN 31.2 pg (28-32); MEAN CORPUSCULAR HGB CONC 30.2 g/dL (31-35); MEAN CORPUSCULAR VOLUME 103.5 fL (81-99); PLATELET COUNT 142 x10e3/uL (140-360); RED BLOOD COUNT 3.17 x10e6/uL (3.6-5.1); RED CELL DISTRIBUTION WIDTH 16.1 % (11.7-14.4)
[2017-09-24 08:23] LABS: ANION GAP 12.9 mmol/L (8-16); CALCIUM 8.3 mg/dL (8.4-10.2); CREATININE, SERUM 1.05 mg/dL (0.57-1.11); MAGNESIUM 1.9 MG/DL (1.3-2.1); POTASSIUM 3.9 mmol/L (3.5-5.1)
[2017-09-24 09:12] LABS: ANISOCYTOSIS SLIGHT; BAND NEUTROPHILS % (MANUAL) 2 %; EOSINOPHILS % (MANUAL) 1 % (0-7); LYMPHOCYTES % (MANUAL) 19 % (19-48); MONOCYTES % (MANUAL) 1 % (3.4-9.0); NEUTROPHILS % (MANUAL) 77 % (40-74); PLATELET ESTIMATE ADEQUATE; PLATELET MORPHOLOGY COMMENT NORMAL; RBC MORPHOLOGY COMMENT ABNORMAL
[2017-09-24] MEDS: MAGNESIUM OXIDE 400 MG TAB PEG SCH ×2 (09:38→17:17)
[2017-09-24] MEDS: AMIODARONE HCL 200 MG TAB PO SCH ×2 (09:38→17:16)
[2017-09-24] MEDS: ZINC SULFATE 220 MG CAP PEG SCH ×2 (09:38→17:16)
[2017-09-24] MEDS: HALOPERIDOL LACTATE 5 MG/ML VIAL IV PRN (09:38)
[2017-09-24] MEDS: FAMOTIDINE 20 MG TAB NG SCH ×2 (09:38→20:51)
[2017-09-24] MEDS: LEVOTHYROXINE SODIUM 100 MCG TAB PO SCH (09:39)
[2017-09-24] MEDS: MODAFINIL 100 MG TAB PO SCH (09:39)
[2017-09-24] MEDS: LACTOBACILLUS ACIDOPHILUS CAPSULE PO SCH ×2 (09:39→17:16)
[2017-09-24] MEDS: ASCORBIC ACID 500 MG TAB PO SCH ×2 (09:39→17:16)
[2017-09-24] MEDS: OYST-CAL-D 500MG TABLET PO SCH ×2 (09:39→17:16)
[2017-09-24] MEDS: METOPROLOL TARTRATE 25 MG TAB PO SCH ×2 (09:39→17:16)
[2017-09-24] MEDS: MULTIVITAMINS/MINERALS TAB PO SCH (09:39)
[2017-09-24] MEDS: INSULIN DETEMIR 100 UNIT/ML PEN SQ SCH ×2 (09:40→20:51)
--- NOTE | 2017-09-24 11:29 | Diagnostic Imaging Report ---
EXAMINATION: CHEST XRAY LINE PLACEMENT INDICATION: \S\stat port. cxr s/p picc line \[id number] \S\1105 \S\Y COMPARISON: 09/22/2017 FINDINGS: AP view TUBES and LINES: New left PICC in place with tip overlying inferior SVC. LUNGS: Low lung volumes. Central vascular congestion and mild interstitial edema. PLEURA: No significant pleural effusion or pneumothorax. HEART AND MEDIASTINUM: Enlarged cardiomediastinal silhouette on this AP view. Median sternotomy wires. BONES AND SOFT TISSUES: Severe degenerative changes of the right shoulder. Evidence of upper lumbar vertebroplasty. Soft tissues are unremarkable. UPPER ABDOMEN: No free air under the diaphragm. IMPRESSION: Left PICC in place with tip overlying inferior SVC. No visible pneumothorax. Central vascular congestion and mild interstitial edema. Underlying infiltrate in the perihilar regions cannot be excluded. Signed by: Dr. Luis Nagel MD on 09/24/2017 11:25 AM
[2017-09-24] MEDS: GABAPENTIN 300 MG CAP PO SCH ×2 (12:18→20:51)
[2017-09-24 14:51] LABS: C DIFFICILE TOXIN A&B AMP PROB **INVALID** (NEGATIVE)
[2017-09-24] MEDS: RIVAROXABAN 20 MG TABLET PO SCH (17:16)
[2017-09-24] MEDS: DEXTROSE 50% SYRINGE 50 ML IV PRN (20:52)
[2017-09-24] MEDS: CEFTRIAXONE SOD 1 GM VIAL IV SCH (20:52)
[2017-09-25] VITALS (10 sets, daily range): BP systolic 92–150; BP diastolic 46–57
[2017-09-25] MEDS: BALSAM PERU/CASTOR OIL 60 GM OINT...G. TP SCH ×2 (01:47→09:05)
[2017-09-25] MEDS: NYSTATIN/TRIAMCINOLONE 15 GM CR TOP SCH ×2 (01:47→09:05)
[2017-09-25] MEDS: METRONIDAZOLE 500MG/NS 100ML 100 ML IV SCH ×3 (06:00→12:22)
[2017-09-25] MEDS: VANCOMYCIN 250MG/5ML ORAL SOLN GT SCH ×3 (06:00→12:22)
[2017-09-25] MEDS: INSULIN REGULAR, HUMAN 100 UNIT/1 ML 3ML VIAL SQ SCH ×4 (07:30→20:26)
[2017-09-25] MEDS ORDERED: MODAFINIL 100 MG TAB PO SCH (09:00)
[2017-09-25] MEDS: METOPROLOL TARTRATE 25 MG TAB PO SCH ×2 (09:00→17:00)
[2017-09-25] MEDS: NYSTATIN 15 GM POWDER UD BTL TOP SCH ×2 (09:05→17:44)
[2017-09-25] MEDS: FAMOTIDINE 20 MG TAB NG SCH ×2 (09:20→21:00)
[2017-09-25] MEDS: ZINC SULFATE 220 MG CAP PEG SCH ×2 (09:20→17:44)
[2017-09-25] MEDS: OYST-CAL-D 500MG TABLET PO SCH ×2 (09:20→17:44)
[2017-09-25] MEDS: LACTOBACILLUS ACIDOPHILUS CAPSULE PO SCH ×2 (09:20→17:44)
[2017-09-25] MEDS: MULTIVITAMINS/MINERALS TAB PO SCH (09:20)
[2017-09-25] MEDS: MAGNESIUM OXIDE 400 MG TAB PEG SCH ×2 (09:20→17:44)
[2017-09-25] MEDS: AMIODARONE HCL 200 MG TAB PO SCH ×2 (09:20→17:44)
[2017-09-25] MEDS: GABAPENTIN 300 MG CAP PO SCH ×3 (09:20→21:00)
[2017-09-25] MEDS: ASCORBIC ACID 500 MG TAB PO SCH ×2 (09:20→17:44)
[2017-09-25] MEDS: LEVOTHYROXINE SODIUM 100 MCG TAB PO SCH (09:20)
[2017-09-25] MEDS: INSULIN DETEMIR 100 UNIT/ML PEN SQ SCH ×2 (09:20→20:26)
[2017-09-25 09:33] LABS: BASOPHILS % 0.3 % (0.0-1.0); EOSINOPHILS # (AUTO) 0.2 (0.0-0.4); EOSINOPHILS % 1.7 % (0.0-6.0); HEMATOCRIT 26.7 % (34.2-44.1); HEMOGLOBIN 8.2 g/dL (12.0-16.0); MEAN CORPUSCULAR HEMOGLOBIN 31.5 pg (28-32); MEAN CORPUSCULAR HGB CONC 30.7 g/dL (31-35); MEAN CORPUSCULAR VOLUME 102.7 fL (81-99); NEUTROPHILS # (AUTO) 7.4 (2.1-6.9); NEUTROPHILS % 68.7 % (38.7-80.0); PLATELET COUNT 127 x10e3/uL (140-360); RED CELL DISTRIBUTION WIDTH 16.6 % (11.7-14.4)
[2017-09-25 10:02] LABS: ANION GAP 11.9 mmol/L (8-16); CREATININE, SERUM 1.01 mg/dL (0.57-1.11); MAGNESIUM 1.6 MG/DL (1.3-2.1); POTASSIUM 3.9 mmol/L (3.5-5.1)
[2017-09-25 10:14] LABS: FERRITIN 231.67 ng/mL (4.63-204.00)
[2017-09-25 11:39] LABS: FOLATE 34.2 ng/mL (7.0-15.4)
[2017-09-25] MEDS: DEXTROSE 50% SYRINGE 50 ML IV PRN (13:30)
[2017-09-25] MEDS: RIVAROXABAN 20 MG TABLET PO SCH (17:44)
[2017-09-25] MEDS: CEFTRIAXONE SOD 1 GM VIAL IV SCH (22:45)
[2017-09-26] MEDS: HALOPERIDOL LACTATE 5 MG/ML VIAL IV PRN ×2 (00:55→09:21)
[2017-09-26 01:51] VITALS: BP 135/60
[2017-09-26 05:54] VITALS: BP 126/59
[2017-09-26] MEDS: INSULIN REGULAR, HUMAN 100 UNIT/1 ML 3ML VIAL SQ SCH ×3 (07:30→16:07)
[2017-09-26 07:54] VITALS: BP 126/62
[2017-09-26] MEDS: INSULIN DETEMIR 100 UNIT/ML PEN SQ SCH (09:00)
[2017-09-26] MEDS: MAGNESIUM OXIDE 400 MG TAB PEG SCH ×2 (09:19→16:06)
[2017-09-26] MEDS: FAMOTIDINE 20 MG TAB NG SCH (09:19)
[2017-09-26] MEDS: LEVOTHYROXINE SODIUM 100 MCG TAB PO SCH (09:20)
[2017-09-26] MEDS: NYSTATIN 15 GM POWDER UD BTL TOP SCH ×2 (09:20→16:07)
[2017-09-26] MEDS: ASCORBIC ACID 500 MG TAB PO SCH ×2 (09:20→16:07)
[2017-09-26] MEDS: ZINC SULFATE 220 MG CAP PEG SCH ×2 (09:20→16:07)
[2017-09-26] MEDS: METOPROLOL TARTRATE 25 MG TAB PO SCH ×2 (09:20→16:07)
[2017-09-26] MEDS: BALSAM PERU/CASTOR OIL 60 GM OINT...G. TP SCH ×2 (09:20→16:07)
[2017-09-26] MEDS: MULTIVITAMINS/MINERALS TAB PO SCH (09:20)
[2017-09-26] MEDS: OYST-CAL-D 500MG TABLET PO SCH ×2 (09:20→16:07)
[2017-09-26] MEDS: AMIODARONE HCL 200 MG TAB PO SCH ×2 (09:20→16:07)
[2017-09-26] MEDS: NYSTATIN/TRIAMCINOLONE 15 GM CR TOP SCH ×2 (09:20→16:07)
[2017-09-26] MEDS: GABAPENTIN 300 MG CAP PO SCH ×2 (09:20→15:03)
[2017-09-26] MEDS: LACTOBACILLUS ACIDOPHILUS CAPSULE PO SCH ×2 (09:20→16:07)
--- NOTE | 2017-09-26 14:21 | Discharge Summary ---
PERTINENT HISTORY AND PHYSICAL FINDINGS: The patient is an 82-year-old lady who was sent from [facility] with rectal bleeding and evidence of C. difficile colitis on her labs at the [facility]. Her past medical history is significant for hypertension, coronary artery disease, aortic stenosis, type 2 diabetes mellitus, frequent urinary tract infections, and paroxysmal atrial fibrillation. SHE HAS A STATED ALLERGY TO ITRACONAZOLE. Family history is significant for hypertension and diabetes. Her social history includes residing at the correction and requiring assistance with most all of her activities of daily living. Swedish is her primary language. She is . She does not smoke, drink or use illegal drugs. ADMISSION DIAGNOSES: Included 1. Urinary tract infection. 2. Clostridium difficile colitis. 3. Hypertension with coronary artery disease and a history of coronary artery bypass graft with chronic kidney disease stage 3. 4. Paroxysmal atrial fibrillation. 5. Type 2 diabetes mellitus with chronic kidney disease stage 3. DISCHARGE DIAGNOSES: Include 1. Urinary tract infection with Morganella morganii, susceptible to Rocephin. 2. History of C. difficile colitis with diarrhea, C. difficile colitis ruled out. 3. Hypertension with coronary artery disease and a history of coronary artery bypass graft with chronic kidney disease stage 3. 4. Paroxysmal atrial fibrillation. 5. Type 2 diabetes mellitus with chronic kidney disease stage 3. 6. Dehydration. 7. Hypomagnesemia. On admission, a chest x-ray showed no acute disease. Her UA showed 10-20 white cells, 6-10 red cells, moderate bacteria. CBC showed a white blood cell count of 9.12 with a normal differential. H\T\H was 10.1 and 31.5, platelet count 179,000. CO2 18, creatinine 1.72, BUN 100 for a GFR of 28. Her normal is between 30 and 40. Glucose 144. After hydration, electrolytes were normal. CO2 17, creatinine 1.56, BUN 93 for a GFR of 32. Amylase 47, lipase 65. Transaminases slightly elevated, an AST of 43, ALT of 33. Bilirubin of 0.4, normal. Pro time 17.2 for an INR of 1.52, PTT 31.5. Alkaline phosphatase was elevated at 430. Yesterday the patient's sodium was 142, potassium 3.9, chloride 117, CO2 17, creatinine 1.01, BUN of 46 for a GFR of 52. WBCs 10.8, hemoglobin 8.2, hematocrit 26.7, platelets 127,000. Magnesium level yesterday was 1.6, and repletion with magnesium oxide via the PEG continues. On September 24, ammonia level 78. On September 23, a fecal occult blood test was negative. On September 24, a C. difficile toxin of stool was negative. On September 24, the lower extremity arterial Doppler ultrasound showed no significant stenosis. There were no consulting physicians on the case. Today is day 4 of Rocephin IV. Patient to continue Rocephin at the correction for a total of 7 days. She had been on Merrem in the past, and this is not continued from the correction. REVIEW OF SYSTEMS: The family states that patient's legs have been hot, which is unusual for her. The patient has minimal complaints. She is no longer having diarrhea. Her range of motion in her legs is improved with working with Physical Therapy. Family has requested Podiatry see the patient to have her toenails clipped. PHYSICAL EXAMINATION VITAL SIGNS: Temperature 96.7, heart rate 74, blood pressure 126/62 with a MAP of 83, respiratory rate 20, oxygen saturation 98% on 2 liters of oxygen via nasal cannula. GENERAL: The patient is awake, alert, supine, more alert than yesterday, no acute distress. LUNGS: Clear to auscultation. Respirations even and unlabored. Oxygen continues at 2 liters via nasal cannula. HEENT: Extraocular eye movements intact. NECK: Supple. No lymphadenopathy. CARDIOVASCULAR: Regular rate and rhythm. No murmur. ABDOMEN: Bowel sounds positive. Soft, nontender. Glucerna 1.2 infusing at 45 mL an hour via PEG. EXTREMITIES: No pitting edema. No clubbing, cyanosis. No signs or symptoms of DVT. NEUROLOGICAL: Intermittently confused. Nonfocal. SKIN: Stage 1 decubitus or redness on the back. Fingerstick blood glucose level 168 today. Yesterday fingerstick blood glucose levels were 86, 89 and 137. Continue all current medications and treatment. Patient will be discharged on her current tube feeds as aforementioned. Activity level as tolerated. Order was entered for patient to be seen by a bulldozer mechanic at [facility]. Family is aware of patient's transfer. Patient will be discharged to [facility] under hospice care. Dictated by: Chaka Jefry, BUSINESS EDITOR MINDI WHARTON MD Job#: [id number]
[2017-09-26] MEDS: RIVAROXABAN 20 MG TABLET PO SCH (16:07)
[2017-09-26 16:11] VITALS: BP 126/58
== END 2017-09-26 16:29 | DRG 689 ==
LOC: ER 19:58 → MED/SURG3 22:55
PROVIDERS: ADMIT Internal Medicine; ATTEND Internal Medicine
PROC: 02HV33Z Insertion of Infusion Device into Superior Vena Cava, Percutaneous Approach (ICD-10-PCS; principal; 2017-09-24)
DX: N39.0 Urinary tract infection, site not specified (principal); G93.41 Metabolic encephalopathy; L89.101 Pressure ulcer of unspecified part of back, stage 1; E11.22 Type 2 diabetes mellitus with diabetic chronic kidney disease; D64.9 Anemia, unspecified; I48.0 Paroxysmal atrial fibrillation; B96.89 Other specified bacterial agents as the cause of diseases classified elsewhere; I10 Essential (primary) hypertension; E86.0 Dehydration; E83.42 Hypomagnesemia; I25.10 Atherosclerotic heart disease of native coronary artery without angina pectoris; I12.9 Hypertensive chronic kidney disease with stage 1 through stage 4 chronic kidney disease, or unspecified chronic kidney disease; Z95.1 Presence of aortocoronary bypass graft; Z79.01 Long term (current) use of anticoagulants; N18.3 Chronic kidney disease, stage 3 (moderate); Z66 Do not resuscitate; F03.90 Unspecified dementia, unspecified severity, without behavioral disturbance, psychotic disturbance, mood disturbance, and anxiety; Z79.52 Long term (current) use of systemic steroids; M06.9 Rheumatoid arthritis, unspecified
CPT/HCPCS: 36415; 36569; 71045; 80048; 80053; 81001; 82140; 82150; 82270; 82607; 82728; 82746; 82948; 83540; 83690; 83735; 84466; 85007; 85025; 85027; 85610; 85730; 86850; 86900; 87086; 87186; 87493; 93005; 93925; 96376; 99285; J0696; J1630; J2060; J7030; J7799